=== PATIENT | female | born 1960 | race Caucasian/White ===

== ENCOUNTER 2016-09-05 13:04 | Day surgery (SDC) | payer BC ==
[2016-09-05] MEDS ORDERED: PROPOFOL 10 MG/ML VIAL IV ONE (14:00)
[2016-09-05] MEDS ORDERED: LIDOCAINE 2% MDV (20MG/ML) 20ML VIAL IV ONE (14:00)
--- NOTE | 2016-09-07 15:30 | Operative Note ---
DATE OF SURGERY: 09/05/16. OPERATION: Esophagogastroduodenoscopy with biopsy. REFERRING PHYSICIANS: 1. Danielito Javier 2. Myrtle Chi D.O. INDICATION: A history of esophageal ulcers. Patient with belching and episodic reflux. Upper endoscopy is performed at this time for further evaluation. She uses Nexium on a p.r.n. basis. ANESTHESIA: Intravenous sedation was administered by the Department of Anesthesiology and included Diprivan titrated to effect. PROCEDURE: Following informed consent from this alert individual, including a discussion of the risks and benefits of the procedure and an opportunity for the patient to ask questions, the patient was in the left lateral decubitus position. The Olympus [id number] video endoscope was inserted into the esophagus without resistance. The proximal esophagus has a normal appearance with normal folds and distensibility. The mid and distal esophagus, likewise, were free from mucosal changes. There were no ulcerations or erosions noted. The squamocolumnar junction was smooth and well defined and approximated the diaphragmatic hiatus. The stomach was then entered. The gastric fundus and pars media had a normal appearance with normal folds and distensibility. The antrum evaluated circumferentially demonstrated some mild superficial erythema without ulcerations noted. Biopsies were taken to rule out H. pylori infection. The pylorus itself was symmetrical and patent. The duodenal bulb, sweep, and descending duodenum were examined in a serial fashion and were found to be normal. The instrument was then withdrawn back into the body of the stomach. Retroflexion was accomplished following air insufflation and failed to demonstrate any abnormalities. The endoscope was straightened and withdrawn back through the stomach and esophagus and removed from the patient. She tolerated the procedure well and was returned to the recovery area in stable condition. IMPRESSION: 1. Mild antral gastritis. 2. Otherwise an unremarkable esophagogastroduodenoscopy. Biopsies were taken. RECOMMENDATIONS: The patient was advised that she should receive a copy of her pathology report at home in the next two to three weeks. She may continue to utilize Nexium on an as-needed basis. FLORENTIN HILL cc: Danielito Javier D.O. [facility]: [id number] [facility]
--- NOTE | 2016-09-07 15:41 | Operative Note ---
DATE OF SURGERY: 09/05/2016. REFERRING PHYSICIAN: 1. Myrtle Chi D.O. 2. Danielito Javier PROCEDURE: Colonoscopy to the cecum. INDICATION: Prior history of adenomatous polyps. She returns at this time for surveillance. ANESTHESIA: Intravenous sedation was administered by the Department of Anesthesiology and included Diprivan titrated to effect. PROCEDURE: Following informed consent from this alert individual, including a discussion of the risks and benefits of the procedure and an opportunity for the patient to ask questions, the patient was in the left lateral decubitus position. A digital rectal examination was performed. No abnormalities were noted. Following this, the Olympus PCF-180 video colonoscope was inserted into the rectum without resistance. The rectal mucosa had a normal appearance with normal folds and distensibility. The colonoscope was advanced up through the colon to the level of the cecum without much difficulty. Diverticulosis was noted in the left colon, but no other mucosal changes were appreciated. The cecum was well defined by noting the appendiceal orifice and ileocecal valve. The colon preparation was good. From the base of the cecum, the colonoscope was then withdrawn. No abnormalities were detected except for the above- mentioned diverticulosis in the left colon. Retroflexion in the rectum was endoscopically unremarkable. The endoscope was straightened and removed. The patient tolerated the procedure well and was returned to the recovery area in stable condition. IMPRESSION: 1. Diverticulosis in the left colon. 2. An otherwise unremarkable colonoscopy to the cecum. RECOMMENDATIONS: The patient was advised to have a recheck colonoscopy in five years' time for polyp surveillance. She will otherwise follow up with Dr. Chi and Danielito Javier FLORENTIN HILL D.O. Date Time cc: Caren Blevins P.A. [facility] CENTERCamila
== END 2016-09-05 14:53 | disposition home or self-care (01) ==
LOC: HOP 13:04
PROVIDERS: ATTEND Internal Medicine Gastroenterology
DX: K29.50 Unspecified chronic gastritis without bleeding (principal)

== ENCOUNTER 2016-09-20 14:53 | Emergency (ER) | payer BC ==
--- NOTE | 2016-09-20 15:13 | Emergency Department Record ---
History of Present Illness - General Chief Complaint: Shortness of breath Stated Complaint: SOB,CHEST PRESSURE Time Seen by Provider: 09/20/16 15:08 Source: Patient Mode of Arrival: Ambulatory Limitations: No limitations - History of Present Illness Initial Comments: 55 yo female presents to ED with a CC of "chest pressure" that began just prior to arrival. Patient denies fever, chills, or recent illness symptoms. Patient reports a history of atrial fibrillation previously, sees Dr. Montemayor regularly. MD Complaint: Chest pain Onset/Timin -: Minutes(s) Consistency: Constant Improves With: Nothing Worsens With: Nothing Known History Of: Other Associated Symptoms: Denies other symptoms Treatments Prior to Arrival: Asprin - Related Data Home Medications Medication Instructions Recorded Confirmed Last Taken Aspirin [Aspirin EC] 81 mg PO DAILY 03/18/15 09/20/16 1 Day Ago Esomeprazole Magnesium [Nexium 22.3 mg PO DAILY 03/18/15 09/20/16 1 Day Ago 24Hr] Amoxicillin [Amoxicillin] 500 mg PO BID 09/20/16 09/20/16 Unknown Previous Rx's Medication Instructions Recorded Diltiazem HCl [Cardizem] 60 mg PO TID #90 tablet 04/28/15 Allergies Allergy/AdvReac Type Severity Reaction Status Date / Time ciprofloxacin [From Cipro] Allergy Mild LIP Unverified 08/26/16 11:22 NUMBNESS ciprofloxacin HCl Allergy Mild LIP Unverified 08/26/16 11:22 [From Cipro] NUMBNESS erythromycin base Allergy Unknown VOMITING Unverified 08/26/16 10:19 [ERYTHROMYCIN BASE] meperidine [MEPERIDINE] Allergy Unknown ALTERED Unverified 08/26/16 10:19 MENTAL STATUS Sulfa (Sulfonamide Allergy Unknown RASH Unverified 08/26/16 10:19 Antibiotics) [SULFA (SULFONAMIDE ANTIBIOTICS)] meperidine HCl [From Demerol] AdvReac HYPERSENSIT Unverified 08/26/16 10:19 IVITY Travel Screening - Travel/Exposure Within Last 30 Days Have you traveled within the last 30 days?: No Review of Systems Constitutional: Denies: Chills, Fever, Malaise, Night sweats Eyes: Denies: Eye discharge, Eye pain ENT: Denies: Congestion, Ear pain, Epistaxis Respiratory: Denies: Cough, Dyspnea Cardiovascular: Reports: Chest pain. Denies: Dyspnea on exertion, Palpitations Endocrine: Denies: Fatigue, Heat or cold intolerance Gastrointestinal: Denies: Abdominal pain, Nausea, Vomiting Genitourinary: Denies: Dysuria, Frequency, Hematuria Musculoskeletal: Denies: Arthralgia, Back pain, Gout, Joint swelling Skin: Denies: Bruising, Change in color, Change in hair/nails Neurological: Denies: Abnormal gait, Confusion, Headache, Seizure Psychiatric: Denies: Anxiety Hematological/Lymphatic: Denies: Anemia, Blood Clots Past Medical History - SOCIAL HISTORY Smoking Status: Former smoker - RESPIRATORY Hx Respiratory Disorders: Yes Hx Sleep Apnea: Yes Hx of CPAP: No - CARDIOVASCULAR Hx Cardio Disorders: Yes Hx Abnormal EKG: Yes Hx Cardiac Cath: No Hx Chest Pain: No Hx CHF: No Hx Deep Vein Thrombosis: No Hx Edema: No Hx Heart Attack: No Hx Hypertension: Yes Hx Hypotension: No Hx Irregular Heartbeat: Yes (A-Fib) Hx Palpitations: Yes Hx Pacemaker/Defib: No Hx Vascular Disease: No - NEURO Hx Neuro Disorders: No - GI Hx GI Disorders: Yes Hx Reflux: Yes Hx Ulcer: Yes Hx of Polyps: Yes Comment:: hx of constipation - Hx Genitourinary Disorders: Yes Hx Bladder Problem: Yes (bladder spasms) Comment:: n/a - ENDOCRINE Hx Endocrine Disorders: No Hx Diabetes: No Hx Thyroid Disease: No - MUSCULOSKELETAL Hx Musculoskeletal Disorders: Yes Hx Arthritis: No Hx Back Injury: No Hx Fibromyalgia: No Hx Gout: No Hx Musculoskeletal Disease: No Hx Osteoporosis: No - PSYCH Hx Psych Problems: Yes Hx Anxiety: Yes Hx Behavior Problems: No Hx Depression: Yes Hx Emotional Abuse: No Hx Sexual Abuse: No Hx Suicide Attempt: No - HEMATOLOGY/ONCOLOGY Hx Hematology/Oncology Disorders: No Comment:: Psoriasis Family Medical History Any Significant Family History?: Yes Hx Alcohol Use: Father, Mother Hx Anxiety: Father Hx Diabetes: Grandparents *Diabetes Comment: Both Grandmothers. Hx Heart Disease: Mother *Heart Comment: Atrial fib Hx HTN: Father Hx Stroke: Brother/Sister *Stroke Comment: sister had a stroke. Physical Exam - General General Appearance: Alert, Oriented x3, Cooperative, No acute distress Limitations: No limitations - Head Head exam: Atraumatic, Normocephalic, Normal inspection Head exam detail: negative: Abrasion, Contusion, Dickinson's sign, General tenderness, Hematoma, Laceration - Eye Eye exam: Normal appearance. negative: Conjunctival injection, Periorbital swelling, Periorbital tenderness, Scleral icterus - ENT Ear exam: negative: Auricular hematoma, Auricular trauma Nasal Exam: negative: Discharge, Dried blood, Foreign body Mouth exam: negative: Drooling, Laceration, Muffled voice, Tongue elevation - Neck Neck exam: Normal inspection. negative: Meningismus, Tenderness - Respiratory Respiratory exam: Normal lung sounds bilaterally. negative: Respiratory distress, Rhonchi, Stridor, Wheezes - Cardiovascular Cardiovascular Exam: Irregular rhythm, Tachycardia - GI/Abdominal GI/Abdominal exam: Soft. negative: Distended, Rebound, Rigid, Tenderness - Rectal Rectal exam: Deferred - exam: Deferred - Extremities Extremities exam: Normal inspection. negative: Calf tenderness, Pedal edema, Tenderness - Back Back exam: Reports: Normal inspection. Denies: CVA tenderness (R), CVA tenderness (L) - Neurological Neurological exam: Alert, Normal gait, Oriented X3 - Psychiatric Psychiatric exam: Normal affect, Normal mood - Skin Skin exam: Normal color. negative: Abrasion Type of lesion: negative: abrasion Course Vital Signs 09/20/16 14:55 Temperature 97.9 F Pulse Rate 113 H Respiratory 20 Rate Blood Pressure 146/96 Pulse Ox 97 - Reevaluation(s) Reevaluation #1: 09/20/16 15:25 EKG: Atrial Fibrillation 97 Normal axis, irregular R-R intervals nonspecific ST-T wave changes Previous EKG: NSR 61 (08/29/15) 09/20/16 15:43 Reevaluation #2: 09/20/16 16:10 Labs reviewed and are grossly unremarkable for an acute process. CXR: No acute process. patient has converted back to NSR, heparin held at this time. Patient is deciding on transfer for 2-D echo and cardiac evaluation. Reevaluation #3: 09/20/16 16:32 Case was discussed with Dr. Cervantes, will accept admission. Medical Decision Making - Lab Data Result diagrams: 09/20/16 15:25 09/20/16 15:25 Disposition Disposition: Transfer Clinical Impression: Atrial fibrillation Qualifiers: Atrial fibrillation type: paroxysmal Qualified Code(s): I48.0 - Paroxysmal atrial fibrillation Chest pain Qualifiers: Chest pain type: unspecified Qualified Code(s): R07.9 - Chest pain, unspecified Transfer To: [facility] Reason For Transfer: Atrial fibrillation Accepting Physician: Chest Pain Time Discussed w/Accepting Physician: 16:33 Forms: Patient Portal Access Time of Disposition: 16:33
[2016-09-20] MEDS ORDERED: HEPARIN SODIUM 1000 UNIT/1 ML 10ML VIAL IVP ONE (15:22)
[2016-09-20] MEDS ORDERED: HEPARIN SODIUM/D5W 25,000 UNITS in DEXTROSE 5 % IN WATER 1 BAG IV SCH ×2 (15:30)
[2016-09-20 15:36] LABS: BASO % 0.3 % (0-6); EOS % 1.9 % (0-6); GRAN % 68.3 % (47-80); HEMATOCRIT 47.8 % (35.0-47.0); HEMOGLOBIN 15.2 gm/dl (11.6-16.0); MEAN CELL VOLUME 93.2 fl (81-97); MEAN CORPUSCULAR HEMOGLOBIN 29.6 pg (27-33); MEAN CORPUSCULAR HGB CONC 31.8 g/dl (32-36); MEAN PLATELET VOLUME 9.2 fl (7.4-10.4); MONO % 6.5 % (0-9); PLATELET COUNT 291 K/uL (130-400); RED BLOOD COUNT 5.13 M/uL (3.80-5.40); RED CELL DISTRIBUTION WIDTH 13.4 % (11.5-14.5); WHITE BLOOD COUNT W/O DIFF 6.8 K/uL (4.2-12.2)
[2016-09-20 15:48] LABS: ALB/GLOB RATIO 1.1 (1.1-1.8); ALBUMIN 4.5 gm/dL (3.5-5.0); ALKALINE PHOSPHATASE 119 U/L (38-126); ALT/SGPT 27 U/L (9-52); ANION GAP 13.5 (7-16); AST/SGOT 22 U/L (14-36); BILIRUBIN,TOTAL 0.65 mg/dL (0.2-1.3); BLOOD UREA NITROGEN 13 mg/dL (7-17); CARBON DIOXIDE 25.5 mmol/L (22-30); CREATINE PHOSPHOKINASE 114 U/L (30-135); CREATININE 0.7 mg/dL (0.52-1.04); EST GLOMERULAR FILTRATION RATE > 60 ml/min; GLUCOSE,RANDOM 150 mg/dL (70-110); TOTAL PROTEIN 8.6 gm/dL (6.3-8.2)
[2016-09-20 16:00] LABS: CKMB 1.1 ug/L (0-6)
[2016-09-20 16:03] LABS: TROPONIN I < 0.012 ng/mL (0.00-0.034)
[2016-09-20] MEDS ORDERED: RIVAROXABAN 20 MG TABLET PO SCH (17:30)
--- NOTE | 2016-09-23 14:39 | RADIOLOGY REPORT ---
EXAM: CHEST, TWO VIEWS HISTORY: CHEST PAIN. TECHNIQUE: PA and lateral views of the chest were obtained. Comparison: Two view chest dated 06/26/16. FINDINGS: The heart size is normal. The lungs appear expanded with no acute infiltrate seen. No pleural effusion or pneumothorax evident. IMPRESSION: THE CHEST APPEARS NEGATIVE WITH NO DEFINITE ACUTE INFILTRATE SEEN. JOB NUMBER: [id number] MTDD
== END 2016-09-20 17:43 | disposition short-term general hospital (02) ==
LOC: ER 14:53
DX: I48.0 Paroxysmal atrial fibrillation (principal); I10 Essential (primary) hypertension; Z87.891 Personal history of nicotine dependence
CPT/HCPCS: 71020; 80053; 82550; 82553; 84484; 85025; 93005; 99285

== ENCOUNTER 2016-10-05 23:10 | Emergency (ER) | payer BC ==
--- NOTE | 2016-10-05 23:41 | Emergency Department Record ---
History of Present Illness - General Chief Complaint: Palpitations Time Seen by Provider: 10/05/16 23:27 Source: Patient Mode of Arrival: Ambulatory Limitations: No limitations - History of Present Illness Initial Comments: The patient has a long hx of intermittent Afib and now went into it again at 7: 30 pm tonight. She felt the irregular heart beating and the vague discomfort that she normally gets with it. There was no SOB, JOCELYNE, or sweating. The patient did have an episode of the same thing 2 weeks ago and was transferred from here at [facility] to [facility]. She said she did have a neg EST on that visit and she does have an appointment with her Wireless Construction Manager in 3 weeks. MD Complaint: Atrial fibrillation Onset/Timin -: Hour(s) Arrythmia History: Atrial fibrillation Associated Symptoms: Denies other symptoms Treatments Prior to Arrival: Calcium channel katya Treatment Prior to Arrival Comment:: Aspirin - Related Data Home Medications Medication Instructions Recorded Confirmed Last Taken Aspirin [Aspirin EC] 81 mg PO DAILY 03/18/15 10/05/16 10/05/16 Esomeprazole Magnesium [Nexium 22.3 mg PO DAILY 03/18/15 10/05/16 10/05/16 24Hr] Previous Rx's Medication Instructions Recorded Diltiazem HCl [Cardizem] 60 mg PO TID #90 tablet 04/28/15 Allergies Allergy/AdvReac Type Severity Reaction Status Date / Time ciprofloxacin [From Cipro] Allergy Mild LIP Verified 10/05/16 23:24 NUMBNESS ciprofloxacin HCl Allergy Mild LIP Verified 10/05/16 23:24 [From Cipro] NUMBNESS erythromycin base Allergy Unknown VOMITING Verified 10/05/16 23:24 [ERYTHROMYCIN BASE] meperidine [MEPERIDINE] Allergy Unknown ALTERED Verified 10/05/16 23:24 MENTAL STATUS Sulfa (Sulfonamide Allergy Unknown RASH Verified 10/05/16 23:24 Antibiotics) [SULFA (SULFONAMIDE ANTIBIOTICS)] meperidine HCl [From Demerol] AdvReac HYPERSENSIT Verified 10/05/16 23:24 IVITY Travel Screening - Travel/Exposure Within Last 30 Days Have you traveled within the last 30 days?: No - Travel/Exposure Within Last Year Have you traveled outside the [place] in the last year?: No - Additonal Travel Details Have you been exposed to anyone with a communicable illness?: No Review of Systems Constitutional: Denies: Chills, Fever Eyes: Denies: Eye discharge ENT: Denies: Congestion Respiratory: Denies: Cough, Dyspnea Past Medical History - SOCIAL HISTORY Smoking Status: Former smoker - RESPIRATORY Hx Respiratory Disorders: Yes Hx Sleep Apnea: Yes Hx of CPAP: No - CARDIOVASCULAR Hx Cardio Disorders: Yes Hx Abnormal EKG: Yes Hx Cardiac Cath: No Hx Chest Pain: No Hx CHF: No Hx Deep Vein Thrombosis: No Hx Edema: No Hx Heart Attack: No Hx Hypertension: Yes Hx Hypotension: No Hx Irregular Heartbeat: Yes (A-Fib) Hx Palpitations: Yes Hx Pacemaker/Defib: No Hx Vascular Disease: No - NEURO Hx Neuro Disorders: No - GI Hx GI Disorders: Yes Hx Reflux: Yes Hx Ulcer: Yes Hx of Polyps: Yes Comment:: hx of constipation - Hx Genitourinary Disorders: Yes Hx Bladder Problem: Yes (bladder spasms) Comment:: n/a - ENDOCRINE Hx Endocrine Disorders: No Hx Diabetes: No Hx Thyroid Disease: No - MUSCULOSKELETAL Hx Musculoskeletal Disorders: Yes Hx Arthritis: No Hx Back Injury: No Hx Fibromyalgia: No Hx Gout: No Hx Musculoskeletal Disease: No Hx Osteoporosis: No - PSYCH Hx Psych Problems: Yes Hx Anxiety: Yes Hx Behavior Problems: No Hx Depression: Yes Hx Emotional Abuse: No Hx Sexual Abuse: No Hx Suicide Attempt: No - HEMATOLOGY/ONCOLOGY Hx Hematology/Oncology Disorders: No Comment:: Psoriasis Family Medical History Any Significant Family History?: No Hx Alcohol Use: Father, Mother Hx Anxiety: Father Hx Diabetes: Grandparents *Diabetes Comment: Both Grandmothers. Hx Heart Disease: Mother *Heart Comment: Atrial fib Hx HTN: Father Hx Stroke: Brother/Sister *Stroke Comment: sister had a stroke. Physical Exam - General General Appearance: Alert, Oriented x3, Cooperative, No acute distress - Head Head exam: Atraumatic, Normocephalic, Normal inspection - Eye Eye exam: Normal appearance, PERRL - Neck Neck exam: Normal inspection, Full ROM. negative: Tenderness - Respiratory Respiratory exam: Normal lung sounds bilaterally. negative: Respiratory distress - Cardiovascular Cardiovascular Exam: Regular rate, Normal rhythm, Normal heart sounds - GI/Abdominal GI/Abdominal exam: Soft, Normal bowel sounds. negative: Tenderness - Extremities Extremities exam: Normal inspection, Full ROM, Normal capillary refill. negative: Tenderness - Neurological Neurological exam: Normal gait. negative: Abnormal gait Course Vital Signs 10/05/16 23:12 Temperature 97.4 F L Pulse Rate 84 Respiratory 16 Rate Blood Pressure 131/76 Pulse Ox 98 - Reevaluation(s) Reevaluation #1: The patient is doing well. She denies any CP, SOB, JOCELYNE or any visual changes. There are no palpitations like when she is in Afib. Her monitor has been NSR since she has been in the ED. 10/06/16 00:39 Reevaluation #2: The patient is doing very well. She denies any symptoms, or any CP, SOB or JOCELYNE. The 2nd EKG is WNL and in NSR. I did get her up walking and she denies any problems or issues. She is to continue her medicine and see her PCP and Wireless Construction Manager as directed. 10/06/16 00:59 Medical Decision Making - Data Complexity MDM Data: EKG Ordered and/or Reviewed - Lab Data Result diagrams: 10/05/16 23:43 10/05/16 23:43 - EKG Data -: EKG Interpreted by Me EKG: No Acute Changes, Normal EKG, Unchanged From Previous Disposition Disposition: Discharge Clinical Impression: Palpitations Disposition: Home, Self-Care Condition: (1) Good Instructions: Palpitations (ED) Additional Instructions: Please continue your regular medicines. Please see your Wireless Construction Manager as planned previously. Return to the ER for any problems or return of the Afib. Forms: Patient Portal Access Time of Disposition: 00:56
[2016-10-05 23:53] LABS: BASO % 0.2 % (0-6); GRAN % 65.4 % (47-80); HEMATOCRIT 48.5 % (35.0-47.0); HEMOGLOBIN 15.6 gm/dl (11.6-16.0); LYMPH % 23.3 % (16-45); MEAN CELL VOLUME 93.1 fl (81-97); MEAN CORPUSCULAR HEMOGLOBIN 29.9 pg (27-33); MEAN CORPUSCULAR HGB CONC 32.2 g/dl (32-36); MEAN PLATELET VOLUME 9.5 fl (7.4-10.4); MONO % 8.1 % (0-9); PLATELET COUNT 281 K/uL (130-400); RED BLOOD COUNT 5.21 M/uL (3.80-5.40); WHITE BLOOD COUNT W/O DIFF 6.6 K/uL (4.2-12.2)
[2016-10-06 00:07] LABS: ANION GAP 15.4 (7-16); BLOOD UREA NITROGEN 15 mg/dL (7-17); CARBON DIOXIDE 26.6 mmol/L (22-30); CREATINE PHOSPHOKINASE 88 U/L (30-135); CREATININE 0.7 mg/dL (0.52-1.04); EST GLOMERULAR FILTRATION RATE > 60 ml/min; GLUCOSE,RANDOM 116 mg/dL (70-110)
[2016-10-06 00:19] LABS: CKMB 0.9 ug/L (0-6)
[2016-10-06 00:21] LABS: TROPONIN I < 0.012 ng/mL (0.00-0.034)
== END 2016-10-06 01:06 | disposition home or self-care (01) ==
LOC: ER 23:10
DX: R00.2 Palpitations (principal); I48.91 Unspecified atrial fibrillation
CPT/HCPCS: 80048; 82550; 82553; 84484; 85025; 93005; 93010; 99284

== ENCOUNTER 2016-11-03 20:41 | Observation (INO) | payer BC ==
[2016-11-03] MEDS ORDERED: ASPIRIN 325 MG TABLET PO ONE (21:11)
[2016-11-03] MEDS ORDERED: LORAZEPAM 2 MG/ML VIAL IV ONE (21:12)
[2016-11-03] MEDS ORDERED: METOPROLOL TART 5 MG/5 ML VIAL IV ONE (21:15)
--- NOTE | 2016-11-03 21:15 | Emergency Department Record ---
History of Present Illness - General Chief Complaint: Chest Pain Stated Complaint: NAUSEA AND CHEST PAIN Time Seen by Provider: 11/03/16 21:02 Source: Patient Mode of Arrival: Ambulatory Limitations: No limitations - History of Present Illness Initial Comments: The patient is here due to L chest discomfort with palpitations which started about an hour and a half ago. She has a long hx of intermittent Afib and has been to the ER multiple times for it. She states she has always converted to NSR on her own and has never needed to be cardioverted. She denies any SOB, JOCELYNE , sweating, nausea or lightheadedness. MD Complaint: Chest pain Onset/Timin -: Hour(s) Onset: During rest Pain Location: Left chest Pain Radiation: None Severity: Mild Severity scale (1-10): 10 Quality: Other Consistency: Intermittent Improves With: Nothing Worsens With: Nothing Context: Other Anginal Symptoms: Nausea Treatments Prior to Arrival: None Treatment Prior to Arrival Comment:: diltiazem - Related Data Home Medications Medication Instructions Recorded Confirmed Last Taken Aspirin [Aspirin EC] 81 mg PO DAILY 03/18/15 11/03/16 10/05/16 Esomeprazole Magnesium [Nexium 22.3 mg PO DAILY 03/18/15 11/03/16 10/05/16 24Hr] Previous Rx's Medication Instructions Recorded Diltiazem HCl [Cardizem] 60 mg PO TID #90 tablet 04/28/15 Allergies Allergy/AdvReac Type Severity Reaction Status Date / Time ciprofloxacin [From Cipro] Allergy Mild LIP Verified 10/05/16 23:24 NUMBNESS ciprofloxacin HCl Allergy Mild LIP Verified 10/05/16 23:24 [From Cipro] NUMBNESS erythromycin base Allergy Unknown VOMITING Verified 10/05/16 23:24 [ERYTHROMYCIN BASE] meperidine [MEPERIDINE] Allergy Unknown ALTERED Verified 10/05/16 23:24 MENTAL STATUS Sulfa (Sulfonamide Allergy Unknown RASH Verified 10/05/16 23:24 Antibiotics) [SULFA (SULFONAMIDE ANTIBIOTICS)] meperidine HCl [From Demerol] AdvReac HYPERSENSIT Verified 10/05/16 23:24 IVITY Travel Screening - Travel/Exposure Within Last 30 Days Have you traveled within the last 30 days?: No - Travel/Exposure Within Last Year Have you traveled outside the [place] in the last year?: No - Additonal Travel Details Have you been exposed to anyone with a communicable illness?: No - Travel Symptoms Symptom Screening: None Review of Systems Constitutional: Denies: Chills, Fever Eyes: Denies: Eye discharge ENT: Denies: Congestion Respiratory: Denies: Cough, Dyspnea Cardiovascular: Denies: Arrhythmia, Chest pain, Dyspnea on exertion Endocrine: Denies: Fatigue Gastrointestinal: Denies: Abdominal pain, Nausea Genitourinary: Denies: Dysuria Musculoskeletal: Denies: Back pain Skin: Denies: Bruising Past Medical History - SOCIAL HISTORY Smoking Status: Former smoker Alcohol Use: None Drug Use: None - RESPIRATORY Hx Respiratory Disorders: Yes Hx Sleep Apnea: Yes Hx of CPAP: No - CARDIOVASCULAR Hx Cardio Disorders: Yes Hx Abnormal EKG: Yes Hx Cardiac Cath: No Hx Chest Pain: No Hx CHF: No Hx Deep Vein Thrombosis: No Hx Edema: No Hx Heart Attack: No Hx Hypertension: Yes Hx Hypotension: No Hx Irregular Heartbeat: Yes (A-Fib) Hx Palpitations: Yes Hx Pacemaker/Defib: No Hx Vascular Disease: No - NEURO Hx Neuro Disorders: No - GI Hx GI Disorders: Yes Hx Reflux: Yes Hx Ulcer: Yes Hx of Polyps: Yes Comment:: hx of constipation - Hx Genitourinary Disorders: Yes Hx Bladder Problem: Yes (bladder spasms) Comment:: n/a - ENDOCRINE Hx Endocrine Disorders: No Hx Diabetes: No Hx Thyroid Disease: No - MUSCULOSKELETAL Hx Musculoskeletal Disorders: Yes Hx Arthritis: No Hx Back Injury: No Hx Fibromyalgia: No Hx Gout: No Hx Musculoskeletal Disease: No Hx Osteoporosis: No - PSYCH Hx Psych Problems: Yes Hx Anxiety: Yes Hx Behavior Problems: No Hx Depression: Yes Hx Emotional Abuse: No Hx Sexual Abuse: No Hx Suicide Attempt: No - HEMATOLOGY/ONCOLOGY Hx Hematology/Oncology Disorders: No Comment:: Psoriasis Family Medical History Any Significant Family History?: Yes Hx Alcohol Use: Father, Mother Hx Anxiety: Father Hx Diabetes: Grandparents *Diabetes Comment: Both Grandmothers. Hx Heart Disease: Mother *Heart Comment: Atrial fib Hx HTN: Father Hx Stroke: Brother/Sister *Stroke Comment: sister had a stroke. Physical Exam - General General Appearance: Alert, Oriented x3, Cooperative, No acute distress - Head Head exam: Atraumatic, Normocephalic, Normal inspection - Eye Eye exam: Normal appearance, PERRL - ENT Throat exam: Normal inspection. negative: Tonsillar erythema, Tonsillar exudate - Neck Neck exam: Normal inspection, Full ROM. negative: Tenderness - Respiratory Respiratory exam: Normal lung sounds bilaterally. negative: Respiratory distress - Cardiovascular Cardiovascular Exam: Irregular rhythm. negative: Regular rate, Normal rhythm, Systolic murmur - GI/Abdominal GI/Abdominal exam: Soft, Normal bowel sounds. negative: Tenderness - Extremities Extremities exam: Normal inspection, Full ROM, Normal capillary refill. negative: Tenderness - Neurological Neurological exam: Alert, Normal gait. negative: Abnormal gait Course Vital Signs 11/03/16 20:50 Temperature 98.6 F Pulse Rate 120 H Respiratory 20 Rate Blood Pressure 141/72 Pulse Ox 96 - Reevaluation(s) Reevaluation #1: The patient is doing very well at this time. She is resting comfortably and her HR is in the 70's. She denies any significant pain or discomfort. 11/03/16 21:49 Reevaluation #2: The patient is doing very well at this time. She denies any CP, SOB, or JOCELYNE but is still in Afib with the rate well controlled in the 70's. I explained to her we will start her on Lovenox and admit her to the hospital. She will be able to see Dr. Redding tomorrow from [facility] for further evaluation and recommendations. Due to the fact she has always converted to NSR on her own I will use Lovenox instead of Heparin for anticoagulation. 11/03/16 22:42 Medical Decision Making - Data Complexity MDM Data: Labs Ordered and/or Reviewed, EKG Ordered and/or Reviewed - Lab Data Result diagrams: 11/03/16 21:26 11/03/16 21:26 - EKG Data -: EKG Interpreted by Me (Afib at 130, neg ischemic changes.) Disposition Disposition: Admit Clinical Impression: Atrial fibrillation with controlled ventricular response Disposition: Still a Patient at [facility] Decision to Admit: Admit from ER Decision to Admit Date: 11/03/16 Decision to Admit Time: 22:44 Accepting Physician: Taya Time Discussed w/Accepting Physician: 22:44 Condition: (2) Stable Forms: Patient Portal Access Time of Disposition: 22:44
[2016-11-03 21:35] LABS: BASO % 0.2 % (0-6); EOS % 1.2 % (0-6); GRAN % 62.7 % (47-80); HEMATOCRIT 48.5 % (35.0-47.0); LYMPH % 25.4 % (16-45); MEAN CELL VOLUME 91.9 fl (81-97); MEAN CORPUSCULAR HEMOGLOBIN 30.3 pg (27-33); MEAN PLATELET VOLUME 9.4 fl (7.4-10.4); MONO % 10.5 % (0-9); PLATELET COUNT 254 K/uL (130-400); RED BLOOD COUNT 5.28 M/uL (3.80-5.40); RED CELL DISTRIBUTION WIDTH 13.3 % (11.5-14.5); WHITE BLOOD COUNT W/O DIFF 4.9 K/uL (4.2-12.2)
[2016-11-03 21:50] LABS: ANION GAP 12.3 (7-16); BLOOD UREA NITROGEN 15 mg/dL (7-17); CARBON DIOXIDE 24.7 mmol/L (22-30); CREATINE PHOSPHOKINASE 77 U/L (30-135); CREATININE 0.8 mg/dL (0.52-1.04); EST GLOMERULAR FILTRATION RATE > 60 ml/min; GLUCOSE,RANDOM 110 mg/dL (70-110)
[2016-11-03 22:02] LABS: CKMB 0.5 ug/L (0-6)
[2016-11-03 22:03] LABS: TROPONIN I < 0.012 ng/mL (0.00-0.034)
[2016-11-03 22:07] LABS: INR 1.02; PARTIAL THROMBOPLASTIN TIME 26.8 SECONDS (24.5-39.1); PROTHROMBIN TIME (PATIENT) 11.5 SECONDS (9.5-12.1)
[2016-11-03] MEDS ORDERED: ENOXAPARIN 100 MG/ML SYR SQ ONE (22:39)
[2016-11-03] MEDS ORDERED: LORAZEPAM 0.5 MG TABLET PO PRN (23:37)
[2016-11-03] MEDS ORDERED: ACETAMINOPHEN 500 MG TABLET PO PRN (23:37)
[2016-11-04 03:53] LABS: CKMB 0.4 ug/L (0-6)
[2016-11-04 03:55] LABS: TROPONIN I < 0.012 ng/mL (0.00-0.034)
[2016-11-04] MEDS ORDERED: DILTIAZEM HCL 30 MG TABLET PO SCH ×4 (04:00→20:00)
[2016-11-04] MEDS ORDERED: ESOMEPRAZOLE PO PRN (09:15)
[2016-11-04] MEDS ORDERED: DILTIAZEM HCL 60 MG PO SCH (10:00)
[2016-11-04] MEDS ORDERED: ASPIRIN 325 MG TAB ENTERIC-COATED PO SCH (10:00)
--- NOTE | 2016-11-04 10:08 | Discharge Note ---
Discharge Note - Date Date of Discharge Note: 11/04/16 Disposition: Home, Self-Care Condition: (1) Good Additional Instructions: follow up with primary in one week chqange cardizem to cardizem(diltiazem) CD 180 mg daily if breakthrough atrila fib take one short acting cardizem 60 mag and if not better in one hour go to ED. Prescriptions: Diltiazem HCl [Diltiazem ER] 180 mg PO DAILY #30 tab.er.24h Forms: Patient Portal Access
[2016-11-04 11:41] LABS: CKMB 0.5 ug/L (0-6)
[2016-11-04 11:45] LABS: TROPONIN I < 0.012 ng/mL (0.00-0.034)
[2016-11-04] MEDS ORDERED: DILTIAZEM 60 MG PO SCH (12:00)
--- NOTE | 2016-11-04 16:01 | Discharge Summary ---
DATE OF DISCHARGE: 11/04/2016. DISCHARGE DIAGNOSES: 1. Atrial fibrillation; converted after three hours with her Cardizem and one dose of Lopressor 5.0 mg intravenous. She is in normal sinus rhythm at this time. 2. Anxiety and depression. 3. Previous history of atrial fibrillation, but her CHADS score is low, and she needs no anticoagulation. ATTENDING PHYSICIAN: Calderon Bain D.O. REASON FOR HOSPITALIZATION: This 55-year-old female presented to the emergency department with fullness in her epigastric chest area and a swishing sensation when her heart was going fast. HISTORY OF THE PRESENT ILLNESS: She came to the emergency room and she was in atrial fibrillation with a rate of about 120. She was given 5.0 mg of Lopressor intravenous and it came down into the 70s. She converted about three hours later to normal sinus rhythm and has been in normal sinus rhythm since then. DIAGNOSTIC DATA: EKG showed no acute changes. Cardiac enzymes were negative. CONSULTATION: She had a cardiology consult with Dr. Redding who felt that she did not warrant anticoagulation because of a low CHADS score. He recommended instead of using the Cardizem at 60 mg three times a day that she take Cardizem- CD 180 mg once a day. If she has a breakthrough episode of atrial fibrillation , she can take her short-acting 60 mg Cardizem. If it does not go away in an hour she should return to the emergency department for evaluation. HOSPITAL COURSE: Improved. DISCHARGE INSTRUCTIONS: 1. Follow up with her primary physician, Danielito Javier 2. Activity as tolerated. 3. Diet as tolerated. DISCHARGE MEDICATIONS: 1. Continue her home medications. However, stop the short-acting Cardizem and only use it for breakthrough tachycardia and atrial fibrillation. She should go on diltiazem extended relief 180 mg once a day. I have given her 30 pills. Use her short-acting Cardizem or diltiazem 60 mg for breakthrough tachycardia. 2. Nexium once a day, aspirin 81 mg a day. Calderon Bain D.O. Date Time JOB NUMBER: [id number] [id number]
--- NOTE | 2016-11-07 07:16 | History and Physical Report ---
DATE OF DICTATION: 11/04/2016. DATE OF ADMISSION: 11/03/2016. CHIEF COMPLAINT: Tachycardia and chest pressure. HISTORY OF PRESENT ILLNESS: She actually described her chest pressure as just a whooshing feeling in her chest. At the time of my evaluation on 11/04/2016, she had no chest pain. She denied any caffeine use or anything that would cause her tachycardia. She states that she has had atrial fibrillation three or four times in the past. Because her CHADS score is low, she is not on any anticoagulants. 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 Montemayor. She was initially evaluated by Dr. Velez and was admitted to the hospital for serial cardiac enzymes. In the emergency department she was given Lopressor 5.0 mg intravenous and her normal Cardizem 60 mg. This slowed her heart rate from 130 down to 70, and about three hours later she converted to normal sinus rhythm. PAST MEDICAL HISTORY: She has had atrial fibrillation two or three times in the past, anxiety and depression. Her primary physician is Dr. Sandra in [place]. Gastroesophageal reflux disease. PAST SURGICAL HISTORY: Dilatation and curettage times two. MEDICATIONS ON ADMISSION: Nexium once a day, aspirin 81 mg daily. Diltiazem 60 mg three times a day, but she states that she has been missing some of these pills on and off. ALLERGIES: Cipro, erythromycin, Demerol, sulfa. FAMILY/PSYCHOSOCIAL HISTORY: She is a former smoker; stopped in 2015. Her mother and father had alcohol problems. Her father had anxiety problems. Her grandparents had diabetes. Her mother had heart disease including atrial fibrillation. Her father had hypertension. Her sister had a stroke. REVIEW OF SYSTEMS: HEENT: No upper respiratory infection symptoms, cough, cold, or congestion. Cardiovascular: See Chief Complaint. She has tachycardia, palpitations, and a whooshing sensation in her chest. Respiratory: She denies shortness of breath, cough, cold, or congestion. Gastrointestinal: No nausea, vomiting, diarrhea, black stools, or bloody stools. Genitourinary: No dysuria, hematuria, frequency, or burning on urination. Musculoskeletal: No joint or bone abnormalities. Neurologic: No cerebrovascular accident, paralysis, or paraesthesias. Gynecologic: No abnormal lumps in her breasts or abnormal vaginal bleeding. Endocrine: No diabetes or thyroid disease. Integument: No rash, ulcers, changing moles, or yellow skin. PHYSICAL EXAMINATION: General: Height is 5 feet, 5 inches. Weight is 280 pounds. Vital Signs: Temperature is 98.3, pulse is 91, blood pressure is 103/68, respiratory rate is 18, pulse oximetry is 96% on room air. Her cardiac monitoring shows normal sinus rhythm. Her EKG shows normal sinus rhythm without any ST T-wave changes. HEENT: Pupils are equal, round, and reactive to light and accommodation. Extraocular muscles are intact. The throat is clear. The nose is clear. The tympanic membranes are quesada. Neck: The neck is supple. No jugular venous distension. No hepatojugular reflex. No carotid bruit. The thyroid is smooth. Cardiovascular: Regular rate and rhythm without murmurs, clicks, rubs, or gallops. Respiratory: Clear to auscultation and percussion. Abdomen: Soft and nontender. No hepatosplenomegaly. No masses. No tenderness. Bowel sounds are active. Extremities: No pitting edema. No cyanosis. No clubbing. Full range of motion. Peripheral pulses are good. Breasts: Normal male breasts. Breasts, Gynecological, and Rectal Examinations: Deferred. Neurological Examination: Cranial nerves II through XII are intact. No gross defect. Sensation is normal. Strength is normal. Deep tendon reflexes are equal bilaterally. Babinski is negative. Mental Status: Alert and oriented times three. IMPRESSIONS: Atrial fibrillation which has converted to normal sinus rhythm, intermittent. Her CHADS score is low. PLAN: Cardiology consult. Cardiac monitoring and increased ambulation. Calderon Bain D.O. Date Time JOB NUMBER: [id number] [facility]
--- NOTE | 2016-11-07 15:28 | Medical Records Consult ---
HISTORY OF PRESENT ILLNESS: It was nice to see Ms. Taylor with a chief complaint of recurrent atrial fibrillation. She is a 55-year-old white female with a CHADS score of 0 who has a history of paroxysmal atrial fibrillation. She is followed by Dr. Montemayor in our office. She was seen not too long ago on the 28 of October in follow up of her nuclear stress test which was normal. She had this after a hospitalization in August of this year. She basically came in with recurrent atrial fibrillation. She received some intravenous Cardizem and converted spontaneously. It lasted for about two hours with symptoms of shortness of breath and vague chest heaviness. It has not recurred since she has been in the hospital. She missed a dose of Cardizem last week, and it sounds like she may have also missed some doses since then. She takes 60 mg of diltiazem t.i.d. She is also on aspirin 81 mg a day and takes Nexium 40 mg a day. She was previously a smoker but quit in 2013. She denies any PND or orthopnea or any ankle edema. She denies any presyncope or syncope. She has an appointment to follow up with Dr. Montemayor at the end of this month after an echocardiogram. Apparently she had a nuclear study which he actually read. There was a suggestion of possible myocardial mass. The perfusion study, though, was normal. MEDICATIONS: See above. ALLERGIES: Demerol, erythromycin, sulfonamides. PAST MEDICAL HISTORY: She has a history of gastroesophageal reflux disease, bronchitis. She has a history of anxiety. There is no well-documented history of hypertension. I think she misinterprets that as anxiety. PAST SURGICAL HISTORY: Dilatation and curettage. FAMILY HISTORY: Positive for hypertension, atrial fibrillation. SOCIAL HISTORY: As mentioned above, she quit smoking in 2013. She does have a history of alcohol abuse in the past but is currently not drinking. REVIEW OF SYSTEMS: General: Decreased energy. Negative for weight gain. Negative for recurrent chills and fevers. Integument: She has a history of psoriasis and otherwise no significant changes in the skin. HEENT: She wears glasses. She denies any changes in her vision, diplopia, or hemianopsia. She denies hearing loss or epistaxis, hoarseness, difficulty speaking. She denies headaches. Respiratory: She denies any excessive shortness of breath, PND or orthopnea, cough. Cardiovascular: See history of present illness. Gastrointestinal: She has a history of gastroesophageal reflux disease. She denies any recent melena or hematochezia. Genitourinary: She denies recent hematuria or dysuria. Musculoskeletal: She denies any active back or joint problems. Neurological: She denies paralysis, paresthesias, or diplopia. Psychiatric: She does have a history of anxiety and depression. PHYSICAL EXAMINATION: Vital Signs: Blood pressure 140/70. Pulse currently is 80 and regular. Temperature 98.6. General: Obese white female who is anxious. HEENT: Normocephalic, atraumatic. Pupils are equal, round, and reactive to light and accommodation. EOMs are intact. The lid conjunctivae and sclerae are clear. Buccal mucosa is pink and moist. Uvula is midline via traction. Neck: The neck is thick. There is no thyromegaly or carotid bruit. Chest: Clear to auscultation and percussion. Cardiovascular: Regular. No lifts, gallops, heaves, or murmurs. Abdomen: The abdomen is soft. There is no hepatosplenomegaly. Genital Rectal: Deferred. Extremities: Extremities are warm. Pulses are 2+/4. DIAGNOSTIC DATA: Initial EKG showed rapid atrial fibrillation converted to sinus rhythm. IMPRESSIONS: 1. Paroxysmal atrial fibrillation with a CHADS score of 0. 2. Obesity. 3. Gastroesophageal reflux disease. PLAN: I have recommended that she be switched over to Cardizem-CD 180 mg once a day to avoid missing doses of her Cardizem which I think is probably what happened this time around. A prescription was given to her for this. She can, on occasion, take an extra dose of the short-acting Cardizem if she has breakthrough atrial fibrillation. However, if it lasts for longer than an hour , she should get into the emergency room. She will follow up with Dr. Montemayor as previously scheduled. Dino Redding M.D. Date Time Job Number: [id number] [facility] NETWORK[facility]ila
== END 2016-11-04 13:30 | disposition home or self-care (01) ==
LOC: ER 20:41 → MEDSURG 22:53
PROVIDERS: ADMIT Emergency Medicine; ATTEND Emergency Medicine
DX: I48.0 Paroxysmal atrial fibrillation (principal); I10 Essential (primary) hypertension; K21.9 Gastro-esophageal reflux disease without esophagitis
CPT/HCPCS: 80048; 82550; 82553; 84484; 85025; 85610; 85730; 93005; 93010; 94760; 96372; 96374; 96375; 99220; 99285; J1650

== ENCOUNTER 2016-11-13 15:29 | Emergency (ER) | payer BC ==
--- NOTE | 2016-11-13 15:48 | Emergency Department Record ---
History of Present Illness - General Chief Complaint: Arrythmia/Palpitations Stated Complaint: "A FIB" AND BLADDER Time Seen by Provider: 11/13/16 15:42 Source: Patient, Family Mode of Arrival: Wheelchair Limitations: No limitations - History of Present Illness Initial Comments: 56 yo female presents with palpitations that started about 2 hours ago. She was talking with her mother on the phone when it occurred. No chest pain or syncope. She has a history of recurrent atrial fibrillation. 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 She was last admitted with atrial fibrillation about 10 days ago. 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 - Related Data Home Medications Medication Instructions Recorded Confirmed Last Taken Aspirin [Aspirin EC] 81 mg PO DAILY 03/18/15 11/13/16 10/05/16 Esomeprazole Magnesium [Nexium 22.3 mg PO DAILY PRN 03/18/15 11/13/16 10/05/16 24Hr] Diltiazem HCl [Diltiazem ER] 60 mg PO TID 11/13/16 11/13/16 Unknown Allergies Allergy/AdvReac Type Severity Reaction Status Date / Time ciprofloxacin [From Cipro] Allergy Mild LIP Verified 10/05/16 23:24 NUMBNESS ciprofloxacin HCl Allergy Mild LIP Verified 10/05/16 23:24 [From Cipro] NUMBNESS erythromycin base Allergy Unknown VOMITING Verified 10/05/16 23:24 [ERYTHROMYCIN BASE] meperidine [MEPERIDINE] Allergy Unknown ALTERED Verified 10/05/16 23:24 MENTAL STATUS Sulfa (Sulfonamide Allergy Unknown RASH Verified 10/05/16 23:24 Antibiotics) [SULFA (SULFONAMIDE ANTIBIOTICS)] meperidine HCl [From Demerol] AdvReac HYPERSENSIT Verified 10/05/16 23:24 IVITY Travel Screening - Travel/Exposure Within Last 30 Days Have you traveled within the last 30 days?: No Review of Systems Constitutional: Denies: Chills, Fever, Malaise, Weakness Eyes: Denies: Eye discharge ENT: Denies: Congestion, Throat pain Respiratory: Denies: Cough, Dyspnea, Hemoptysis, Stridor, Wheezes Cardiovascular: Reports: Arrhythmia, Palpitations. Denies: Chest pain, Dyspnea on exertion, Edema, Syncope Endocrine: Denies: Fatigue, Polyuria Gastrointestinal: Denies: Abdominal pain, Diarrhea, Nausea, Vomiting Genitourinary: Reports: Dysuria. Denies: Urgency Musculoskeletal: Denies: Arthralgia, Back pain, Myalgia Skin: Denies: Bruising, Change in color, Rash Neurological: Denies: Confusion, Headache Psychiatric: Denies: Anxiety Hematological/Lymphatic: Denies: Blood Clots, Easy bleeding, Easy bruising, Swollen glands Past Medical History - SOCIAL HISTORY Smoking Status: Former smoker Alcohol Use: None Drug Use: None - RESPIRATORY Hx Respiratory Disorders: Yes Hx Sleep Apnea: Yes Hx of CPAP: No - CARDIOVASCULAR Hx Cardio Disorders: Yes Hx Abnormal EKG: Yes Hx Cardiac Cath: No Hx Chest Pain: No Hx CHF: No Hx Deep Vein Thrombosis: No Hx Edema: No Hx Heart Attack: No Hx Hypertension: Yes Hx Hypotension: No Hx Irregular Heartbeat: Yes (A-Fib) Hx Palpitations: Yes Hx Pacemaker/Defib: No Hx Vascular Disease: No - NEURO Hx Neuro Disorders: No - GI Hx GI Disorders: Yes Hx Reflux: Yes Hx Ulcer: Yes Hx of Polyps: Yes Comment:: hx of constipation - Hx Genitourinary Disorders: Yes Hx Bladder Problem: Yes (bladder spasms) Comment:: n/a - ENDOCRINE Hx Endocrine Disorders: No Hx Diabetes: No Hx Thyroid Disease: No - MUSCULOSKELETAL Hx Musculoskeletal Disorders: Yes Hx Arthritis: No Hx Back Injury: No Hx Fibromyalgia: No Hx Gout: No Hx Musculoskeletal Disease: No Hx Osteoporosis: No - PSYCH Hx Psych Problems: Yes Hx Anxiety: Yes Hx Behavior Problems: No Hx Depression: Yes Hx Emotional Abuse: No Hx Sexual Abuse: No Hx Suicide Attempt: No - HEMATOLOGY/ONCOLOGY Hx Hematology/Oncology Disorders: No Comment:: Psoriasis Family Medical History Any Significant Family History?: Yes Hx Alcohol Use: Father, Mother Hx Anxiety: Father Hx Diabetes: Grandparents *Diabetes Comment: Both Grandmothers. Hx Heart Disease: Mother *Heart Comment: Atrial fib Hx HTN: Father Hx Stroke: Brother/Sister *Stroke Comment: sister had a stroke. Physical Exam - General General Appearance: Alert, Oriented x3, Cooperative, No acute distress Limitations: No limitations - Head Head exam: Normal inspection - Eye Eye exam: Normal appearance, PERRL. negative: Conjunctival injection, Periorbital swelling - ENT ENT exam: Normal exam Ear exam: Normal external inspection Nasal Exam: Normal inspection Mouth exam: Normal external inspection Teeth exam: Normal inspection Throat exam: Normal inspection - Neck Neck exam: Normal inspection, Full ROM. negative: Tenderness - Respiratory Respiratory exam: Normal lung sounds bilaterally. negative: Respiratory distress, Rhonchi, Stridor, Wheezes - Cardiovascular Cardiovascular Exam: Irregular rhythm, Tachycardia. negative: Regular rate, Normal rhythm, Diastolic murmur, Systolic murmur - GI/Abdominal GI/Abdominal exam: Soft. negative: Tenderness - Rectal Rectal exam: Deferred - exam: Deferred - Extremities Extremities exam: Normal inspection, Full ROM, Normal capillary refill. negative: Tenderness - Back Back exam: Reports: Normal inspection, Full ROM. Denies: Muscle spasm, Rash noted, Tenderness - Neurological Neurological exam: Alert, Normal gait, Oriented X3 - Psychiatric Psychiatric exam: Normal affect, Normal mood - Skin Skin exam: Dry, Intact, Normal color, Warm Course Vital Signs 11/13/16 15:35 Temperature 98.2 F Pulse Rate 130 H Respiratory 18 Rate Blood Pressure 150/93 Pulse Ox 97 - Reevaluation(s) Reevaluation #1: EKG 15:37 Atrial fibrillation rate of 116, intervals QTc 467, [place] normal, St no acute changes. Prior EKG 11/03/16 AFIB 11/13/16 15:48 Reevaluation #2: The labs were reviewed No acute changes HR 87 but in atrial fibrillation on the monitor 11/13/16 16:44 - Consultations Consultation #1: 18:50 I ALFA Gli Voice There isn't cardiology available tomorrow at [facility] He accepts the patient for transfer to [facility] The patient will be placed on heparin given the persistent AFIB Medical Decision Making - Lab Data Result diagrams: 11/13/16 15:50 11/13/16 15:50 Disposition Disposition: Transfer Clinical Impression: Atrial fibrillation with controlled ventricular response UTI (urinary tract infection) Qualifiers: Urinary tract infection type: acute cystitis Hematuria presence: without hematuria Qualified Code(s): N30.00 - Acute cystitis without hematuria Disposition: Acute Care Hospital Transfer Transfer To: [facility] Reason For Transfer: Afib with [facility] Accepting Physician: Dr Campbell Time Discussed w/Accepting Physician: 18:51 Condition: (2) Stable Forms: Patient Portal Access Time of Disposition: 18:51
[2016-11-13] MEDS ORDERED: DILTIAZEM 25MG/5ML VIAL IV ONE (15:51)
[2016-11-13 16:05] LABS: BASO % 0.2 % (0-6); EOS % 1.7 % (0-6); GRAN % 73.7 % (47-80); HEMATOCRIT 48.8 % (35.0-47.0); HEMOGLOBIN 15.9 gm/dl (11.6-16.0); MEAN CELL VOLUME 92.4 fl (81-97); MEAN CORPUSCULAR HEMOGLOBIN 30.1 pg (27-33); MEAN CORPUSCULAR HGB CONC 32.6 g/dl (32-36); MONO % 8.4 % (0-9); PLATELET COUNT 288 K/uL (130-400); RED BLOOD COUNT 5.28 M/uL (3.80-5.40); RED CELL DISTRIBUTION WIDTH 13.3 % (11.5-14.5); WHITE BLOOD COUNT W/O DIFF 8.1 K/uL (4.2-12.2)
[2016-11-13 16:16] LABS: ALB/GLOB RATIO 1.1 (1.1-1.8); ALBUMIN 4.3 gm/dL (3.5-5.0); ALKALINE PHOSPHATASE 133 U/L (38-126); ALT/SGPT 38 U/L (9-52); ANION GAP 8.9 (7-16); AST/SGOT 26 U/L (14-36); BILIRUBIN,TOTAL 0.55 mg/dL (0.2-1.3); BLOOD UREA NITROGEN 14 mg/dL (7-17); CARBON DIOXIDE 27.1 mmol/L (22-30); CREATINE PHOSPHOKINASE 78 U/L (30-135); CREATININE 0.8 mg/dL (0.52-1.04); EST GLOMERULAR FILTRATION RATE > 60 ml/min; GLUCOSE,RANDOM 109 mg/dL (70-110); INR 0.98; PARTIAL THROMBOPLASTIN TIME 28.5 SECONDS (24.5-39.1); PROTHROMBIN TIME (PATIENT) 11.1 SECONDS (9.5-12.1); TOTAL PROTEIN 8.1 gm/dL (6.3-8.2)
[2016-11-13 16:20] LABS: URINE APPEARANCE CLEAR; URINE COLOR YELLOW; URINE GLUCOSE (UA) NEGATIVE (NEGATIVE)
[2016-11-13 16:21] LABS: URINE BILIRUBIN NEGATIVE (NEGATIVE); URINE BLOOD SMALL (NEGATIVE); URINE KETONE NEGATIVE (NEGATIVE); URINE LEUKOCYTE ESTERASE SMALL (NEGATIVE); URINE NITRITE NEGATIVE (NEGATIVE); URINE PROTEIN NEGATIVE (NEGATIVE); URINE UROBILINOGEN 0.2 E.U./dL (0.20 - 1.00)
[2016-11-13 16:28] LABS: CKMB 0.4 ug/L (0-6)
[2016-11-13 16:35] LABS: TROPONIN I < 0.012 ng/mL (0.00-0.034)
[2016-11-13 16:40] LABS: URINE BACTERIA FEW; URINE RBC 0 - 2 (NONE SEEN); URINE WBC 0 - 2 (0-2/hpf)
[2016-11-13] MEDS ORDERED: DILTIAZEM HCL 125 MG in 0.9 % SODIUM CHLORIDE 100ML 100 ML IV SCH (17:15)
[2016-11-13] MEDS ORDERED: ALPRAZOLAM 0.25 MG TABLET PO ONE (17:52)
[2016-11-13] MEDS ORDERED: HEPARIN SODIUM 1000 UNIT/1 ML 10ML VIAL IVP ONE (18:51)
[2016-11-13] MEDS ORDERED: CEPHALEXIN 500 MG CAPSULE PO STA (18:53)
[2016-11-13] MEDS ORDERED: HEPARIN SODIUM/D5W 25,000 UNITS in DEXTROSE 5 % IN WATER 1 BAG IV SCH ×2 (19:00)
== END 2016-11-13 19:49 | disposition short-term general hospital (02) ==
LOC: ER 15:29
DX: I48.91 Unspecified atrial fibrillation (principal); N30.00 Acute cystitis without hematuria; I10 Essential (primary) hypertension; F17.210 Nicotine dependence, cigarettes, uncomplicated
CPT/HCPCS: 80053; 81001; 82550; 82553; 83880; 84484; 85025; 85610; 85730; 93005; 93010; 96365; 96366; 96375; 99285

== ENCOUNTER 2016-11-21 10:27 | Emergency (ER) | payer BC ==
[2016-11-21] MEDS ORDERED: 0.9 % SODIUM CHLORIDE 1000ML 1,000 ML IV PRN (10:40)
[2016-11-21] MEDS ORDERED: ASPIRIN 81 MG CHEWABLE TABLET PO ONE (10:40)
--- NOTE | 2016-11-21 10:43 | Emergency Department Record ---
History of Present Illness - General Chief Complaint: Syncope Stated Complaint: FEELING FAINT Time Seen by Provider: 11/21/16 10:30 Source: Patient, RN notes reviewed - History of Present Illness Initial Comments: patient wake up and dizzy and concerned about her heart she was recently at [facility] and put back into atrial fib and her gun number is Dr. Caldwell. She is wearing a heart monitor and she is on xarelto and going in and out of atrial fib in the past couple of weeks currently in normal sinus rhythm. No chest pain. history of sleep apnea and on c pap. - Related Data Home Medications Medication Instructions Recorded Confirmed Last Taken Esomeprazole Magnesium [Nexium 22.3 mg PO DAILY PRN 03/18/15 11/21/16 10/05/16 24Hr] Buspirone HCl [Buspar] 5 mg PO DAILY 11/21/16 11/21/16 11/21/16 Diltiazem HCl [Diltiazem ER] 240 mg PO DAILY 11/21/16 11/21/16 11/21/16 Dronedarone HCl [Multaq] 400 mg PO DAILY 11/21/16 11/21/16 11/21/16 Rivaroxaban [Xarelto] 20 mg PO DAILY 11/21/16 11/21/16 11/21/16 Allergies Allergy/AdvReac Type Severity Reaction Status Date / Time ciprofloxacin [From Cipro] Allergy Mild LIP Verified 10/05/16 23:24 NUMBNESS ciprofloxacin HCl Allergy Mild LIP Verified 10/05/16 23:24 [From Cipro] NUMBNESS erythromycin base Allergy Unknown VOMITING Verified 10/05/16 23:24 [ERYTHROMYCIN BASE] meperidine [MEPERIDINE] Allergy Unknown ALTERED Verified 10/05/16 23:24 MENTAL STATUS Sulfa (Sulfonamide Allergy Unknown RASH Verified 10/05/16 23:24 Antibiotics) [SULFA (SULFONAMIDE ANTIBIOTICS)] meperidine HCl [From Demerol] AdvReac HYPERSENSIT Verified 10/05/16 23:24 IVITY Review of Systems Reviewed: No additional complaints except as noted below Constitutional: Reports: As per HPI. Denies: Chills, Fever, Malaise, Night sweats, Weakness, Weight change Eyes: Reports: As per HPI. Denies: Eye discharge, Eye pain, Photophobia, Vision change ENT: Reports: As per HPI. Denies: Congestion, Dental pain, Ear pain, Epistaxis , Hearing loss, Throat pain Respiratory: Reports: As per HPI, Cough, Dyspnea. Denies: Hemoptysis, Stridor, Wheezes Cardiovascular: Reports: As per HPI. Denies: Arrhythmia, Chest pain, Dyspnea on exertion, Edema, Murmurs, Orthopnea, Palpitations, Paroxysmal nocturnal dyspnea, Rheumatic Fever, Syncope Endocrine: Reports: As per HPI. Denies: Fatigue, Heat or cold intolerance, Polydipsia, Polyuria Gastrointestinal: Reports: As per HPI. Denies: Abdominal pain, Constipation, Diarrhea, Hematemesis, Hematochezia, Melena, Nausea, Vomiting Genitourinary: Reports: As per HPI. Denies: Abnormal menses, Discharge, Dyspareunia, Dysuria, Frequency, Hematuria, Incontinence, Retention, Urgency Musculoskeletal: Reports: As per HPI. Denies: Arthralgia, Back pain, Gout, Joint swelling, Myalgia, Neck pain Skin: Reports: As per HPI. Denies: Bruising, Change in color, Change in hair/ nails, Lesions, Pruritus, Rash Neurological: Reports: As per HPI. Denies: Abnormal gait, Confusion, Headache, Numbness, Paresthesias, Seizure, Tingling, Tremors, Vertigo, Weakness Psychiatric: Reports: As per HPI. Denies: Anxiety, Auditory hallucinations, Depression, Homicidal thoughts, Suicidal thoughts, Visual hallucinations Hematological/Lymphatic: Reports: As per HPI. Denies: Anemia, Blood Clots, Easy bleeding, Easy bruising, Swollen glands Past Medical History - SOCIAL HISTORY Smoking Status: Former smoker Alcohol Use: None Drug Use: None - RESPIRATORY Hx Respiratory Disorders: Yes Hx Sleep Apnea: Yes Hx of CPAP: No - CARDIOVASCULAR Hx Cardio Disorders: Yes Hx Abnormal EKG: Yes Hx Cardiac Cath: No Hx Chest Pain: No Hx CHF: No Hx Deep Vein Thrombosis: No Hx Edema: No Hx Heart Attack: No Hx Hypertension: Yes Hx Hypotension: No Hx Irregular Heartbeat: Yes (A-Fib) Hx Palpitations: Yes Hx Pacemaker/Defib: No Hx Vascular Disease: No - NEURO Hx Neuro Disorders: No - GI Hx GI Disorders: Yes Hx Reflux: Yes Hx Ulcer: Yes Hx of Polyps: Yes Comment:: hx of constipation - Hx Genitourinary Disorders: Yes Hx Bladder Problem: Yes (bladder spasms) Comment:: n/a - ENDOCRINE Hx Endocrine Disorders: No Hx Diabetes: No Hx Thyroid Disease: No - MUSCULOSKELETAL Hx Musculoskeletal Disorders: Yes Hx Arthritis: No Hx Back Injury: No Hx Fibromyalgia: No Hx Gout: No Hx Musculoskeletal Disease: No Hx Osteoporosis: No - PSYCH Hx Psych Problems: Yes Hx Anxiety: Yes Hx Behavior Problems: No Hx Depression: Yes Hx Emotional Abuse: No Hx Sexual Abuse: No Hx Suicide Attempt: No - HEMATOLOGY/ONCOLOGY Hx Hematology/Oncology Disorders: No Comment:: Psoriasis Family Medical History Any Significant Family History?: Yes Hx Alcohol Use: Father, Mother Hx Anxiety: Father Hx Diabetes: Grandparents *Diabetes Comment: Both Grandmothers. Hx Heart Disease: Mother *Heart Comment: Atrial fib Hx HTN: Father Hx Stroke: Brother/Sister *Stroke Comment: sister had a stroke. Physical Exam - General General Appearance: Alert, Oriented x3, Cooperative, No acute distress - Head Head exam: Normal inspection - Eye Eye exam: Normal appearance, PERRL Pupils: Normal accommodation - ENT ENT exam: Normal exam, Mucous membranes moist, Normal external ear exam, Normal orophraynx, TM's normal bilaterally Ear exam: Normal external inspection. negative: External canal tenderness Nasal Exam: Normal inspection. negative: Discharge, Sinus tenderness Mouth exam: Normal external inspection, Tongue normal Teeth exam: Normal inspection. negative: Dental caries Throat exam: Normal inspection. negative: Tonsillar erythema, Tonsillar exudate - Neck Neck exam: Normal inspection, Full ROM. negative: Tenderness - Respiratory Respiratory exam: Normal lung sounds bilaterally. negative: Respiratory distress - Cardiovascular Cardiovascular Exam: Regular rate, Normal rhythm, Normal heart sounds - GI/Abdominal GI/Abdominal exam: Soft, Normal bowel sounds. negative: Tenderness - Rectal Rectal exam: Deferred - exam: Deferred - Extremities Extremities exam: Normal inspection, Full ROM, Normal capillary refill. negative: Tenderness - Back Back exam: Reports: Normal inspection, Full ROM. Denies: Muscle spasm, Rash noted, Tenderness - Neurological Neurological exam: Alert, Normal gait, Oriented X3, Reflexes normal - Psychiatric Psychiatric exam: Normal affect, Normal mood - Skin Skin exam: Dry, Intact, Normal color, Warm Course - Reevaluation(s) Reevaluation #1: patient refused her chest xay 11/21/16 13:13 Medical Decision Making - Data Complexity MDM Data: Labs Ordered and/or Reviewed, X-Ray Ordered and/or Reviewed ( atelectasis left lower lobe), EKG Ordered and/or Reviewed (no acute changes and nSR) - Lab Data Result diagrams: 11/21/16 10:40 11/21/16 10:40 Disposition Forms: Patient Portal Access
[2016-11-21 10:50] LABS: BASO % 0.3 % (0-6); EOS % 0.3 % (0-6); GRAN % 59.7 % (47-80); HEMOGLOBIN 14.2 gm/dl (11.6-16.0); LYMPH % 32.6 % (16-45); MEAN CELL VOLUME 91.6 fl (81-97); MEAN CORPUSCULAR HEMOGLOBIN 28.9 pg (27-33); MEAN CORPUSCULAR HGB CONC 31.6 g/dl (32-36); MEAN PLATELET VOLUME 9.4 fl (7.4-10.4); MONO % 7.1 % (0-9); PLATELET COUNT 215 K/uL (130-400); RED BLOOD COUNT 4.91 M/uL (3.80-5.40); RED CELL DISTRIBUTION WIDTH 13.3 % (11.5-14.5); WHITE BLOOD COUNT W/O DIFF 3.8 K/uL (4.2-12.2)
[2016-11-21 11:02] LABS: ANION GAP 8.7 (7-16); BLOOD UREA NITROGEN 10 mg/dL (7-17); CARBON DIOXIDE 24.3 mmol/L (22-30); CREATININE 0.7 mg/dL (0.52-1.04); EST GLOMERULAR FILTRATION RATE > 60 ml/min; GLUCOSE,RANDOM 131 mg/dL (70-110)
[2016-11-21 11:04] LABS: INR 1.27; PARTIAL THROMBOPLASTIN TIME 36.2 SECONDS (24.5-39.1); PROTHROMBIN TIME (PATIENT) 14.3 SECONDS (9.5-12.1)
[2016-11-21 11:08] LABS: D-DIMER 0.42 mg/L FEU (0-0.59)
[2016-11-21 11:14] LABS: CKMB 0.4 ug/L (0-6)
[2016-11-21 11:18] LABS: TROPONIN I < 0.012 ng/mL (0.00-0.034)
--- NOTE | 2016-11-21 14:04 | Emergency Department Record ---
History of Present Illness - General Chief Complaint: Syncope Stated Complaint: FEELING FAINT Time Seen by Provider: 11/21/16 10:30 Source: Patient, RN notes reviewed Mode of Arrival: Wheelchair - History of Present Illness Initial Comments: Patient was told at [facility] she has influenze B at [facility]. patient just finished keflex for a UTI through [facility] -: Awoke with symptoms Prodromal Symptoms: Lightheaded Current Symptoms: Lightheaded, Nausea Context: At rest Treatments Prior to Arrival: None - Mame Coma Scale Eye Response: (4) Open spontaneously Motor Response: (6) Obeys commands Verbal Response: (5) Oriented [place] Total: 15 - Related Data Home Medications Medication Instructions Recorded Confirmed Last Taken Esomeprazole Magnesium [Nexium 22.3 mg PO DAILY PRN 03/18/15 11/21/16 10/05/16 24Hr] Buspirone HCl [Buspar] 5 mg PO DAILY 11/21/16 11/21/16 11/21/16 Diltiazem HCl [Diltiazem ER] 240 mg PO DAILY 11/21/16 11/21/16 11/21/16 Dronedarone HCl [Multaq] 400 mg PO DAILY 11/21/16 11/21/16 11/21/16 Rivaroxaban [Xarelto] 20 mg PO DAILY 11/21/16 11/21/16 11/21/16 Previous Rx's Medication Instructions Recorded Azithromycin 250 mg PO DAILY #6 tablet 11/21/16 Allergies Allergy/AdvReac Type Severity Reaction Status Date / Time ciprofloxacin [From Cipro] Allergy Mild LIP Verified 10/05/16 23:24 NUMBNESS ciprofloxacin HCl Allergy Mild LIP Verified 10/05/16 23:24 [From Cipro] NUMBNESS erythromycin base Allergy Unknown VOMITING Verified 10/05/16 23:24 [ERYTHROMYCIN BASE] meperidine [MEPERIDINE] Allergy Unknown ALTERED Verified 10/05/16 23:24 MENTAL STATUS Sulfa (Sulfonamide Allergy Unknown RASH Verified 10/05/16 23:24 Antibiotics) [SULFA (SULFONAMIDE ANTIBIOTICS)] meperidine HCl [From Demerol] AdvReac HYPERSENSIT Verified 10/05/16 23:24 IVITY Travel Screening - Travel/Exposure Within Last 30 Days Have you traveled within the last 30 days?: No - Travel/Exposure Within Last Year Have you traveled outside the [place] in the last year?: No - Additonal Travel Details Have you been exposed to anyone with a communicable illness?: No - Travel Symptoms Symptom Screening: None Review of Systems Constitutional: Reports: As per HPI. Denies: Chills, Fever, Malaise, Night sweats, Weakness, Weight change Eyes: Reports: As per HPI. Denies: Eye discharge, Eye pain, Photophobia, Vision change ENT: Reports: As per HPI. Denies: Congestion, Dental pain, Ear pain, Epistaxis , Hearing loss, Throat pain Respiratory: Reports: As per HPI, Cough, Dyspnea. Denies: Hemoptysis, Stridor, Wheezes Cardiovascular: Reports: As per HPI. Denies: Arrhythmia, Chest pain, Dyspnea on exertion, Edema, Murmurs, Orthopnea, Palpitations, Paroxysmal nocturnal dyspnea, Rheumatic Fever, Syncope Endocrine: Reports: As per HPI. Denies: Fatigue, Heat or cold intolerance, Polydipsia, Polyuria Gastrointestinal: Reports: As per HPI. Denies: Abdominal pain, Constipation, Diarrhea, Hematemesis, Hematochezia, Melena, Nausea, Vomiting Genitourinary: Reports: As per HPI. Denies: Abnormal menses, Discharge, Dyspareunia, Dysuria, Frequency, Hematuria, Incontinence, Retention, Urgency Musculoskeletal: Reports: As per HPI. Denies: Arthralgia, Back pain, Gout, Joint swelling, Myalgia, Neck pain Skin: Reports: As per HPI. Denies: Bruising, Change in color, Change in hair/ nails, Lesions, Pruritus, Rash Neurological: Reports: As per HPI. Denies: Abnormal gait, Confusion, Headache, Numbness, Paresthesias, Seizure, Tingling, Tremors, Vertigo, Weakness Psychiatric: Reports: As per HPI. Denies: Anxiety, Auditory hallucinations, Depression, Homicidal thoughts, Suicidal thoughts, Visual hallucinations Hematological/Lymphatic: Reports: As per HPI. Denies: Anemia, Blood Clots, Easy bleeding, Easy bruising, Swollen glands Past Medical History - SOCIAL HISTORY Smoking Status: Former smoker Alcohol Use: None Drug Use: None - RESPIRATORY Hx Respiratory Disorders: Yes Hx Sleep Apnea: Yes Hx of CPAP: No - CARDIOVASCULAR Hx Cardio Disorders: Yes Hx Abnormal EKG: Yes Hx Cardiac Cath: No Hx Chest Pain: No Hx CHF: No Hx Deep Vein Thrombosis: No Hx Edema: No Hx Heart Attack: No Hx Hypertension: Yes Hx Hypotension: No Hx Irregular Heartbeat: Yes (A-Fib) Hx Palpitations: Yes Hx Pacemaker/Defib: No Hx Vascular Disease: No - NEURO Hx Neuro Disorders: No - GI Hx GI Disorders: Yes Hx Reflux: Yes Hx Ulcer: Yes Hx of Polyps: Yes Comment:: hx of constipation - Hx Genitourinary Disorders: Yes Hx Bladder Problem: Yes (bladder spasms) Comment:: n/a - ENDOCRINE Hx Endocrine Disorders: No Hx Diabetes: No Hx Thyroid Disease: No - MUSCULOSKELETAL Hx Musculoskeletal Disorders: Yes Hx Arthritis: No Hx Back Injury: No Hx Fibromyalgia: No Hx Gout: No Hx Musculoskeletal Disease: No Hx Osteoporosis: No - PSYCH Hx Psych Problems: Yes Hx Anxiety: Yes Hx Behavior Problems: No Hx Depression: Yes Hx Emotional Abuse: No Hx Sexual Abuse: No Hx Suicide Attempt: No - HEMATOLOGY/ONCOLOGY Hx Hematology/Oncology Disorders: No Comment:: Psoriasis Family Medical History Any Significant Family History?: Yes Hx Alcohol Use: Father, Mother Hx Anxiety: Father Hx Diabetes: Grandparents *Diabetes Comment: Both Grandmothers. Hx Heart Disease: Mother *Heart Comment: Atrial fib Hx HTN: Father Hx Stroke: Brother/Sister *Stroke Comment: sister had a stroke. Physical Exam - General General Appearance: Alert, Oriented x3, Cooperative, No acute distress - Head Head exam: Normal inspection - Eye Eye exam: Normal appearance, PERRL Pupils: Normal accommodation - ENT ENT exam: Normal exam, Mucous membranes moist, Normal external ear exam, Normal orophraynx, TM's normal bilaterally Ear exam: Normal external inspection. negative: External canal tenderness Nasal Exam: Normal inspection. negative: Discharge, Sinus tenderness Mouth exam: Normal external inspection, Tongue normal Teeth exam: Normal inspection. negative: Dental caries Throat exam: Normal inspection. negative: Tonsillar erythema, Tonsillar exudate - Neck Neck exam: Normal inspection, Full ROM. negative: Tenderness - Respiratory Respiratory exam: Normal lung sounds bilaterally. negative: Respiratory distress - Cardiovascular Cardiovascular Exam: Regular rate, Normal rhythm, Normal heart sounds - GI/Abdominal GI/Abdominal exam: Soft, Normal bowel sounds. negative: Tenderness - Rectal Rectal exam: Deferred - exam: Deferred - Extremities Extremities exam: Normal inspection, Full ROM, Normal capillary refill. negative: Tenderness - Back Back exam: Reports: Normal inspection, Full ROM. 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 ] Respiratory 146 H 22 Rate Blood Pressure 148/96 Blood Pressure 139/84 [Left Arm] Pulse Ox 93 L 96 Medical Decision Making - Lab Data Result diagrams: 11/21/16 10:40 11/21/16 10:40 Lab Results 11/21/16 11/21/16 11/21/16 Range/Units 10:40 10:40 10:40 WBC 3.8 L (4.2-12.2) K/uL RBC 4.91 (3.80-5.40) M/uL Hgb 14.2 (11.6-16.0) gm/dl Hct 45.0 (35.0-47.0) % MCV 91.6 (81-97) fl MCH 28.9 (27-33) pg MCHC 31.6 L (32-36) g/dl RDW 13.3 (11.5-14.5) % Plt Count 215 (130-400) K/uL MPV 9.4 (7.4-10.4) fl Gran % 59.7 (47-80) % Lymphocytes % 32.6 (16-45) % Monocytes % 7.1 (0-9) % Eosinophils % 0.3 (0-6) % Basophils % 0.3 (0-6) % PT 14.3 H (9.5-12.1) SECONDS INR 1.27 APTT 36.20 (24.5-39.1) SECONDS D-Dimer 0.42 (0-0.59) mg/L FEU Sodium 140 (136-145) mmol/L Potassium 4.0 (3.5-5.1) mmol/L Chloride 107 (98-107) mmol/L Carbon Dioxide 24.3 (22-30) mmol/L Anion Gap 8.7 (7-16) BUN 10 (7-17) mg/dL Creatinine 0.7 (0.52-1.04) mg/dL Estimated GFR > 60 ml/min Random Glucose 131 H (70-110) mg/dL Calcium 9.1 (8.5-10.1) mg/dL CK-MB (CK-2) 0.4 (0-6) ug/L Troponin I < 0.012 (0.00-0.034) ng/mL Disposition Clinical Impression: Dizziness, Influenza B Pneumonia Qualifiers: Pneumonia type: due to unspecified organism Laterality: left Lung location: lower lobe of lung Qualified Code(s): J18.1 - Lobar pneumonia, unspecified organism Disposition: Home, Self-Care Condition: (1) Good Instructions: Dizziness (ED), Influenza (ED), Pneumonia, Corn Chip Maker (GEN) Additional Instructions: follow up with family in 2 days Prescriptions: Azithromycin 250 mg PO DAILY #6 tablet Forms: Patient Portal Access Time of Disposition: 14:12
== END 2016-11-21 14:30 | disposition home or self-care (01) ==
LOC: ER 10:27
DX: J10.08 Influenza due to other identified influenza virus with other specified pneumonia (principal); R42 Dizziness and giddiness; Z87.891 Personal history of nicotine dependence; I48.91 Unspecified atrial fibrillation; Z79.01 Long term (current) use of anticoagulants
CPT/HCPCS: 71020; 80048; 82553; 84484; 85025; 85379; 85610; 85730; 93005; 93010; 99284

== ENCOUNTER 2016-11-29 21:56 | Emergency (ER) | payer BC ==
[2016-11-29 22:21] LABS: HEMATOCRIT 46.5 % (35.0-47.0); HEMOGLOBIN 14.8 gm/dl (11.6-16.0); MEAN CELL VOLUME 92.4 fl (81-97); MEAN CORPUSCULAR HEMOGLOBIN 29.4 pg (27-33); MEAN CORPUSCULAR HGB CONC 31.8 g/dl (32-36); MEAN PLATELET VOLUME 9.4 fl (7.4-10.4); PLATELET COUNT 294 K/uL (130-400); RED BLOOD COUNT 5.03 M/uL (3.80-5.40); RED CELL DISTRIBUTION WIDTH 13.3 % (11.5-14.5); WHITE BLOOD COUNT W/O DIFF 10.6 K/uL (4.2-12.2)
--- NOTE | 2016-11-29 22:23 | Emergency Department Record ---
History of Present Illness - General Chief Complaint: Chest Pain Stated Complaint: CHEST PRESSURE, COUGH,CONGESTION Time Seen by Provider: 11/29/16 22:12 Source: Patient, Family Mode of Arrival: Ambulatory Limitations: No limitations - History of Present Illness Initial Comments: 56 yo presents with one hour of anxiety with a pressure feeling in the chest. She was at rest with the onset. She has been dealing recently with atrial fibrillation and transferred to [facility]. She is wearing an event monitor. No cough. No shortness of breath. The discomfort is a pressure with an anxious feeling. She has very frequent episodes of anxiety. Cardiology is [facility] at [facility]. She has had a recent normal nuclear stress test. She is on Xarelto and reports starting a new medication at [facility]. She has been getting over influenza B that she got at [facility]. She still has some cough. Complaint: Chest pain Onset/Timin -: Hour(s) Onset: During rest Pain Location: Substernal Pain Radiation: None Severity scale (1-10): 6 Quality: Other Consistency: Constant Improves With: Medication-other Worsens With: Other Context: New medications - Related Data Home Medications Medication Instructions Recorded Confirmed Last Taken Esomeprazole Magnesium [Nexium 22.3 mg PO DAILY PRN 03/18/15 11/29/16 10/05/16 24Hr] Diltiazem HCl [Diltiazem ER] 240 mg PO DAILY 11/21/16 11/29/16 11/29/16 Dronedarone HCl [Multaq] 400 mg PO BID 11/21/16 11/29/16 11/29/16 Aspirin [Aspir-Low] 81 mg PO DAILY 11/29/16 11/29/16 11/29/16 Allergies Allergy/AdvReac Type Severity Reaction Status Date / Time ciprofloxacin [From Cipro] Allergy Mild LIP Verified 10/05/16 23:24 NUMBNESS ciprofloxacin HCl Allergy Mild LIP Verified 10/05/16 23:24 [From Cipro] NUMBNESS erythromycin base Allergy Unknown VOMITING Verified 10/05/16 23:24 [ERYTHROMYCIN BASE] meperidine [MEPERIDINE] Allergy Unknown ALTERED Verified 10/05/16 23:24 MENTAL STATUS Sulfa (Sulfonamide Allergy Unknown RASH Verified 10/05/16 23:24 Antibiotics) [SULFA (SULFONAMIDE ANTIBIOTICS)] meperidine HCl [From Demerol] AdvReac HYPERSENSIT Verified 10/05/16 23:24 IVITY Travel Screening - Travel/Exposure Within Last 30 Days Have you traveled within the last 30 days?: No - Travel Symptoms Symptom Screening: None Review of Systems Constitutional: Denies: Chills, Fever, Malaise, Weakness Eyes: Denies: Eye discharge, Eye pain, Photophobia, Vision change ENT: Denies: Congestion, Throat pain Respiratory: Reports: Cough (recent influenza B). Denies: Dyspnea, Hemoptysis, Stridor, Wheezes Cardiovascular: Reports: Arrhythmia, Chest pain, Palpitations. Denies: Edema, Syncope Endocrine: Denies: Fatigue, Polydipsia, Polyuria Gastrointestinal: Denies: Abdominal pain, Constipation, Diarrhea, Nausea, Vomiting Genitourinary: Denies: Dysuria, Urgency Musculoskeletal: Denies: Arthralgia, Back pain, Myalgia, Neck pain Skin: Denies: Bruising, Change in color Neurological: Denies: Abnormal gait, Confusion, Headache, Numbness, Tingling, Vertigo, Weakness Psychiatric: Reports: Anxiety Hematological/Lymphatic: Denies: Blood Clots, Easy bleeding, Easy bruising, Swollen glands Past Medical History - SOCIAL HISTORY Smoking Status: Former smoker - RESPIRATORY Hx Respiratory Disorders: Yes Hx Sleep Apnea: Yes Hx of CPAP: No - CARDIOVASCULAR Hx Cardio Disorders: Yes Hx Abnormal EKG: Yes Hx Cardiac Cath: No Hx Chest Pain: No Hx CHF: No Hx Deep Vein Thrombosis: No Hx Edema: No Hx Heart Attack: No Hx Hypertension: Yes Hx Hypotension: No Hx Irregular Heartbeat: Yes (A-Fib) Hx Palpitations: Yes Hx Pacemaker/Defib: No Hx Vascular Disease: No - NEURO Hx Neuro Disorders: No - GI Hx GI Disorders: Yes Hx Reflux: Yes Hx Ulcer: Yes Hx of Polyps: Yes Comment:: hx of constipation - Hx Genitourinary Disorders: Yes Hx Bladder Problem: Yes (bladder spasms) Comment:: n/a - ENDOCRINE Hx Endocrine Disorders: No Hx Diabetes: No Hx Thyroid Disease: No - MUSCULOSKELETAL Hx Musculoskeletal Disorders: Yes Hx Arthritis: No Hx Back Injury: No Hx Fibromyalgia: No Hx Gout: No Hx Musculoskeletal Disease: No Hx Osteoporosis: No - PSYCH Hx Psych Problems: Yes Hx Anxiety: Yes Hx Behavior Problems: No Hx Depression: Yes Hx Emotional Abuse: No Hx Sexual Abuse: No Hx Suicide Attempt: No - HEMATOLOGY/ONCOLOGY Hx Hematology/Oncology Disorders: No Comment:: Psoriasis Family Medical History Any Significant Family History?: Yes Hx Alcohol Use: Father, Mother Hx Anxiety: Father Hx Diabetes: Grandparents *Diabetes Comment: Both Grandmothers. Hx Heart Disease: Mother *Heart Comment: Atrial fib Hx HTN: Father Hx Stroke: Brother/Sister *Stroke Comment: sister had a stroke. Physical Exam - General General Appearance: Alert, Oriented x3, Cooperative, No acute distress Limitations: No limitations - Head Head exam: Atraumatic, Normocephalic, Normal inspection - Eye Eye exam: Normal appearance, PERRL. negative: Conjunctival injection, Periorbital swelling - ENT ENT exam: Normal exam, Mucous membranes moist Ear exam: Normal external inspection Nasal Exam: Normal inspection Mouth exam: Normal external inspection Teeth exam: Normal inspection Throat exam: Normal inspection - Neck Neck exam: Normal inspection, Full ROM. negative: Lymphadenopathy, Tenderness - Respiratory Respiratory exam: Normal lung sounds bilaterally. negative: Decreased breath sounds, Prolonged expiratory, Respiratory distress - Cardiovascular Cardiovascular Exam: Regular rate, Normal rhythm, Normal heart sounds Peripheral Pulses: 2+: Radial (R), Radial (L) - GI/Abdominal GI/Abdominal exam: Soft. negative: Tenderness - Rectal Rectal exam: Deferred - exam: Deferred - Extremities Extremities exam: Normal inspection, Full ROM, Normal capillary refill. negative: Tenderness - Back Back exam: Reports: Normal inspection, Full ROM. Denies: CVA tenderness (R), CVA tenderness (L), Muscle spasm, Rash noted, Tenderness - Neurological Neurological exam: Alert, CN II-XII intact, Normal gait, Oriented X3. negative : Altered, Motor sensory deficit - Psychiatric Psychiatric exam: Anxious - Skin Skin exam: Dry, Intact, Normal color, Warm. negative: Cyanosis, Diaphoretic, Erythema, Mottled, Pallor Course Vital Signs 11/29/16 22:07 Temperature 98.2 F Pulse Rate 88 Respiratory 20 Rate Blood Pressure 163/95 Pulse Ox 97 - Reevaluation(s) Reevaluation #1: EKG 11/29/16 22:14 NSR, rate 78, intervals normal, axis normal, ST no acute changes, artifact (patient is anxious and shakes) 11/29/16 22:26 Reevaluation #2: [facility] records reviewed Admit 11/13 to 11/16/16 DC DX: Atrial fibrillation, influenza B, anxiety, Normal Nuclear Scan 09/2016 She was started on Multaq and Xarelta for a CHADSVASC score of 2. Normal stress test with normal perfusion 09/2016 ECHO EF 55-60% 11/29/16 22:46 Initial CBC,CMP,Troponin are negative in the ED On the monitor she remains in NSR. 11/29/16 22:52 Reevaluation #3: Repeat Troponin is negative DC home with follow up referral with Dr Montemayor. 11/30/16 01:30 Medical Decision Making - Lab Data Result diagrams: 11/29/16 22:18 11/29/16 22:18 Disposition Disposition: Discharge Clinical Impression: Chest Pain at Rest, Anxiety Condition: (1) Good Instructions: Chest Pain (ED) Additional Instructions: Call Dr Montemayor this morning for close follow up Return to the ED if you have any return of your symptoms or concerns Continue your current medications Call your family doctor to discuss your anxiety as well. Forms: Patient Portal Access Time of Disposition: 01:30
[2016-11-29] MEDS ORDERED: ALPRAZOLAM 0.25 MG TABLET PO ONE (22:24)
[2016-11-29 22:31] LABS: ALB/GLOB RATIO 1.2 (1.1-1.8); ALBUMIN 4.3 gm/dL (3.5-5.0); ALKALINE PHOSPHATASE 115 U/L (38-126); ALT/SGPT 42 U/L (9-52); ANION GAP 10.9 (7-16); AST/SGOT 25 U/L (14-36); BLOOD UREA NITROGEN 19 mg/dL (7-17); CARBON DIOXIDE 25.1 mmol/L (22-30); CREATINE PHOSPHOKINASE 71 U/L (30-135); CREATININE 0.7 mg/dL (0.52-1.04); EST GLOMERULAR FILTRATION RATE > 60 ml/min; GLUCOSE,RANDOM 132 mg/dL (70-110)
[2016-11-29 22:33] LABS: INR 1.01; PARTIAL THROMBOPLASTIN TIME 27.9 SECONDS (24.5-39.1); PROTHROMBIN TIME (PATIENT) 11.4 SECONDS (9.5-12.1)
[2016-11-29] MEDS ORDERED: LORAZEPAM 0.5 MG TABLET PO ONE (22:38)
[2016-11-29 22:43] LABS: CKMB 0.5 ug/L (0-6); TROPONIN I < 0.012 ng/mL (0.00-0.034)
[2016-11-30] MEDS ORDERED: LORAZEPAM 0.5 MG TABLET PO ONE (01:59)
== END 2016-11-30 02:08 | disposition home or self-care (01) ==
LOC: ER 21:56
DX: R07.89 Other chest pain (principal); M25.511 Pain in right shoulder; F41.9 Anxiety disorder, unspecified; R05 Cough; I10 Essential (primary) hypertension; I48.91 Unspecified atrial fibrillation; Z87.891 Personal history of nicotine dependence
CPT/HCPCS: 71020; 80053; 82550; 82553; 84484; 85027; 85610; 85730; 99284

== ENCOUNTER 2016-12-25 11:54 | Emergency (ER) | payer BC ==
[2016-12-25] MEDS ORDERED: ASPIRIN 81 MG CHEWABLE TABLET PO ONE (12:17)
[2016-12-25] MEDS ORDERED: NITROGLYCERIN 0.4MG SL TABLET #25 BTL SL PRN (12:17)
--- NOTE | 2016-12-25 12:33 | Emergency Department Record ---
History of Present Illness - General Chief Complaint: Arrythmia/Palpitations Stated Complaint: HEART ISSUES Time Seen by Provider: 12/25/16 11:56 Source: Patient Mode of Arrival: Ambulatory Limitations: No limitations - History of Present Illness Initial Comments: [id number] felt that she went into afib this am. she also developed chest pressure MD Complaint: Atrial fibrillation Onset/Timin -: Hour(s) Context: Change in medication Arrythmia History: Atrial fibrillation Associated Symptoms: Chest pain Treatments Prior to Arrival: Calcium channel katya - Related Data Home Medications Medication Instructions Recorded Confirmed Last Taken Esomeprazole Magnesium [Nexium 22.3 mg PO DAILY PRN 03/18/15 12/25/16 10/05/16 24Hr] Diltiazem HCl [Diltiazem ER] 240 mg PO DAILY 11/21/16 12/25/16 11/29/16 Dronedarone HCl [Multaq] 400 mg PO BID 11/21/16 12/25/16 11/29/16 Aspirin [Aspir-Low] 81 mg PO DAILY 11/29/16 12/25/16 11/29/16 Allergies Allergy/AdvReac Type Severity Reaction Status Date / Time ciprofloxacin [From Cipro] Allergy Mild LIP Verified 10/05/16 23:24 NUMBNESS ciprofloxacin HCl Allergy Mild LIP Verified 10/05/16 23:24 [From Cipro] NUMBNESS erythromycin base Allergy Unknown VOMITING Verified 10/05/16 23:24 [ERYTHROMYCIN BASE] meperidine [MEPERIDINE] Allergy Unknown ALTERED Verified 10/05/16 23:24 MENTAL STATUS Sulfa (Sulfonamide Allergy Unknown RASH Verified 10/05/16 23:24 Antibiotics) [SULFA (SULFONAMIDE ANTIBIOTICS)] meperidine HCl [From Demerol] AdvReac HYPERSENSIT Verified 10/05/16 23:24 IVITY Travel Screening - Travel/Exposure Within Last 30 Days Have you traveled within the last 30 days?: No Review of Systems Reviewed: No additional complaints except as noted below Constitutional: Reports: As per HPI. Denies: Chills, Fever, Malaise, Night sweats, Weakness, Weight change Eyes: Reports: As per HPI. Denies: Eye discharge, Eye pain, Photophobia, Vision change ENT: Reports: As per HPI. Denies: Congestion, Dental pain, Ear pain, Epistaxis , Hearing loss, Throat pain Respiratory: Reports: As per HPI. Denies: Cough, Dyspnea, Hemoptysis, Stridor, Wheezes Cardiovascular: Reports: As per HPI. Denies: Arrhythmia, Chest pain, Dyspnea on exertion, Edema, Murmurs, Orthopnea, Palpitations, Paroxysmal nocturnal dyspnea, Rheumatic Fever, Syncope Endocrine: Reports: As per HPI. Denies: Fatigue, Heat or cold intolerance, Polydipsia, Polyuria Gastrointestinal: Reports: As per HPI. Denies: Abdominal pain, Constipation, Diarrhea, Hematemesis, Hematochezia, Melena, Nausea, Vomiting Genitourinary: Reports: As per HPI. Denies: Abnormal menses, Discharge, Dyspareunia, Dysuria, Frequency, Hematuria, Incontinence, Retention, Urgency Musculoskeletal: Reports: As per HPI. Denies: Arthralgia, Back pain, Gout, Joint swelling, Myalgia, Neck pain Skin: Reports: As per HPI. Denies: Bruising, Change in color, Change in hair/ nails, Lesions, Pruritus, Rash Neurological: Reports: As per HPI. Denies: Abnormal gait, Confusion, Headache, Numbness, Paresthesias, Seizure, Tingling, Tremors, Vertigo, Weakness Psychiatric: Reports: As per HPI. Denies: Anxiety, Auditory hallucinations, Depression, Homicidal thoughts, Suicidal thoughts, Visual hallucinations Hematological/Lymphatic: Reports: As per HPI. Denies: Anemia, Blood Clots, Easy bleeding, Easy bruising, Swollen glands Past Medical History - SOCIAL HISTORY Smoking Status: Former smoker Alcohol Use: None Drug Use: None - RESPIRATORY Hx Respiratory Disorders: Yes Hx Sleep Apnea: Yes Hx of CPAP: No - CARDIOVASCULAR Hx Cardio Disorders: Yes Hx Abnormal EKG: Yes Hx Cardiac Cath: No Hx Chest Pain: No Hx CHF: No Hx Deep Vein Thrombosis: No Hx Edema: No Hx Heart Attack: No Hx Hypertension: Yes Hx Hypotension: No Hx Irregular Heartbeat: Yes (A-Fib) Hx Palpitations: Yes Hx Pacemaker/Defib: No Hx Vascular Disease: No - NEURO Hx Neuro Disorders: No - GI Hx GI Disorders: Yes Hx Reflux: Yes Hx Ulcer: Yes Hx of Polyps: Yes Comment:: hx of constipation - Hx Genitourinary Disorders: Yes Hx Bladder Problem: Yes (bladder spasms) Comment:: n/a - ENDOCRINE Hx Endocrine Disorders: No Hx Diabetes: No Hx Thyroid Disease: No - MUSCULOSKELETAL Hx Musculoskeletal Disorders: Yes Hx Arthritis: No Hx Back Injury: No Hx Fibromyalgia: No Hx Gout: No Hx Musculoskeletal Disease: No Hx Osteoporosis: No - PSYCH Hx Psych Problems: Yes Hx Anxiety: Yes Hx Behavior Problems: No Hx Depression: Yes Hx Emotional Abuse: No Hx Sexual Abuse: No Hx Suicide Attempt: No - HEMATOLOGY/ONCOLOGY Hx Hematology/Oncology Disorders: No Comment:: Psoriasis Family Medical History Any Significant Family History?: Yes Hx Alcohol Use: Father, Mother Hx Anxiety: Father Hx Diabetes: Grandparents *Diabetes Comment: Both Grandmothers. Hx Heart Disease: Mother *Heart Comment: Atrial fib Hx HTN: Father Hx Stroke: Brother/Sister *Stroke Comment: sister had a stroke. Physical Exam - General General Appearance: Alert, Oriented x3, Cooperative, Mild distress - Head Head exam: Normal inspection - Eye Eye exam: Normal appearance, PERRL, EOMI Pupils: Normal accommodation - ENT ENT exam: Normal exam, Mucous membranes moist, Normal external ear exam, Normal orophraynx Ear exam: Normal external inspection. negative: External canal tenderness Nasal Exam: Normal inspection. negative: Discharge, Sinus tenderness Mouth exam: Normal external inspection, Tongue normal Teeth exam: Normal inspection. negative: Dental caries Throat exam: Normal inspection. negative: Tonsillar erythema, Tonsillar exudate - Neck Neck exam: Normal inspection, Full ROM. negative: Tenderness - Respiratory Respiratory exam: Normal lung sounds bilaterally. negative: Respiratory distress - Cardiovascular Cardiovascular Exam: Regular rate, Irregular rhythm - GI/Abdominal GI/Abdominal exam: Soft, Normal bowel sounds. negative: Tenderness - Rectal Rectal exam: Deferred - exam: Deferred - Extremities Extremities exam: Normal inspection, Full ROM, Normal capillary refill. negative: Tenderness - Back Back exam: Reports: Normal inspection, Full ROM. Denies: Muscle spasm, Rash noted, Tenderness - Neurological Neurological exam: Alert, Normal gait, Oriented X3, Reflexes normal - Psychiatric Psychiatric exam: Normal affect, Normal mood - Skin Skin exam: Dry, Intact, Normal color, Warm Course Vital Signs 12/25/16 11:58 Temperature 98.2 F Pulse Rate 84 Respiratory 20 Rate Blood Pressure 106/85 Pulse Ox 97 - Reevaluation(s) Reevaluation #1: 12/25/16 15:36 pt spontaneously converted Reevaluation #2: 12/25/16 16:04 d/w dr hickox Medical Decision Making - Management Options MDM Management: Additional Work-up Planned (e.g. ADM/Transfer/OP Study) - Data Complexity MDM Data: Labs Ordered and/or Reviewed, X-Ray Ordered and/or Reviewed, EKG Ordered and/or Reviewed - Lab Data Result diagrams: 12/25/16 12:35 12/25/16 12:35 - EKG Data EKG: Abnormal EKG (afib) - Radiology Data Radiology results: Report reviewed, Image reviewed Disposition Disposition: Discharge Clinical Impression: A-fib Qualifiers: Atrial fibrillation type: paroxysmal Qualified Code(s): I48.0 - Paroxysmal atrial fibrillation Chest pain Qualifiers: Chest pain type: unspecified Qualified Code(s): R07.9 - Chest pain, unspecified Disposition: Home, Self-Care Condition: (1) Good Instructions: Atrial Fibrillation (ED) Additional Instructions: follow up with family doctor and with lap welder, dr stauffer, tomorrow. return sooner if worse. Referrals: LILIYA STAUFFER [DOCTOR OF OSTEOPATH] - [facility] [Provider Group] Forms: Patient Portal Access
[2016-12-25 12:42] LABS: BASO % 0.3 % (0-6); EOS % 1.9 % (0-6); GRAN % 62.7 % (47-80); HEMATOCRIT 48.3 % (35.0-47.0); HEMOGLOBIN 15.2 gm/dl (11.6-16.0); LYMPH % 25.4 % (16-45); MEAN CELL VOLUME 93.1 fl (81-97); MEAN CORPUSCULAR HEMOGLOBIN 29.3 pg (27-33); MEAN CORPUSCULAR HGB CONC 31.5 g/dl (32-36); MONO % 9.7 % (0-9); PLATELET COUNT 330 K/uL (130-400); RED BLOOD COUNT 5.19 M/uL (3.80-5.40); RED CELL DISTRIBUTION WIDTH 13.9 % (11.5-14.5); WHITE BLOOD COUNT W/O DIFF 6.3 K/uL (4.2-12.2)
[2016-12-25 12:54] LABS: ANION GAP 10.8 (7-16); BLOOD UREA NITROGEN 21 mg/dL (7-17); CARBON DIOXIDE 26.2 mmol/L (22-30); CREATININE 0.9 mg/dL (0.52-1.04); EST GLOMERULAR FILTRATION RATE > 60 ml/min; GLUCOSE,RANDOM 101 mg/dL (70-110)
[2016-12-25] MEDS ORDERED: HEPARIN SODIUM 1000 UNIT/1 ML 10ML VIAL IVP ONE (12:54)
[2016-12-25] MEDS ORDERED: HEPARIN SODIUM/D5W 25,000 UNITS/500 ML BAG IV SCH (13:00)
[2016-12-25 13:06] LABS: CKMB 0.8 ug/L (0-6); TROPONIN I < 0.012 ng/mL (0.00-0.034)
[2016-12-25 15:24] LABS: CKMB 0.6 ug/L (0-6); TROPONIN I < 0.012 ng/mL (0.00-0.034)
== END 2016-12-25 16:20 | disposition home or self-care (01) ==
LOC: ER 11:54
DX: I48.0 Paroxysmal atrial fibrillation (principal); R07.89 Other chest pain; I10 Essential (primary) hypertension; Z87.891 Personal history of nicotine dependence
CPT/HCPCS: 80048; 82553; 84443; 84484; 85025; 85730; 93005; 93010; 96365; 96366; 96375; 99284

== ENCOUNTER 2017-03-07 10:26 | Emergency (ER) | payer BC ==
[2017-03-07] MEDS ORDERED: ASPIRIN 81 MG CHEWABLE TABLET PO ONE (10:59)
[2017-03-07] MEDS ORDERED: NITROGLYCERIN 0.4MG SL TABLET #25 BTL SL PRN (10:59)
[2017-03-07 11:22] LABS: BASO % 0.2 % (0-6); EOS % 1.6 % (0-6); GRAN % 58.9 % (47-80); HEMATOCRIT 44.1 % (35.0-47.0); HEMOGLOBIN 14.4 gm/dl (11.6-16.0); LYMPH % 29.4 % (16-45); MEAN CORPUSCULAR HEMOGLOBIN 30.4 pg (27-33); MEAN CORPUSCULAR HGB CONC 32.7 g/dl (32-36); MONO % 9.9 % (0-9); PLATELET COUNT 257 K/uL (130-400); RED BLOOD COUNT 4.74 M/uL (3.80-5.40); RED CELL DISTRIBUTION WIDTH 13.8 % (11.5-14.5); WHITE BLOOD COUNT W/O DIFF 5.1 K/uL (4.2-12.2)
[2017-03-07 11:35] LABS: ALB/GLOB RATIO 1.2 (1.1-1.8); ALBUMIN 4.2 gm/dL (3.5-5.0); ALKALINE PHOSPHATASE 89 U/L (38-126); ALT/SGPT 41 U/L (9-52); ANION GAP 8.5 (7-16); AST/SGOT 24 U/L (14-36); BILIRUBIN,TOTAL 0.86 mg/dL (0.2-1.3); BLOOD UREA NITROGEN 17 mg/dL (7-17); CARBON DIOXIDE 23.5 mmol/L (22-30); CREATINE PHOSPHOKINASE 105 U/L (30-135); CREATININE 0.7 mg/dL (0.52-1.04); EST GLOMERULAR FILTRATION RATE > 60 ml/min; GLUCOSE,RANDOM 95 mg/dL (70-110); TOTAL PROTEIN 7.8 gm/dL (6.3-8.2)
[2017-03-07 11:47] LABS: CKMB 0.8 ug/L (0-6)
[2017-03-07 11:48] LABS: TROPONIN I < 0.012 ng/mL (0.00-0.034)
--- NOTE | 2017-03-07 13:25 | Emergency Department Record ---
History of Present Illness - General Chief Complaint: Palpitations Stated Complaint: CHEST DISCOMFORT Time Seen by Provider: 03/07/17 10:40 Source: Patient Mode of Arrival: Ambulatory Limitations: No limitations - History of Present Illness Initial Comments: pt has been having palpitations and chest pressure since the middle of the night intermittantly. MD Complaint: Palpitations Onset/Timin -: Hour(s) Context: Occurred during rest Arrythmia History: Atrial fibrillation Associated Symptoms: Chest pain - Related Data Home Medications Medication Instructions Recorded Confirmed Last Taken Esomeprazole Magnesium [Nexium 22.3 mg PO DAILY PRN 03/18/15 03/07/17 10/05/16 24Hr] Diltiazem HCl [Diltiazem ER] 240 mg PO DAILY 11/21/16 03/07/17 11/29/16 Dronedarone HCl [Multaq] 400 mg PO BID 11/21/16 03/07/17 11/29/16 Aspirin [Aspir-Low] 81 mg PO DAILY 11/29/16 03/07/17 11/29/16 Allergies Allergy/AdvReac Type Severity Reaction Status Date / Time ciprofloxacin [From Cipro] Allergy Mild LIP Verified 10/05/16 23:24 NUMBNESS ciprofloxacin HCl Allergy Mild LIP Verified 10/05/16 23:24 [From Cipro] NUMBNESS erythromycin base Allergy Unknown VOMITING Verified 10/05/16 23:24 [ERYTHROMYCIN BASE] meperidine [MEPERIDINE] Allergy Unknown ALTERED Verified 10/05/16 23:24 MENTAL STATUS Sulfa (Sulfonamide Allergy Unknown RASH Verified 10/05/16 23:24 Antibiotics) [SULFA (SULFONAMIDE ANTIBIOTICS)] meperidine HCl [From Demerol] AdvReac HYPERSENSIT Verified 10/05/16 23:24 IVITY Travel Screening - Travel/Exposure Within Last 30 Days Have you traveled within the last 30 days?: No Review of Systems Reviewed: No additional complaints except as noted below Constitutional: Reports: As per HPI. Denies: Chills, Fever, Malaise, Night sweats, Weakness, Weight change Eyes: Reports: As per HPI. Denies: Eye discharge, Eye pain, Photophobia, Vision change ENT: Reports: As per HPI. Denies: Congestion, Dental pain, Ear pain, Epistaxis , Hearing loss, Throat pain Respiratory: Reports: As per HPI. Denies: Cough, Dyspnea, Hemoptysis, Stridor, Wheezes Cardiovascular: Reports: As per HPI. Denies: Arrhythmia, Chest pain, Dyspnea on exertion, Edema, Murmurs, Orthopnea, Palpitations, Paroxysmal nocturnal dyspnea, Rheumatic Fever, Syncope Endocrine: Reports: As per HPI. Denies: Fatigue, Heat or cold intolerance, Polydipsia, Polyuria Gastrointestinal: Reports: As per HPI. Denies: Abdominal pain, Constipation, Diarrhea, Hematemesis, Hematochezia, Melena, Nausea, Vomiting Genitourinary: Reports: As per HPI. Denies: Abnormal menses, Discharge, Dyspareunia, Dysuria, Frequency, Hematuria, Incontinence, Retention, Urgency Musculoskeletal: Reports: As per HPI. Denies: Arthralgia, Back pain, Gout, Joint swelling, Myalgia, Neck pain Skin: Reports: As per HPI. Denies: Bruising, Change in color, Change in hair/ nails, Lesions, Pruritus, Rash Neurological: Reports: As per HPI. Denies: Abnormal gait, Confusion, Headache, Numbness, Paresthesias, Seizure, Tingling, Tremors, Vertigo, Weakness Psychiatric: Reports: As per HPI. Denies: Anxiety, Auditory hallucinations, Depression, Homicidal thoughts, Suicidal thoughts, Visual hallucinations Hematological/Lymphatic: Reports: As per HPI. Denies: Anemia, Blood Clots, Easy bleeding, Easy bruising, Swollen glands Past Medical History - SOCIAL HISTORY Smoking Status: Former smoker Alcohol Use: None Drug Use: None - RESPIRATORY Hx Respiratory Disorders: Yes Hx Sleep Apnea: Yes Hx of CPAP: No - CARDIOVASCULAR Hx Cardio Disorders: Yes Hx Abnormal EKG: Yes Hx Cardiac Cath: No Hx Chest Pain: No Hx CHF: No Hx Deep Vein Thrombosis: No Hx Edema: No Hx Heart Attack: No Hx Hypertension: Yes Hx Hypotension: No Hx Irregular Heartbeat: Yes (A-Fib) Hx Palpitations: Yes Hx Pacemaker/Defib: No Hx Vascular Disease: No - NEURO Hx Neuro Disorders: No - GI Hx GI Disorders: Yes Hx Reflux: Yes Hx Ulcer: Yes Hx of Polyps: Yes Comment:: hx of constipation - Hx Genitourinary Disorders: Yes Hx Bladder Problem: Yes (bladder spasms) Comment:: n/a - ENDOCRINE Hx Endocrine Disorders: No Hx Diabetes: No Hx Thyroid Disease: No - MUSCULOSKELETAL Hx Musculoskeletal Disorders: Yes Hx Arthritis: No Hx Back Injury: No Hx Fibromyalgia: No Hx Gout: No Hx Musculoskeletal Disease: No Hx Osteoporosis: No - PSYCH Hx Psych Problems: Yes Hx Anxiety: Yes Hx Behavior Problems: No Hx Depression: Yes Hx Emotional Abuse: No Hx Sexual Abuse: No Hx Suicide Attempt: No - HEMATOLOGY/ONCOLOGY Hx Hematology/Oncology Disorders: No Comment:: Psoriasis Family Medical History Any Significant Family History?: Yes Hx Alcohol Use: Father, Mother Hx Anxiety: Father Hx Diabetes: Grandparents *Diabetes Comment: Both Grandmothers. Hx Heart Disease: Mother *Heart Comment: Atrial fib Hx HTN: Father Hx Stroke: Brother/Sister *Stroke Comment: sister had a stroke. Physical Exam - General General Appearance: Alert, Oriented x3, Cooperative, Mild distress - Head Head exam: Normal inspection - Eye Eye exam: Normal appearance, PERRL, EOMI Pupils: Normal accommodation - ENT ENT exam: Normal exam, Mucous membranes moist, Normal external ear exam, Normal orophraynx Ear exam: Normal external inspection. negative: External canal tenderness Nasal Exam: Normal inspection. negative: Discharge, Sinus tenderness Mouth exam: Normal external inspection, Tongue normal Teeth exam: Normal inspection. negative: Dental caries Throat exam: Normal inspection. negative: Tonsillar erythema, Tonsillar exudate - Neck Neck exam: Normal inspection, Full ROM. negative: Tenderness - Respiratory Respiratory exam: Normal lung sounds bilaterally. negative: Respiratory distress - Cardiovascular Cardiovascular Exam: Regular rate, Normal rhythm, Normal heart sounds - GI/Abdominal GI/Abdominal exam: Soft, Normal bowel sounds. negative: Tenderness - Rectal Rectal exam: Deferred - exam: Deferred - Extremities Extremities exam: Normal inspection, Full ROM, Normal capillary refill. negative: Tenderness - Back Back exam: Reports: Normal inspection, Full ROM. Denies: Muscle spasm, Rash noted, Tenderness - Neurological Neurological exam: Alert, CN II-XII intact, Normal gait, Oriented X3 - Psychiatric Psychiatric exam: Normal affect, Normal mood - Skin Skin exam: Dry, Intact, Normal color, Warm Course Vital Signs 03/07/17 03/07/17 10:32 12:28 Temperature 98.0 F Pulse Rate 65 Pulse Rate [ 56 L [employer] ] Respiratory 20 18 Rate Blood Pressure 142/85 Blood Pressure 130/75 [Left Arm] Pulse Ox 96 97 - Reevaluation(s) Reevaluation #1: 03/07/17 15:11 workup is negative Medical Decision Making - Lab Data Result diagrams: 03/07/17 10:40 03/07/17 10:40 Lab Results 03/07/17 03/07/17 03/07/17 Range/Units 10:40 10:40 10:40 WBC 5.1 (4.2-12.2) K/uL RBC 4.74 (3.80-5.40) M/uL Hgb 14.4 (11.6-16.0) gm/dl Hct 44.1 (35.0-47.0) % MCV 93.0 (81-97) fl MCH 30.4 (27-33) pg MCHC 32.7 (32-36) g/dl RDW 13.8 (11.5-14.5) % Plt Count 257 (130-400) K/uL MPV 10.0 (7.4-10.4) fl Gran % 58.9 (47-80) % Lymphocytes % 29.4 (16-45) % Monocytes % 9.9 H (0-9) % Eosinophils % 1.6 (0-6) % Basophils % 0.2 (0-6) % D-Dimer 0.98 H (0-0.59) mg/L FEU Sodium 138 (136-145) mmol/L Potassium 4.1 (3.5-5.1) mmol/L Chloride 106 (98-107) mmol/L Carbon Dioxide 23.5 (22-30) mmol/L Anion Gap 8.5 (7-16) BUN 17 (7-17) mg/dL Creatinine 0.7 (0.52-1.04) mg/dL Estimated GFR > 60 ml/min Random Glucose 95 (70-110) mg/dL Calcium 8.7 (8.5-10.1) mg/dL Total Bilirubin 0.86 (0.2-1.3) mg/dL AST 24 (14-36) U/L ALT 41 (9-52) U/L Alkaline Phosphatase 89 (38-126) U/L Creatine Kinase 105 (30-135) U/L CK-MB (CK-2) 0.8 (0-6) ug/L Troponin I < 0.012 (0.00-0.034) ng/mL Total Protein 7.8 (6.3-8.2) gm/dL Albumin 4.2 (3.5-5.0) gm/dL Globulin 3.6 (1.4-4.8) gm/dL Albumin/Globulin Ratio 1.2 (1.1-1.8) Disposition Disposition: Discharge Clinical Impression: Palpitations Chest pain Qualifiers: Chest pain type: unspecified Qualified Code(s): R07.9 - Chest pain, unspecified Disposition: Home, Self-Care Condition: (1) Good Instructions: Heart Palpitations (ED), Noncardiac Chest Pain (ED) Additional Instructions: follow up with family doctor. return sooner if worse. Quality - Quality Measures Quality Measures: N/A - Blood Pressure Screening Blood Pressure Classification: Pre-Hypertensive BP Reading Systolic Measurement: 142 Diastolic Measurement: 85 Screening for High Blood Pressure: < Pre-Hypertensive BP, F/U Documented > [ G8950] Pre-Hypertensive Follow-up Interventions: Referral to alternative/primary care provider.
[2017-03-07 15:06] LABS: CKMB 0.8 ug/L (0-6)
[2017-03-07 15:09] LABS: TROPONIN I < 0.012 ng/mL (0.00-0.034)
--- NOTE | 2017-03-08 07:31 | CT ANGIOGRAM REPORT ---
EXAM: CTA OF THE CHEST HISTORY: CHEST PRESSURE. TECHNIQUE: CTA of the chest was performed using pulmonary embolus protocol following the IV administration of 82 ml of Omnipaque 350 contrast. Axial images were obtained with coronal and sagittal MIP reconstructions performed on a dedicated workstation. Comparison: Prior CTA of the chest from 04/28/15. FINDINGS: The visualized thyroid gland enhances normally. The mediastinal vasculature enhances normally. There is no intraluminal filling defect to suggest pulmonary embolus. Negative for thoracic aortic aneurysm or dissection. Limited evaluation of the upper abdomen suggests fatty infiltrative change to the liver. The osseous structures are grossly intact. No pneumothorax. The visualized airways are patent. Linear scarring in the left mid lung. The lungs are otherwise clear. IMPRESSION: NEGATIVE FOR AN ACUTE INTRATHORACIC PROCESS. JOB NUMBER: [id number] MTDD
== END 2017-03-07 15:30 | disposition home or self-care (01) ==
LOC: ER 10:26
DX: R00.2 Palpitations (principal); R07.9 Chest pain, unspecified; I10 Essential (primary) hypertension; Z87.891 Personal history of nicotine dependence
CPT/HCPCS: 99284 ×2; 82550; 85025; 82553; 84484; 80053; 85379; 71275; 93005; 93010; Q9967

== ENCOUNTER 2017-03-15 16:37 | Emergency (ER) | payer BC ==
--- NOTE | 2017-03-15 17:09 | Emergency Department Record ---
History of Present Illness - General Chief complaint: Edema Stated complaint: BOTH FEET,ANKLES SWELLED Time Seen by Provider: 03/15/17 16:57 Source: Patient Mode of Arrival: Ambulatory Limitations: No limitations - History of Present Illness Initial comments: The patient is here due to foot and ankle swelling for 1-2 days. She first noticed the swelling 2 days ago in the L leg and now it has started in the R. The L ankle and foot are now more swollen. She denies any leg, thigh or calf pain. She also denies any CP, SOB, ESPINAL, or JOCELYNE. The patient was started on Multaq a few months ago and feels it could be a side affect. MD Complaint: Extremity swelling Onset/Timin -: Hour(s) Location: Bilateral, Ankle, Foot History of Same: No Associated Symptoms: Denies other symptoms - Related Data Home Medications Medication Instructions Recorded Confirmed Last Taken Esomeprazole Magnesium [Nexium 22.3 mg PO DAILY PRN 03/18/15 03/15/17 03/15/17 24Hr] Diltiazem HCl [Diltiazem ER] 240 mg PO DAILY 11/21/16 03/15/17 03/15/17 Dronedarone HCl [Multaq] 400 mg PO BID 11/21/16 03/15/17 03/15/17 Aspirin [Aspir-Low] 81 mg PO DAILY 11/29/16 03/15/17 03/15/17 Allergies Allergy/AdvReac Type Severity Reaction Status Date / Time ciprofloxacin [From Cipro] Allergy Mild LIP Verified 03/15/17 16:39 NUMBNESS ciprofloxacin HCl Allergy Mild LIP Verified 03/15/17 16:39 [From Cipro] NUMBNESS erythromycin base Allergy Unknown VOMITING Verified 03/15/17 16:39 [ERYTHROMYCIN BASE] meperidine [MEPERIDINE] Allergy Unknown ALTERED Verified 03/15/17 16:39 MENTAL STATUS Sulfa (Sulfonamide Allergy Unknown RASH Verified 03/15/17 16:39 Antibiotics) [SULFA (SULFONAMIDE ANTIBIOTICS)] meperidine HCl [From Demerol] AdvReac HYPERSENSIT Verified 03/15/17 16:39 IVITY Travel Screening - Travel/Exposure Within Last 30 Days Have you traveled within the last 30 days?: No - Travel/Exposure Within Last Year Have you traveled outside the [place] in the last year?: No - Additonal Travel Details Have you been exposed to anyone with a communicable illness?: No - Travel Symptoms Symptom Screening: None Review of Systems Constitutional: Denies: Chills, Fever Eyes: Denies: Eye discharge ENT: Denies: Congestion Respiratory: Denies: Cough, Dyspnea Past Medical History - SOCIAL HISTORY Smoking Status: Former smoker Alcohol Use: None Drug Use: None - RESPIRATORY Hx Respiratory Disorders: Yes Hx Sleep Apnea: Yes Hx of CPAP: No - CARDIOVASCULAR Hx Cardio Disorders: Yes Hx Abnormal EKG: Yes Hx Cardiac Cath: No Hx Chest Pain: No Hx CHF: No Hx Deep Vein Thrombosis: No Hx Edema: No Hx Heart Attack: No Hx Hypertension: Yes Hx Hypotension: No Hx Irregular Heartbeat: Yes (A-Fib) Hx Palpitations: Yes Hx Pacemaker/Defib: No Hx Vascular Disease: No - NEURO Hx Neuro Disorders: No - GI Hx GI Disorders: Yes Hx Reflux: Yes Hx Ulcer: Yes Hx of Polyps: Yes Comment:: hx of constipation - Hx Genitourinary Disorders: Yes Hx Bladder Problem: Yes (bladder spasms) Comment:: n/a - ENDOCRINE Hx Endocrine Disorders: No Hx Diabetes: No Hx Thyroid Disease: No - MUSCULOSKELETAL Hx Musculoskeletal Disorders: Yes Hx Arthritis: No Hx Back Injury: No Hx Fibromyalgia: No Hx Gout: No Hx Musculoskeletal Disease: No Hx Osteoporosis: No - PSYCH Hx Psych Problems: Yes Hx Anxiety: Yes Hx Behavior Problems: No Hx Depression: Yes Hx Emotional Abuse: No Hx Sexual Abuse: No Hx Suicide Attempt: No - HEMATOLOGY/ONCOLOGY Hx Hematology/Oncology Disorders: No Comment:: Psoriasis Family Medical History Any Significant Family History?: Yes Hx Alcohol Use: Father, Mother Hx Anxiety: Father Hx Diabetes: Grandparents *Diabetes Comment: Both Grandmothers. Hx Heart Disease: Mother *Heart Comment: Atrial fib Hx HTN: Father Hx Stroke: Brother/Sister *Stroke Comment: sister had a stroke. Physical Exam - General General Appearance: Alert, Oriented x3, Cooperative, No acute distress - Head Head exam: Atraumatic, Normocephalic, Normal inspection - Eye Eye exam: Normal appearance, PERRL - Neck Neck exam: Normal inspection, Full ROM. negative: Tenderness - Respiratory Respiratory exam: Normal lung sounds bilaterally. negative: Respiratory distress - Cardiovascular Cardiovascular Exam: Regular rate, Normal rhythm, Normal heart sounds - Extremities Extremities exam: Joint swelling (ankles L>R.), Pedal edema (1+ bilaterally.), Other (There is mild to moderate edema to the ankles and feet. The feet are NVI. ). negative: Normal inspection, Calf tenderness, Tenderness Course Vital Signs 03/15/17 16:44 Temperature 98.3 F Pulse Rate 71 Respiratory 20 Rate Blood Pressure 172/80 Pulse Ox 100 - Reevaluation(s) Reevaluation #1: The patient is doing very well at this time. She denies any CP, SOB, or JOCELYNE and has no signs of heart failure. I explained to her the mild edema may be due to her weight and the hot weather and did discuss the option of a low dose diuretic but she was very reluctant to try that. She has an appointment with her PCP tomorrow and she is instructed to discuss the issues at that time. 03/15/17 18:44 Medical Decision Making - Data Complexity MDM Data: Labs Ordered and/or Reviewed, X-Ray Ordered and/or Reviewed - Lab Data Result diagrams: 03/15/17 17:25 03/15/17 17:25 - Radiology Data Radiology results: Report reviewed (L Leg Doppler: Neg.) Disposition Disposition: Discharge Clinical Impression: Edema, lower extremity Disposition: Home, Self-Care Condition: (1) Good Instructions: Leg Edema (ED) Additional Instructions: Please continue your regular medicines and please obtain OTC compression stockings to combat the edema. Please keep your appointment with your PCP for tomorrow to discuss the issues further. Return to the ER if worse or for any chest pain, trouble breathing or wheezing. Forms: Patient Portal Access Time of Disposition: 18:47 Quality - Quality Measures Quality Measures: N/A - Blood Pressure Screening View Details: Yes Blood Pressure Classification: Pre-Hypertensive BP Reading Systolic Measurement: 172 Diastolic Measurement: 80 Screening for High Blood Pressure: < Pre-Hypertensive BP, F/U Documented > [ G8950] Pre-Hypertensive Follow-up Interventions: Follow-up with rescreen every year.
[2017-03-15 17:33] LABS: BASO % 0.2 % (0-6); EOS % 2.3 % (0-6); GRAN % 53.6 % (47-80); HEMATOCRIT 41.7 % (35.0-47.0); HEMOGLOBIN 13.6 gm/dl (11.6-16.0); LYMPH % 32.5 % (16-45); MEAN CELL VOLUME 93.3 fl (81-97); MEAN CORPUSCULAR HEMOGLOBIN 30.4 pg (27-33); MEAN CORPUSCULAR HGB CONC 32.6 g/dl (32-36); MONO % 11.4 % (0-9); PLATELET COUNT 223 K/uL (130-400); RED BLOOD COUNT 4.47 M/uL (3.80-5.40); RED CELL DISTRIBUTION WIDTH 13.9 % (11.5-14.5); WHITE BLOOD COUNT W/O DIFF 6.2 K/uL (4.2-12.2)
[2017-03-15 17:48] LABS: URINE APPEARANCE CLEAR; URINE BILIRUBIN NEGATIVE (NEGATIVE); URINE COLOR YELLOW; URINE GLUCOSE (UA) NEGATIVE (NEGATIVE); URINE KETONE NEGATIVE (NEGATIVE); URINE PROTEIN NEGATIVE (NEGATIVE)
[2017-03-15 17:49] LABS: URINE BLOOD TRACE-NONHEMOLYZED (NEGATIVE); URINE LEUKOCYTE ESTERASE NEGATIVE (NEGATIVE); URINE NITRITE NEGATIVE (NEGATIVE); URINE UROBILINOGEN 0.2 E.U./dL (0.20 - 1.00)
[2017-03-15 17:54] LABS: URINE BACTERIA FEW; URINE WBC 0 - 2 (0-2/hpf)
[2017-03-15 17:55] LABS: ALB/GLOB RATIO 1.1 (1.1-1.8); ALBUMIN 3.9 gm/dL (3.5-5.0); ALKALINE PHOSPHATASE 99 U/L (38-126); ALT/SGPT 42 U/L (9-52); AST/SGOT 21 U/L (14-36); BILIRUBIN,TOTAL 0.71 mg/dL (0.2-1.3); BLOOD UREA NITROGEN 19 mg/dL (7-17); CREATININE 0.8 mg/dL (0.52-1.04); EST GLOMERULAR FILTRATION RATE > 60 ml/min; GLUCOSE,RANDOM 93 mg/dL (70-110); TOTAL PROTEIN 7.3 gm/dL (6.3-8.2)
[2017-03-15] MEDS ORDERED: FUROSEMIDE 20 MG TABLET PO ONE (18:31)
--- NOTE | 2017-03-16 10:40 | US VENOUS DOPPLER REPORT ---
EXAM: LEFT LOWER EXTREMITY VENOUS DOPPLER ULTRASOUND HISTORY: LEFT LEG SWELLING, TETANUS. TECHNIQUE: Real-time quesada scale sonographic imaging of the left lower extremity was performed with Duplex Doppler and spectral waveform analysis. Comparison: None. FINDINGS: Normal color flow and compressibility in the following vessels: Left common femoral vein, left greater saphenous vein, left superficial femoral vein, left profunda femoral vein, left popliteal vein, left posterior tibial vein, left peroneal vein, and left anterior tibial vein. Spectral analysis demonstrates normal respiratory phasicity within the left common femoral vein. IMPRESSION: NO EVIDENCE OF LEFT LOWER EXTREMITY DEEP VENOUS THROMBOSIS. JOB NUMBER: [id number] MTDD
== END 2017-03-15 19:02 | disposition home or self-care (01) ==
LOC: ER 16:37
DX: R60.0 Localized edema (principal); I10 Essential (primary) hypertension; I48.91 Unspecified atrial fibrillation
CPT/HCPCS: 80053; 81001; 85025; 99283; 99284

== ENCOUNTER 2017-05-05 18:33 | Emergency (ER) | payer BC ==
--- NOTE | 2017-05-05 19:03 | Emergency Department Record ---
History of Present Illness - General Chief Complaint: Arrythmia/Palpitations Stated Complaint: THINK SHE IS A FIB Time Seen by Provider: 05/05/17 19:01 Source: Patient Mode of Arrival: Ambulatory Limitations: No limitations - History of Present Illness Initial Comments: 56 yo female presents to ED for evaluation of "possible Atrial Fibrillation vs. anxiety". Patient reports a history of paroxysmal atrial fibrillation, however is normally in NSR and does not take anticoagulation medications. Patient reports that her symptoms began approximately 4 hours prior to arrival. Patient reports that her symptoms occur intermittently (around the time of family events), denies chest pain or pressure symptoms. MD Complaint: Atrial fibrillation Onset/Timin -: Hour(s) Arrythmia History: Atrial fibrillation Associated Symptoms: Shortness of breath - Related Data Home Medications Medication Instructions Recorded Confirmed Last Taken Lorazepam [Ativan] 0.5 mg PO Q8HR PRN 05/05/17 05/05/17 05/05/17 Allergies Allergy/AdvReac Type Severity Reaction Status Date / Time ciprofloxacin [From Cipro] Allergy Mild LIP Verified 03/15/17 16:39 NUMBNESS ciprofloxacin HCl Allergy Mild LIP Verified 03/15/17 16:39 [From Cipro] NUMBNESS erythromycin base Allergy Unknown VOMITING Verified 03/15/17 16:39 [ERYTHROMYCIN BASE] meperidine [MEPERIDINE] Allergy Unknown ALTERED Verified 03/15/17 16:39 MENTAL STATUS Sulfa (Sulfonamide Allergy Unknown RASH Verified 03/15/17 16:39 Antibiotics) [SULFA (SULFONAMIDE ANTIBIOTICS)] meperidine HCl [From Demerol] AdvReac HYPERSENSIT Verified 03/15/17 16:39 IVITY Travel Screening - Travel/Exposure Within Last 30 Days Have you traveled within the last 30 days?: No - Travel Symptoms Symptom Screening: None Review of Systems Constitutional: Denies: Chills, Fever, Malaise, Night sweats Eyes: Denies: Eye discharge, Eye pain ENT: Denies: Congestion, Ear pain, Epistaxis Respiratory: Reports: Dyspnea. Denies: Cough Cardiovascular: Reports: Palpitations. Denies: Chest pain, Dyspnea on exertion Endocrine: Denies: Fatigue, Heat or cold intolerance Gastrointestinal: Denies: Abdominal pain, Nausea, Vomiting Genitourinary: Denies: Incontinence, Retention Musculoskeletal: Denies: Arthralgia, Back pain Skin: Denies: Bruising, Change in color Neurological: Denies: Abnormal gait, Confusion, Headache, Seizure Psychiatric: Denies: Anxiety Hematological/Lymphatic: Denies: Anemia, Blood Clots Past Medical History - SOCIAL HISTORY Smoking Status: Former smoker - RESPIRATORY Hx Respiratory Disorders: Yes Hx Sleep Apnea: Yes Hx of CPAP: No - CARDIOVASCULAR Hx Cardio Disorders: Yes Hx Abnormal EKG: Yes Hx Cardiac Cath: No Hx Chest Pain: No Hx CHF: No Hx Deep Vein Thrombosis: No Hx Edema: No Hx Heart Attack: No Hx Hypertension: Yes Hx Hypotension: No Hx Irregular Heartbeat: Yes (A-Fib) Hx Palpitations: Yes Hx Pacemaker/Defib: No Hx Vascular Disease: No - NEURO Hx Neuro Disorders: No - GI Hx GI Disorders: Yes Hx Reflux: Yes Hx Ulcer: Yes Hx of Polyps: Yes Comment:: hx of constipation - Hx Genitourinary Disorders: Yes Hx Bladder Problem: Yes (bladder spasms) Comment:: n/a - ENDOCRINE Hx Endocrine Disorders: No Hx Diabetes: No Hx Thyroid Disease: No - MUSCULOSKELETAL Hx Musculoskeletal Disorders: Yes Hx Arthritis: No Hx Back Injury: No Hx Fibromyalgia: No Hx Gout: No Hx Musculoskeletal Disease: No Hx Osteoporosis: No - PSYCH Hx Psych Problems: Yes Hx Anxiety: Yes Hx Behavior Problems: No Hx Depression: Yes Hx Emotional Abuse: No Hx Sexual Abuse: No Hx Suicide Attempt: No - HEMATOLOGY/ONCOLOGY Hx Hematology/Oncology Disorders: No Comment:: Psoriasis Family Medical History Any Significant Family History?: Yes Hx Alcohol Use: Father, Mother Hx Anxiety: Father Hx Diabetes: Grandparents *Diabetes Comment: Both Grandmothers. Hx Heart Disease: Mother *Heart Comment: Atrial fib Hx HTN: Father Hx Stroke: Brother/Sister *Stroke Comment: sister had a stroke. Physical Exam - General General Appearance: Alert, Oriented x3, Cooperative Limitations: No limitations - Head Head exam: Atraumatic, Normocephalic, Normal inspection Head exam detail: negative: Abrasion, Contusion, Dickinson's sign, General tenderness, Hematoma, Laceration - Eye Eye exam: Normal appearance. negative: Conjunctival injection, Periorbital swelling, Periorbital tenderness, Scleral icterus - ENT Ear exam: negative: Auricular hematoma, Auricular trauma Nasal Exam: negative: Active bleeding, Discharge, Dried blood, Foreign body Mouth exam: negative: Drooling, Laceration, Muffled voice, Tongue elevation - Neck Neck exam: Normal inspection. negative: Meningismus, Tenderness - Respiratory Respiratory exam: Normal lung sounds bilaterally. negative: Rales, Respiratory distress, Rhonchi, Stridor - Cardiovascular Cardiovascular Exam: Irregular rhythm - GI/Abdominal GI/Abdominal exam: Soft. negative: Rebound, Rigid, Tenderness - Rectal Rectal exam: Deferred - exam: Deferred - Extremities Extremities exam: Normal inspection. negative: Calf tenderness, Pedal edema, Tenderness - Back Back exam: Denies: CVA tenderness (R), CVA tenderness (L) - Neurological Neurological exam: Alert, Normal gait, Oriented X3 - Psychiatric Psychiatric exam: Normal affect, Normal mood - Skin Skin exam: Normal color. negative: Abrasion Type of lesion: negative: abrasion Course Vital Signs 05/05/17 18:54 Temperature 98.3 F Pulse Rate 104 H Respiratory 14 Rate Blood Pressure 141/84 Pulse Ox 97 - Reevaluation(s) Reevaluation #1: 05/05/17 19:01 EKG: Atrial Fibrillation 96 Normal axis, irregular R-R intervals Nonspecific ST-T wave changes V4-V6 Previous 03/07/17-NSR Reevaluation #2: 05/05/17 19:42 Labs reviewed and are grossly unremarkable for an acute process. Monitor reviewed, currently back to NSR. Repeat EKG ordered. Reevaluation #3: 05/05/17 19:49 [facility] paged for consultation. EKG #2: NSR 70 Normal axis, normal intervals No acute ST-T wave changes are present Reevaluation #4: 05/05/17 20:04 Case was discussed with Dr. Priest ([facility]), reviewed patient's previous medical record from 03/20/17 when Anticoagulation with Eliquis 5 mg BID was recommended, however patient declined. I discussed anticoagulation for her paroxysmal atrial fibrillation that was recommended by her brake shoe rebuilder, discussed risk of stroke with the patient given her risk factors, and patient continues to decline Eliquis at this time. Patient reports that she will discuss Eliquis with her PCP and brake shoe rebuilder next week. Medical Decision Making - Lab Data Result diagrams: 05/05/17 19:09 05/05/17 19:09 Disposition Disposition: Discharge Clinical Impression: Atrial fibrillation, transient Disposition: Home, Self-Care Condition: (2) Stable Instructions: A-fib (Atrial Fibrillation) (ED) Additional Instructions: Return to ED if your symptoms worsen or if you have any concerns. Follow-up with your brake shoe rebuilder 3-5 days (Monday/Monday next week) without fail. Discuss Eliquis (anticoagulation medication) with your family doctor and brake shoe rebuilder for intermittent atrial fibrillation. Forms: Patient Portal Access Time of Disposition: 20:09 Quality - Quality Measures Quality Measures: N/A - Blood Pressure Screening Does Patient Have Any of the Following: No Blood Pressure Classification: Pre-Hypertensive BP Reading Systolic Measurement: 141 Diastolic Measurement: 84 Screening for High Blood Pressure: < Pre-Hypertensive BP, F/U Documented > [ G8950] Pre-Hypertensive Follow-up Interventions: Referral to alternative/primary care provider.
[2017-05-05 19:15] LABS: BASO % 0.2 % (0-6); EOS % 1.8 % (0-6); GRAN % 69.3 % (47-80); HEMATOCRIT 46.3 % (35.0-47.0); HEMOGLOBIN 14.9 gm/dl (11.6-16.0); LYMPH % 20.9 % (16-45); MEAN CELL VOLUME 91.9 fl (81-97); MEAN CORPUSCULAR HEMOGLOBIN 29.6 pg (27-33); MEAN CORPUSCULAR HGB CONC 32.2 g/dl (32-36); MEAN PLATELET VOLUME 9.3 fl (7.4-10.4); MONO % 7.8 % (0-9); PLATELET COUNT 287 K/uL (130-400); RED BLOOD COUNT 5.04 M/uL (3.80-5.40); RED CELL DISTRIBUTION WIDTH 13.6 % (11.5-14.5)
[2017-05-05 19:26] LABS: INR 0.96; PROTHROMBIN TIME (PATIENT) 10.4 SECONDS (9.5-12.1)
[2017-05-05 19:37] LABS: ALBUMIN 3.9 g/dL (4.0-5.0); ALKALINE PHOSPHATASE 105 U/L (35-104); ALT/SGPT 16 U/L (<33); AST/SGOT 18 U/L (10.0-35.0); BLOOD UREA NITROGEN 27.3 mg/dL (12.6-42.6); CREATININE 0.6 mg/dL (0.5-0.9); EST GLOMERULAR FILTRATION RATE > 60 mL/min; GLUCOSE,RANDOM 104 mg/dL (74-109); TOTAL PROTEIN 7.8 g/dL (6.6-8.7); TROPONIN I < 0.30 ng/mL (0.00-0.300)
== END 2017-05-05 20:19 | disposition home or self-care (01) ==
LOC: ER 18:33
DX: I48.91 Unspecified atrial fibrillation (principal); R06.02 Shortness of breath; Z87.891 Personal history of nicotine dependence
CPT/HCPCS: 80053; 83880; 84443; 84484; 85025; 85610; 93005; 93010; 99284

== ENCOUNTER 2017-05-22 17:35 | Emergency (ER) | payer BC ==
--- NOTE | 2017-05-22 17:51 | Emergency Department Record ---
History of Present Illness - General Chief Complaint: Arrythmia/Palpitations Stated Complaint: A FIB Time Seen by Provider: 05/22/17 17:49 Source: Patient Mode of Arrival: Ambulatory Limitations: No limitations - History of Present Illness Initial Comments: 56 yo female presents with heart racing, palpitations and feeling of shortness of breath and chest tightness most of the day. She has a history of atrial fibrillation. She felt like she had gone back into atrial fibrillation. She has had episodic atrial fibrillation for several years. She last had palpitations about 2 weeks ago. Her electrical superintendent is Dr Montemayor of [facility] and she sees an EP Prenatal Nurse at [facility]. The symptoms abruptly ended at the time of arrival and she is now asymptomatic. No other new changes in her health recently. Stress seems to be a provoking factor per the patient. No history of CAD or stents. No history of AMI. MD Complaint: Atrial fibrillation, Palpitations -: Hour(s) Arrythmia History: Atrial fibrillation Associated Symptoms: Chest pain, Shortness of breath - Related Data Allergies Allergy/AdvReac Type Severity Reaction Status Date / Time ciprofloxacin [From Cipro] Allergy Mild LIP Verified 05/22/17 17:50 NUMBNESS ciprofloxacin HCl Allergy Mild LIP Verified 05/22/17 17:50 [From Cipro] NUMBNESS erythromycin base Allergy Unknown VOMITING Verified 05/22/17 17:50 [ERYTHROMYCIN BASE] meperidine [MEPERIDINE] Allergy Unknown ALTERED Verified 05/22/17 17:50 MENTAL STATUS Sulfa (Sulfonamide Allergy Unknown RASH Verified 05/22/17 17:50 Antibiotics) [SULFA (SULFONAMIDE ANTIBIOTICS)] meperidine HCl [From Demerol] AdvReac HYPERSENSIT Verified 05/22/17 17:50 IVITY Review of Systems Constitutional: Denies: Chills, Fever, Malaise, Weakness Eyes: Denies: Eye discharge, Eye pain, Photophobia, Vision change ENT: Denies: Congestion, Throat pain Respiratory: Reports: Dyspnea. Denies: Cough, Hemoptysis, Stridor, Wheezes Cardiovascular: Reports: Chest pain, Dyspnea on exertion, Palpitations, Other ( All symptoms resovled). Denies: Edema, Syncope Endocrine: Denies: Fatigue Gastrointestinal: Denies: Abdominal pain, Constipation, Diarrhea, Nausea, Vomiting Genitourinary: Denies: Dysuria, Frequency, Urgency Musculoskeletal: Denies: Arthralgia, Back pain, Myalgia, Neck pain Skin: Denies: Bruising, Change in color, Rash Neurological: Denies: Abnormal gait, Headache, Numbness, Weakness Psychiatric: Denies: Anxiety Hematological/Lymphatic: Denies: Blood Clots, Easy bleeding, Easy bruising, Swollen glands Past Medical History - SOCIAL HISTORY Smoking Status: Former smoker - RESPIRATORY Hx Respiratory Disorders: Yes Hx Sleep Apnea: Yes Hx of CPAP: No - CARDIOVASCULAR Hx Cardio Disorders: Yes Hx Abnormal EKG: Yes Hx Cardiac Cath: No Hx Chest Pain: No Hx CHF: No Hx Deep Vein Thrombosis: No Hx Edema: No Hx Heart Attack: No Hx Hypertension: Yes Hx Hypotension: No Hx Irregular Heartbeat: Yes (A-Fib) Hx Palpitations: Yes Hx Pacemaker/Defib: No Hx Vascular Disease: No - NEURO Hx Neuro Disorders: No - GI Hx GI Disorders: Yes Hx Reflux: Yes Hx Ulcer: Yes Hx of Polyps: Yes Comment:: hx of constipation - Hx Genitourinary Disorders: Yes Hx Bladder Problem: Yes (bladder spasms) Comment:: n/a - ENDOCRINE Hx Endocrine Disorders: No Hx Diabetes: No Hx Thyroid Disease: No - MUSCULOSKELETAL Hx Musculoskeletal Disorders: Yes Hx Arthritis: No Hx Back Injury: No Hx Fibromyalgia: No Hx Gout: No Hx Musculoskeletal Disease: No Hx Osteoporosis: No - PSYCH Hx Psych Problems: Yes Hx Anxiety: Yes Hx Behavior Problems: No Hx Depression: Yes Hx Emotional Abuse: No Hx Sexual Abuse: No Hx Suicide Attempt: No - HEMATOLOGY/ONCOLOGY Hx Hematology/Oncology Disorders: No Comment:: Psoriasis Family Medical History Hx Alcohol Use: Father, Mother Hx Anxiety: Father Hx Diabetes: Grandparents *Diabetes Comment: Both Grandmothers. Hx Heart Disease: Mother *Heart Comment: Atrial fib Hx HTN: Father Hx Stroke: Brother/Sister *Stroke Comment: sister had a stroke. Physical Exam - General General Appearance: Alert, Oriented x3, Cooperative, No acute distress Limitations: No limitations - Head Head exam: Atraumatic, Normocephalic, Normal inspection - Eye Eye exam: Normal appearance. negative: Conjunctival injection, Periorbital swelling - ENT ENT exam: Normal exam, Mucous membranes moist Ear exam: Normal external inspection Nasal Exam: Normal inspection Mouth exam: Normal external inspection - Neck Neck exam: Normal inspection, Full ROM - Respiratory Respiratory exam: Normal lung sounds bilaterally. negative: Respiratory distress, Rhonchi, Stridor, Wheezes - Cardiovascular Cardiovascular Exam: Regular rate, Normal rhythm, Normal heart sounds. negative : Diastolic murmur, Irregular rhythm, Systolic murmur Peripheral Pulses: 2+: Radial (R), Radial (L) - GI/Abdominal GI/Abdominal exam: Soft. negative: Distended, Guarding, Rebound, Rigid, Tenderness - Rectal Rectal exam: Deferred - exam: Deferred - Extremities Extremities exam: Normal inspection, Full ROM, Normal capillary refill. negative: Pedal edema, Tenderness - Back Back exam: Reports: Normal inspection, Full ROM. Denies: Muscle spasm, Rash noted, Tenderness - Neurological Neurological exam: Alert, Normal gait, Oriented X3 - Psychiatric Psychiatric exam: Normal affect, Normal mood. negative: Agitated, Anxious - Skin Skin exam: Dry, Intact, Normal color, Warm Course - Reevaluation(s) Reevaluation #1: EKG 17:32 NSR, rate is 74, Intervals normal, Remer normal, ST no acute changes. No changes 05/05/17. Multiple prior EKG's. 05/22/17 17:49 The patient is asymptomatic at this time. 05/22/17 18:06 05/22/17 18:39 No acute changes on the CBC, CMP or troponin The patient remains asymptomatic with HR 82 The Case was signed out to Dr Salcedo for monitoring and second set of cardiac enzymes Medical Decision Making - Lab Data Result diagrams: 05/22/17 18:09 05/22/17 18:09 Disposition Disposition: Discharge Clinical Impression: Intermittent palpitations Disposition: Home, Self-Care Condition: (2) Stable Instructions: Heart Palpitations (ED) Additional Instructions: Call your electrical superintendent tomorrow for close follow up of your symptoms Return if you have any return of the palpitation, racing, shortness of breath Forms: Patient Portal Access Time of Disposition: 23:00 Quality - Quality Measures Quality Measures: N/A - Blood Pressure Screening Does Patient Have Any of the Following: No Blood Pressure Classification: Normal BP Reading Systolic Measurement: 112 Diastolic Measurement: 72 Screening for High Blood Pressure: < Normal BP, F/U Not Required > [G8783]
[2017-05-22] MEDS ORDERED: ASPIRIN 81 MG CHEWABLE TABLET PO ONE (17:57)
[2017-05-22 18:13] LABS: BASO % 0.3 % (0-6); EOS % 1.4 % (0-6); GRAN % 69.5 % (47-80); HEMATOCRIT 45.7 % (35.0-47.0); HEMOGLOBIN 14.8 gm/dl (11.6-16.0); LYMPH % 20.4 % (16-45); MEAN CORPUSCULAR HEMOGLOBIN 29.8 pg (27-33); MEAN CORPUSCULAR HGB CONC 32.4 g/dl (32-36); MEAN PLATELET VOLUME 9.8 fl (7.4-10.4); MONO % 8.4 % (0-9); PLATELET COUNT 274 K/uL (130-400); RED BLOOD COUNT 4.97 M/uL (3.80-5.40); RED CELL DISTRIBUTION WIDTH 13.6 % (11.5-14.5); WHITE BLOOD COUNT W/O DIFF 7.8 K/uL (4.2-12.2)
[2017-05-22 18:19] LABS: URINE APPEARANCE CLEAR; URINE BILIRUBIN NEGATIVE (NEGATIVE); URINE BLOOD SMALL (NEGATIVE); URINE COLOR YELLOW; URINE GLUCOSE (UA) NEGATIVE (NEGATIVE); URINE KETONE TRACE (NEGATIVE); URINE LEUKOCYTE ESTERASE NEGATIVE (NEGATIVE); URINE NITRITE NEGATIVE (NEGATIVE); URINE PROTEIN NEGATIVE (NEGATIVE); URINE UROBILINOGEN 0.2 E.U./dL (0.20 - 1.00)
[2017-05-22 18:24] LABS: PARTIAL THROMBOPLASTIN TIME 28.9 SECONDS (24.5-39.1); PROTHROMBIN TIME (PATIENT) 10.8 SECONDS (9.5-12.1)
[2017-05-22 18:28] LABS: URINE EPITHELIAL CELLS 0 - 2 (FEW); URINE WBC 0 - 2 (0-2/hpf)
[2017-05-22 18:31] LABS: ALB/GLOB RATIO 0.9 (1.1-1.8); ALBUMIN 3.7 g/dL (4.0-5.0); ALKALINE PHOSPHATASE 98 U/L (35-104); ALT/SGPT 14 U/L (<33); AST/SGOT 18 U/L (10.0-35.0); BLOOD UREA NITROGEN 15 mg/dL (6-20); CREATININE 0.5 mg/dL (0.5-0.9); EST GLOMERULAR FILTRATION RATE > 60 mL/min; GLUCOSE,RANDOM 95 mg/dL (74-109); TOTAL PROTEIN 7.6 g/dL (6.6-8.7)
[2017-05-22 18:32] LABS: TROPONIN I < 0.30 ng/mL (0.00-0.300)
--- NOTE | 2017-05-22 22:35 | Emergency Department Record ---
History of Present Illness - General Chief Complaint: Arrythmia/Palpitations Stated Complaint: A FIB Time Seen by Provider: 05/22/17 17:49 Source: Patient Mode of Arrival: Ambulatory Limitations: No limitations - History of Present Illness MD Complaint: Atrial fibrillation, Palpitations Onset/Timin -: Hour(s) Context: Occurred during rest Arrythmia History: Atrial fibrillation Associated Symptoms: Chest pain, Shortness of breath - Related Data Allergies Allergy/AdvReac Type Severity Reaction Status Date / Time ciprofloxacin [From Cipro] Allergy Mild LIP Verified 05/22/17 17:50 NUMBNESS ciprofloxacin HCl Allergy Mild LIP Verified 05/22/17 17:50 [From Cipro] NUMBNESS erythromycin base Allergy Unknown VOMITING Verified 05/22/17 17:50 [ERYTHROMYCIN BASE] meperidine [MEPERIDINE] Allergy Unknown ALTERED Verified 05/22/17 17:50 MENTAL STATUS Sulfa (Sulfonamide Allergy Unknown RASH Verified 05/22/17 17:50 Antibiotics) [SULFA (SULFONAMIDE ANTIBIOTICS)] meperidine HCl [From Demerol] AdvReac HYPERSENSIT Verified 05/22/17 17:50 IVITY Travel Screening - Travel/Exposure Within Last 30 Days Have you traveled within the last 30 days?: No Review of Systems Constitutional: Denies: Chills, Fever, Malaise, Weakness Eyes: Denies: Eye discharge, Eye pain, Photophobia, Vision change ENT: Denies: Congestion, Throat pain Respiratory: Reports: Dyspnea. Denies: Cough, Hemoptysis, Stridor, Wheezes Cardiovascular: Reports: Chest pain, Dyspnea on exertion, Palpitations, Other ( All symptoms resovled). Denies: Edema, Syncope Endocrine: Denies: Fatigue Gastrointestinal: Denies: Abdominal pain, Constipation, Diarrhea, Nausea, Vomiting Genitourinary: Denies: Dysuria, Frequency, Urgency Musculoskeletal: Denies: Arthralgia, Back pain, Myalgia, Neck pain Skin: Denies: Bruising, Change in color, Rash Neurological: Denies: Abnormal gait, Headache, Numbness, Weakness Psychiatric: Denies: Anxiety Hematological/Lymphatic: Denies: Blood Clots, Easy bleeding, Easy bruising, Swollen glands Past Medical History - SOCIAL HISTORY Smoking Status: Former smoker - RESPIRATORY Hx Respiratory Disorders: Yes Hx Sleep Apnea: Yes Hx of CPAP: No - CARDIOVASCULAR Hx Cardio Disorders: Yes Hx Abnormal EKG: Yes Hx Cardiac Cath: No Hx Chest Pain: No Hx CHF: No Hx Deep Vein Thrombosis: No Hx Edema: No Hx Heart Attack: No Hx Hypertension: Yes Hx Hypotension: No Hx Irregular Heartbeat: Yes (A-Fib) Hx Palpitations: Yes Hx Pacemaker/Defib: No Hx Vascular Disease: No - NEURO Hx Neuro Disorders: No - GI Hx GI Disorders: Yes Hx Reflux: Yes Hx Ulcer: Yes Hx of Polyps: Yes Comment:: hx of constipation - Hx Genitourinary Disorders: Yes Hx Bladder Problem: Yes (bladder spasms) Comment:: n/a - ENDOCRINE Hx Endocrine Disorders: No Hx Diabetes: No Hx Thyroid Disease: No - MUSCULOSKELETAL Hx Musculoskeletal Disorders: Yes Hx Arthritis: No Hx Back Injury: No Hx Fibromyalgia: No Hx Gout: No Hx Musculoskeletal Disease: No Hx Osteoporosis: No - PSYCH Hx Psych Problems: Yes Hx Anxiety: Yes Hx Behavior Problems: No Hx Depression: Yes Hx Emotional Abuse: No Hx Sexual Abuse: No Hx Suicide Attempt: No - HEMATOLOGY/ONCOLOGY Hx Hematology/Oncology Disorders: No Comment:: Psoriasis Family Medical History Hx Alcohol Use: Father, Mother Hx Anxiety: Father Hx Diabetes: Grandparents *Diabetes Comment: Both Grandmothers. Hx Heart Disease: Mother *Heart Comment: Atrial fib Hx HTN: Father Hx Stroke: Brother/Sister *Stroke Comment: sister had a stroke. Physical Exam - General Limitations: No limitations Course Vital Signs 05/22/17 05/22/17 05/22/17 17:39 18:52 20:05 Temperature 98.1 F Pulse Rate 72 Pulse Rate [ 58 L 69 Membership Advisor ] Respiratory 18 16 20 Rate Blood Pressure 140/82 Blood Pressure 129/75 130/69 [Right Arm] Pulse Ox 97 95 97 05/22/17 05/22/17 21:22 22:12 Temperature Pulse Rate Pulse Rate [ 67 67 Membership Advisor ] Respiratory 14 16 Rate Blood Pressure Blood Pressure 128/68 115/81 [Right Arm] Pulse Ox 96 95 - Reevaluation(s) Reevaluation #1: 05/22/17 22:34 Repeat Troponin is negative for myocardial injury. Patient has been resting comfortably throughout her ED stay, and appears stable for discharge at this time. Medical Decision Making - Lab Data Result diagrams: 05/22/17 18:09 05/22/17 18:09 Lab Results 05/22/17 05/22/17 05/22/17 Range/Units 18:09 18:09 18:09 WBC 7.8 (4.2-12.2) K/uL RBC 4.97 (3.80-5.40) M/uL Hgb 14.8 (11.6-16.0) gm/dl Hct 45.7 (35.0-47.0) % MCV 92.0 (81-97) fl MCH 29.8 (27-33) pg MCHC 32.4 (32-36) g/dl RDW 13.6 (11.5-14.5) % Plt Count 274 (130-400) K/uL MPV 9.8 (7.4-10.4) fl Gran % 69.5 (47-80) % Lymphocytes % 20.4 (16-45) % Monocytes % 8.4 (0-9) % Eosinophils % 1.4 (0-6) % Basophils % 0.3 (0-6) % PT 10.8 (9.5-12.1) SECONDS INR 1.00 APTT 28.90 (24.5-39.1) SECONDS Sodium 140 (136-145) mmol/L Potassium 4.1 (3.4-4.5) mmol/L Chloride 103 (98-107) mmol/L Carbon Dioxide 23.0 (22-29) mmol/L Anion Gap 14.0 (7-16) BUN 15 (6-20) mg/dL Creatinine 0.5 (0.5-0.9) mg/dL Estimated GFR > 60 mL/min Random Glucose 95 (74-109) mg/dL Calcium 9.2 (8.6-10.0) mg/dL Total Bilirubin 0.50 (0.2-1.0) mg/dL AST 18 (10.0-35.0) U/L ALT 14 (<33) U/L Alkaline Phosphatase 98 (35-104) U/L Troponin I < 0.30 (0.00-0.300) ng/mL Total Protein 7.6 (6.6-8.7) g/dL Albumin 3.7 L (4.0-5.0) g/dL Globulin 3.9 (1.4-4.8) gm/dL Albumin/Globulin Ratio 0.9 L (1.1-1.8) Urine Color Urine Appearance Urine pH (5.0-8.0) Ur Specific [place] (1.002-1.030) Urine Protein (NEGATIVE) Urine Glucose (UA) (NEGATIVE) Urine Ketones (NEGATIVE) Urine Blood (NEGATIVE) Urine Nitrite (NEGATIVE) Urine Bilirubin (NEGATIVE) Urine Urobilinogen (0.20 - 1.00) E.U./dL Ur Leukocyte Esterase (NEGATIVE) Urine RBC (NONE SEEN) Urine WBC (0-2/hpf) Ur Epithelial Cells (FEW) 05/22/17 05/22/17 Range/Units 18:09 22:15 WBC (4.2-12.2) K/uL RBC (3.80-5.40) M/uL Hgb (11.6-16.0) gm/dl Hct (35.0-47.0) % MCV (81-97) fl MCH (27-33) pg MCHC (32-36) g/dl RDW (11.5-14.5) % Plt Count (130-400) K/uL MPV (7.4-10.4) fl Gran % (47-80) % Lymphocytes % (16-45) % Monocytes % (0-9) % Eosinophils % (0-6) % Basophils % (0-6) % PT (9.5-12.1) SECONDS INR APTT (24.5-39.1) SECONDS Sodium (136-145) mmol/L Potassium (3.4-4.5) mmol/L Chloride (98-107) mmol/L Carbon Dioxide (22-29) mmol/L Anion Gap (7-16) BUN (6-20) mg/dL Creatinine (0.5-0.9) mg/dL Estimated GFR mL/min Random Glucose (74-109) mg/dL Calcium (8.6-10.0) mg/dL Total Bilirubin (0.2-1.0) mg/dL AST (10.0-35.0) U/L ALT (<33) U/L Alkaline Phosphatase (35-104) U/L Troponin I < 0.30 (0.00-0.300) ng/mL Total Protein (6.6-8.7) g/dL Albumin (4.0-5.0) g/dL Globulin (1.4-4.8) gm/dL Albumin/Globulin Ratio (1.1-1.8) Urine Color Yellow Urine Appearance Clear Urine pH 6.0 (5.0-8.0) Ur Specific [place] 1.020 (1.002-1.030) Urine Protein Negative (NEGATIVE) Urine Glucose (UA) Negative (NEGATIVE) Urine Ketones Trace H (NEGATIVE) Urine Blood Small H (NEGATIVE) Urine Nitrite Negative (NEGATIVE) Urine Bilirubin Negative (NEGATIVE) Urine Urobilinogen 0.2 (0.20 - 1.00) E.U./dL Ur Leukocyte Esterase Negative (NEGATIVE) Urine RBC 7 - 10 (NONE SEEN) Urine WBC 0 - 2 (0-2/hpf) Ur Epithelial Cells 0 - 2 (FEW) Disposition Disposition: Discharge Clinical Impression: Intermittent palpitations Disposition: Home, Self-Care Condition: (2) Stable Instructions: Heart Palpitations (ED) Additional Instructions: Call your slurry control tender tomorrow for close follow up of your symptoms Return if you have any return of the palpitation, racing, shortness of breath Forms: Patient Portal Access Time of Disposition: 22:35 Quality - Quality Measures Quality Measures: N/A - Blood Pressure Screening Does Patient Have Any of the Following: No Blood Pressure Classification: Normal BP Reading Systolic Measurement: 112 Diastolic Measurement: 72 Screening for High Blood Pressure: < Normal BP, F/U Not Required > [G8783]
== END 2017-05-22 22:56 | disposition home or self-care (01) ==
LOC: ER 17:35
DX: R00.2 Palpitations (principal); R06.02 Shortness of breath; I48.91 Unspecified atrial fibrillation; I10 Essential (primary) hypertension; Z87.891 Personal history of nicotine dependence
CPT/HCPCS: 80053; 81001; 84484; 85025; 85610; 85730; 93005; 93010; 99284

== ENCOUNTER 2017-08-06 12:58 | Observation (INO) | payer BC ==
--- NOTE | 2017-08-06 13:29 | Emergency Department Record ---
History of Present Illness - General Chief Complaint: Palpitations Stated Complaint: AFIB,COUGH X WEEK Time Seen by Provider: 08/06/17 13:09 Source: Patient Mode of Arrival: Ambulatory Limitations: No limitations - History of Present Illness Initial Comments: The patient is here due to developing palpitations about an hour ago and feeling like she went back into Afib. She has a long hx of intermittent Afib and has been in it multiple times in the past. She denies any Cp, SOB, JOCELYNE, sweating or dizziness but does feel anxious which is normal for her when this happens. Additionally the patient has been coughing for about a month. MD Complaint: Atrial fibrillation, Palpitations Onset/Timin -: Minutes(s) Arrythmia History: Atrial fibrillation Associated Symptoms: Anxiety - Related Data Allergies Allergy/AdvReac Type Severity Reaction Status Date / Time ciprofloxacin [From Cipro] Allergy Mild LIP Verified 08/06/17 13:13 NUMBNESS ciprofloxacin HCl Allergy Mild LIP Verified 08/06/17 13:13 [From Cipro] NUMBNESS erythromycin base Allergy Unknown VOMITING Verified 08/06/17 13:13 [ERYTHROMYCIN BASE] meperidine [MEPERIDINE] Allergy Unknown ALTERED Verified 08/06/17 13:13 MENTAL STATUS Sulfa (Sulfonamide Allergy Unknown RASH Verified 08/06/17 13:13 Antibiotics) [SULFA (SULFONAMIDE ANTIBIOTICS)] meperidine HCl [From Demerol] AdvReac HYPERSENSIT Verified 08/06/17 13:13 IVITY Travel Screening - Travel/Exposure Within Last 30 Days Have you traveled within the last 30 days?: No - Travel/Exposure Within Last Year Have you traveled outside the [place] in the last year?: No - Additonal Travel Details Have you been exposed to anyone with a communicable illness?: No - Travel Symptoms Symptom Screening: None Review of Systems Constitutional: Denies: Chills, Fever, Malaise Eyes: Denies: Eye discharge ENT: Reports: Congestion Respiratory: Reports: Cough. Denies: Dyspnea Cardiovascular: Denies: Arrhythmia, Paroxysmal nocturnal dyspnea Endocrine: Denies: Fatigue Gastrointestinal: Denies: Abdominal pain Genitourinary: Denies: Dysuria Musculoskeletal: Denies: Back pain Past Medical History - SOCIAL HISTORY Smoking Status: Former smoker Alcohol Use: None Drug Use: None - RESPIRATORY Hx Respiratory Disorders: Yes Hx Sleep Apnea: Yes Hx of CPAP: No - CARDIOVASCULAR Hx Cardio Disorders: Yes Hx Abnormal EKG: Yes Hx Cardiac Cath: No Hx Chest Pain: No Hx CHF: No Hx Deep Vein Thrombosis: No Hx Edema: No Hx Heart Attack: No Hx Hypertension: Yes Hx Hypotension: No Hx Irregular Heartbeat: Yes (A-Fib) Hx Palpitations: Yes Hx Pacemaker/Defib: No Hx Vascular Disease: No - NEURO Hx Neuro Disorders: No - GI Hx GI Disorders: Yes Hx Reflux: Yes Hx Ulcer: Yes Hx of Polyps: Yes Comment:: hx of constipation - Hx Genitourinary Disorders: Yes Hx Bladder Problem: Yes (bladder spasms) Comment:: n/a - ENDOCRINE Hx Endocrine Disorders: No Hx Diabetes: No Hx Thyroid Disease: No - MUSCULOSKELETAL Hx Musculoskeletal Disorders: Yes Hx Arthritis: No Hx Back Injury: No Hx Fibromyalgia: No Hx Gout: No Hx Musculoskeletal Disease: No Hx Osteoporosis: No - PSYCH Hx Psych Problems: Yes Hx Anxiety: Yes Hx Behavior Problems: No Hx Depression: Yes Hx Emotional Abuse: No Hx Sexual Abuse: No Hx Suicide Attempt: No - HEMATOLOGY/ONCOLOGY Hx Hematology/Oncology Disorders: No Comment:: Psoriasis Family Medical History Any Significant Family History?: No Hx Alcohol Use: Father, Mother Hx Anxiety: Father Hx Diabetes: Grandparents *Diabetes Comment: Both Grandmothers. Hx Heart Disease: Mother *Heart Comment: Atrial fib Hx HTN: Father Hx Stroke: Brother/Sister *Stroke Comment: sister had a stroke. Physical Exam - General General Appearance: Alert, Oriented x3, Cooperative, No acute distress - Head Head exam: Atraumatic, Normocephalic, Normal inspection - Eye Eye exam: Normal appearance, PERRL - ENT ENT exam: Normal exam, Mucous membranes moist, Normal external ear exam, Normal orophraynx, TM's normal bilaterally Throat exam: Normal inspection. negative: Tonsillar erythema, Tonsillar exudate - Neck Neck exam: Normal inspection, Full ROM. negative: Tenderness - Respiratory Respiratory exam: Normal lung sounds bilaterally. negative: Respiratory distress - Cardiovascular Cardiovascular Exam: Normal heart sounds, Irregular rhythm - GI/Abdominal GI/Abdominal exam: Soft, Normal bowel sounds. negative: Tenderness - Extremities Extremities exam: Normal inspection, Pedal edema (chronic.) - Neurological Neurological exam: Alert. negative: Motor sensory deficit - Skin Skin exam: negative: Rash Course Vital Signs 08/06/17 13:00 Temperature 97.7 F Pulse Rate 102 H Respiratory 16 Rate Blood Pressure 110/83 Pulse Ox 98 - Reevaluation(s) Reevaluation #1: The patient is doing very well at this time. She is resting comfortably with no pain or discomfort. 08/06/17 14:25 Reevaluation #2: The patient is doing very well at this time. She denies any problems but is still in Afib. 08/06/17 15:05 Reevaluation #3: Due to the patient not converting to NSR I did recommend hospital admission on anticoagulation. The patient is reluctant to take a NOAC at home and is very anxious about it. I did discuss the case with the patient's Cardiology group contracting manager physician Dr. Priest and he believes it would be OK to keep the patient here at [facility]. I then did discuss the case with Dr. Goldman and he is willing to admit the patient. 08/06/17 17:17 Medical Decision Making - Data Complexity MDM Data: Labs Ordered and/or Reviewed, X-Ray Ordered and/or Reviewed, EKG Ordered and/or Reviewed - Lab Data Result diagrams: 08/06/17 13:33 08/06/17 13:33 - EKG Data -: EKG Interpreted by Sd EKG: Unchanged From Previous, Abnormal EKG (Afib at 120. Neg ischemic changes.) - Radiology Data Radiology results: Report reviewed (CXR: L mid lung atelctasis or infiltrate.) Disposition Disposition: Admit Clinical Impression: Atrial fibrillation with controlled ventricular response Pneumonia Qualifiers: Aspiration pneumonia type: unspecified Laterality: left Lung location: unspecified part of lung Disposition: Still a Patient at [facility] Decision to Admit: Admit from ER Decision to Admit Date: 08/06/17 Decision to Admit Time: 17:04 Accepting Physician: Chet Time Discussed w/Accepting Physician: 17:04 Condition: (2) Stable Time of Disposition: 17:04 Quality - Quality Measures Quality Measures: N/A - Blood Pressure Screening View Details: Yes Does Patient Have Any of the Following: No Blood Pressure Classification: Pre-Hypertensive BP Reading Systolic Measurement: 110 Diastolic Measurement: 83 Screening for High Blood Pressure: < Pre-Hypertensive BP, F/U Documented > [ G8950] Pre-Hypertensive Follow-up Interventions: Referral to alternative/primary care provider.
[2017-08-06 13:39] LABS: BASO % 0.1 % (0-6); EOS % 2.6 % (0-6); GRAN % 68.4 % (47-80); HEMATOCRIT 45.5 % (35.0-47.0); HEMOGLOBIN 14.6 gm/dl (11.6-16.0); LYMPH % 20.7 % (16-45); MEAN CELL VOLUME 95.6 fl (81-97); MEAN CORPUSCULAR HEMOGLOBIN 30.7 pg (27-33); MEAN CORPUSCULAR HGB CONC 32.1 g/dl (32-36); MEAN PLATELET VOLUME 8.8 fl (7.4-10.4); MONO % 8.2 % (0-9); PLATELET COUNT 312 K/uL (130-400); RED BLOOD COUNT 4.76 M/uL (3.80-5.40); RED CELL DISTRIBUTION WIDTH 13.1 % (11.5-14.5)
[2017-08-06 13:51] LABS: PARTIAL THROMBOPLASTIN TIME 31.6 SECONDS (24.5-39.1); PROTHROMBIN TIME (PATIENT) 10.8 SECONDS (9.5-12.1)
[2017-08-06 13:56] LABS: BLOOD UREA NITROGEN 17 mg/dL (6-20); CREATININE 0.7 mg/dL (0.5-0.9); EST GLOMERULAR FILTRATION RATE > 60 mL/min
[2017-08-06 13:59] LABS: GLUCOSE,RANDOM 107 mg/dL (74-109)
[2017-08-06 14:02] LABS: CREATINE PHOSPHOKINASE 106 U/L (26-192)
[2017-08-06 14:04] LABS: CKMB 1.7 ng/mL (<3.77)
[2017-08-06 14:12] LABS: THYROID STIMULATING HORMONE 1.16 uIU/mL (0.270-4.20)
[2017-08-06] MEDS ORDERED: DOXYCYCLINE HYCLATE 100 MG CAPSULE PO ONE (16:22)
[2017-08-06] MEDS ORDERED: HEPARIN SODIUM 1000 UNIT/1 ML 10ML VIAL IVP ONE (17:04)
[2017-08-06] MEDS ORDERED: HEPARIN SODIUM/D5W 25,000 UNITS/500 ML BAG IV SCH ×2 (17:15→18:53)
[2017-08-06] MEDS ORDERED: ACETAMINOPHEN 500 MG TABLET PO PRN (18:53)
[2017-08-06] MEDS ORDERED: LORAZEPAM 0.5 MG TABLET PO PRN (18:53)
[2017-08-06] MEDS ORDERED: DILTIAZEM HCL 125 MG in 0.9 % SODIUM CHLORIDE 100ML 100 ML IV SCH (19:15)
[2017-08-06] MEDS: APIXABAN 5MG TABLET PO SCH ×2 (19:16→21:01)
[2017-08-06 21:30] LABS: CKMB 1.7 ng/mL (<3.77)
[2017-08-06] MEDS ORDERED: DOXYCYCLINE HYCLATE 100 MG CAPSULE PO SCH (22:00)
[2017-08-07 06:59] LABS: CKMB 1.4 ng/mL (<3.77)
[2017-08-07] MEDS ORDERED: PANTOPRAZOLE SODIUM 40 MG TABLET PO PRN (07:00)
--- NOTE | 2017-08-07 07:19 | RADIOLOGY REPORT ---
EXAM: CHEST HISTORY: PRODUCTIVE COUGH, FEVER AND CHILLS TODAY. TECHNIQUE: Two views of the chest were obtained. Comparison: 11/29/16. FINDINGS: There is linear atelectasis or infiltrate in the lateral mid left lung. The lungs otherwise are clear. The heart is not enlarged and there is no mediastinal mass. Mild arthritic changes are seen in both shoulders. IMPRESSION: 1. LINEAR AREA OF ATELECTASIS OR INFILTRATE IN THE LEFT MID LUNG. 2. CHEST OTHERWISE UNREMARKABLE. JOB NUMBER: [id number] [facility]
--- NOTE | 2017-08-07 09:53 | History & Physical ---
History of Present Illness - Date of Service Date of Service for History & Physical: 08/07/17 - History of Present Illness Admitting Diagnosis: 1. New Onset Afib with RVR. History of Present Illness: Ms. Taylor is a 56 y/o female who presents with report of cough for the past several days. She says it has been non-productive but persistent and she began to panic when she was in a store causing her to have palpitations. The patient has a history of chronic atrial fibrillation rate controlled on Cardizem 240mg daily. The patient has refused anticoagulation in the past and has only been on aspirin 81mg. On arrival to the ED the patient wsa noted to be in atrial fibrillation with rate 90s - 110s'. She was hesitant to be put on any anticoagulation but was started on heparin drip. The patient was admitted for monitoring on telemetry. On examination this morning the patient is very anxious appearing and does not have very good insight into her condition. She is still concerned about anticoagulation. On monitor she is rate controlled in the 80's and is on Eliquis 5mg PO BID. Travel Screening - Travel/Exposure Within Last 30 Days Have you traveled within the last 30 days?: No - Travel/Exposure Within Last Year Have you traveled outside the [place] in the last year?: No - Additonal Travel Details Have you been exposed to anyone with a communicable illness?: No - Travel Symptoms Symptom Screening: None Review of Systems Constitutional: Denies: Chills, Fever, Malaise Eyes: Denies: Eye discharge ENT: Reports: Congestion Respiratory: Reports: Cough. Denies: Dyspnea Cardiovascular: Denies: Arrhythmia, Paroxysmal nocturnal dyspnea Endocrine: Denies: Fatigue Gastrointestinal: Denies: Abdominal pain Genitourinary: Denies: Dysuria Musculoskeletal: Denies: Back pain Past Medical History - SOCIAL HISTORY Smoking Status: Former smoker Alcohol Use: None Drug Use: None - RESPIRATORY Hx Respiratory Disorders: Yes Hx Sleep Apnea: Yes Hx of CPAP: No - CARDIOVASCULAR Hx Cardio Disorders: Yes Hx Abnormal EKG: Yes Hx Cardiac Cath: No Hx Chest Pain: No Hx CHF: No Hx Deep Vein Thrombosis: No Hx Edema: No Hx Heart Attack: No Hx Hypertension: Yes Hx Hypotension: No Hx Irregular Heartbeat: Yes (A-Fib) Hx Palpitations: Yes Hx Pacemaker/Defib: No Hx Vascular Disease: No - NEURO Hx Neuro Disorders: No - GI Hx GI Disorders: Yes Hx Reflux: Yes Hx Ulcer: Yes Hx of Polyps: Yes Comment:: hx of constipation - Hx Genitourinary Disorders: Yes Hx Bladder Problem: Yes (bladder spasms) Comment:: n/a - ENDOCRINE Hx Endocrine Disorders: No Hx Diabetes: No Hx Thyroid Disease: No - MUSCULOSKELETAL Hx Musculoskeletal Disorders: Yes Hx Arthritis: No Hx Back Injury: No Hx Fibromyalgia: No Hx Gout: No Hx Musculoskeletal Disease: No Hx Osteoporosis: No - PSYCH Hx Psych Problems: Yes Hx Anxiety: Yes Hx Behavior Problems: No Hx Depression: Yes Hx Emotional Abuse: No Hx Sexual Abuse: No Hx Suicide Attempt: No - HEMATOLOGY/ONCOLOGY Hx Hematology/Oncology Disorders: No Comment:: Psoriasis Family Medical History Any Significant Family History?: No Hx Alcohol Use: Father, Mother Hx Anxiety: Father Hx Diabetes: Grandparents *Diabetes Comment: Both Grandmothers. Hx Heart Disease: Mother *Heart Comment: Atrial fib Hx HTN: Father Hx Stroke: Brother/Sister *Stroke Comment: sister had a stroke. H&P Meds/Allergies - Allergies Allergies: Allergies Allergy/AdvReac Type Severity Reaction Status Date / Time ciprofloxacin [From Cipro] Allergy Mild LIP Verified 08/06/17 13:13 NUMBNESS ciprofloxacin HCl Allergy Mild LIP Verified 08/06/17 13:13 [From Cipro] NUMBNESS erythromycin base Allergy Unknown VOMITING Verified 08/06/17 13:13 [ERYTHROMYCIN BASE] meperidine [MEPERIDINE] Allergy Unknown ALTERED Verified 08/06/17 13:13 MENTAL STATUS Sulfa (Sulfonamide Allergy Unknown RASH Verified 08/06/17 13:13 Antibiotics) [SULFA (SULFONAMIDE ANTIBIOTICS)] meperidine HCl [From Demerol] AdvReac HYPERSENSIT Verified 08/06/17 13:13 IVITY - Active Medications Active Medications: Current Medications Acetaminophen (Tylenol 500mg Tab) 500 mg PO Q6H PRN PRN Reason: PAIN/TEMP Apixaban (Eliquis) 5 mg PO BID [facility], [facility]1983 Last Admin: 08/06/17 21:01 Dose: Not Given Aspirin (Ecotrin (Ec)) 81 mg PO DAILY FOR[facility], [facility]1983 Diltiazem HCl (Cardizem Cd) 240 mg PO DAILY [facility], [facility]1983 Doxycycline Hyclate (Vibramycin) 100 mg PO BID [facility], [facility]1983 Last Admin: 08/06/17 21:16 Dose: 100 mg Heparin Sodium/Dextrose (Heparin Sodium/D5w) 25,000 units in 500 mls @ 30.481 mls/hr IV TITRATE WILFRIDO; 12 UNITS/KG/HR PRN Reason: Protocol Last Titration: 08/06/17 20:20 Dose: 0 units/kg/hr, 0 mls/hr Heparin Sodium/Dextrose (Heparin Sodium/D5w) 25,000 units in 500 mls @ 30.481 mls/hr IV TITRATE WILFRIDO; 12 UNITS/KG/HR PRN Reason: Protocol Diltiazem HCl 125 mg/ Sodium (Chloride) 125 mls @ 0 mls/hr IV TITRATE WILFRIDO; As Directed PRN Reason: Protocol Lorazepam (Ativan) 0.5 mg PO Q8HR PRN PRN Reason: anxiety Pantoprazole Sodium (Protonix) 40 mg PO DAILYAC PRN PRN Reason: PRN HEARTBURN Physical Exam - Vital Signs Vital Signs: Vital Signs - Last 24 Hrs Temp Pulse Resp BP Pulse Ox 08/07/17 08:00 98.2 F 67 18 111/69 94 L 08/07/17 04:00 97.8 F 74 18 110/63 95 08/06/17 20:11 77 16 08/06/17 20:00 97.6 F 72 18 113/68 96 08/06/17 18:54 16 08/06/17 18:15 97.6 F 122 H 20 137/82 96 - General General Appearance: Alert, Oriented x3, Cooperative, No acute distress Limitations: No limitations - Head Head exam: Atraumatic, Normocephalic, Normal inspection - Eye Eye exam: Normal appearance, PERRL - ENT ENT exam: Normal exam, Mucous membranes moist, Normal external ear exam, Normal orophraynx, TM's normal bilaterally Throat exam: Normal inspection. negative: Tonsillar erythema, Tonsillar exudate - Neck Neck exam: Normal inspection, Full ROM. negative: Tenderness - Respiratory Respiratory exam: Normal lung sounds bilaterally. negative: Respiratory distress - Cardiovascular Cardiovascular Exam: Normal heart sounds, Irregular rhythm Peripheral Pulses: 2+: Radial (R), Radial (L), Dorsalis Pedis (R), Dorsalis Pedis (L) - GI/Abdominal GI/Abdominal exam: Soft, Normal bowel sounds. negative: Tenderness - Extremities Extremities exam: Normal inspection, Pedal edema (chronic.) - Neurological Neurological exam: Alert. negative: Motor sensory deficit - Skin Skin exam: negative: Rash Results - Labs Result Diagrams: 08/06/17 13:33 08/06/17 13:33 Labs Last 24 Hours: Laboratory Results - last 24 hr 08/06/17 08/07/17 21:05 06:15 CK-MB (CK-2) 1.7 1.4 Troponin T < 0.010 < 0.010 VTE H&P Assessment - Risk for VTE Risk for VTE: Yes Risk Level: High Risk Assessment Date: 08/07/17 Risk Assessment Time: 09:53 VTE Orders Placed or Will Be Placed: Yes Plan - Detailed Diagnosis and Plan (1) Atrial fibrillation Current Visit: No Status: Acute Qualifiers: Atrial fibrillation type: paroxysmal Qualified Code(s): I48.0 - Paroxysmal atrial fibrillation Base Code: I48.91 - UNSPECIFIED ATRIAL FIBRILLATION Comment: - patient is currently in sinus rhythm on telemetry. - Continuing home dose of Cardizem 240mg daily and starting Eliquis 5mg BID. I hada very thorough discussion with the patient about atrial fibrillation and the benefits/risks of anticoagulation. CHADsVac - 2, however aspirin may be more appropriate as I am concerned about patient's reliability. 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 (2) Anxiety Current Visit: No Status: Acute Base Code: F41.9 - ANXIETY DISORDER, UNSPECIFIED Comment: - patient is quite anxious and this is whay likely the impetus for her atrial fibrillation. - Ativan 0.5mg PRN. Patient says that she isn't taken anything else for anxiety at home. (3) DVT prophylaxis Current Visit: Yes Status: Acute Base Code: [id number] - (4) Full code status Current Visit: No Status: Acute Base Code: Z78.9 - OTHER SPECIFIED HEALTH STATUS Comment: FULL CODE - Disposition D/C home today and follow up with cardiology and pcp within 5-10 days.
[2017-08-07] MEDS ORDERED: ASPIRIN 81 MG TABEC PO SCH (10:00)
[2017-08-07] MEDS ORDERED: DILTIAZEM 240 MG CAP CR PO SCH (10:00)
--- NOTE | 2017-08-07 10:09 | Discharge Summary ---
Providers Discharge Summary Date: 08/07/17 Date of admission: 08/06/17 17:51 Attending physician: Salvatore Rosenberg Primary care physician: ALEN DE LA PAZ Physical Exam - Vital Signs Vital Signs: Vital Signs - Last 24 Hrs Temp Pulse Resp BP Pulse Ox 08/07/17 08:00 98.2 F 67 18 111/69 94 L 08/07/17 04:00 97.8 F 74 18 110/63 95 08/06/17 20:11 77 16 08/06/17 20:00 97.6 F 72 18 113/68 96 08/06/17 18:54 16 08/06/17 18:15 97.6 F 122 H 20 137/82 96 - General General Appearance: Alert, Oriented x3, Cooperative, No acute distress Limitations: No limitations - Head Head exam: Atraumatic, Normocephalic, Normal inspection - Eye Eye exam: Normal appearance, PERRL - ENT ENT exam: Normal exam, Mucous membranes moist, Normal external ear exam, Normal orophraynx, TM's normal bilaterally Throat exam: Normal inspection. negative: Tonsillar erythema, Tonsillar exudate - Neck Neck exam: Normal inspection, Full ROM. negative: Tenderness - Respiratory Respiratory exam: Normal lung sounds bilaterally. negative: Respiratory distress - Cardiovascular Cardiovascular Exam: Normal heart sounds, Irregular rhythm Peripheral Pulses: 2+: Radial (R), Radial (L), Dorsalis Pedis (R), Dorsalis Pedis (L) - GI/Abdominal GI/Abdominal exam: Soft, Normal bowel sounds. negative: Tenderness - Extremities Extremities exam: Normal inspection, Pedal edema (chronic.) - Neurological Neurological exam: Alert. negative: Motor sensory deficit - Psychiatric Psychiatric exam: Anxious - Skin Skin exam: negative: Rash Hospitalization - Hospitalization Admission Diagnosis: 1. New Onset Afib with RVR. - Problem List/Discharge Diagnosis (1) Atrial fibrillation Current Visit: No Status: Acute Discharge Diagnosis: Atrial fibrillation type: paroxysmal Qualified Code(s): I48.0 - Paroxysmal atrial fibrillation Base Code: I48.91 - UNSPECIFIED ATRIAL FIBRILLATION Comment: - patient is currently in sinus rhythm on telemetry. - Continuing home dose of Cardizem 240mg daily and starting Eliquis 5mg BID. I hada very thorough discussion with the patient about atrial fibrillation and the benefits/risks of anticoagulation. CHADsVac - 2, however aspirin may be more appropriate as I am concerned about patient's reliability. - The patient is to follow up with he hat checker Dr. Hughes and her PCP regarding further care. (2) Anxiety Current Visit: No Status: Acute Base Code: F41.9 - ANXIETY DISORDER, UNSPECIFIED Comment: - patient is quite anxious and this is whay likely the impetus for her atrial fibrillation. - Ativan 0.5mg PRN. Patient says that she isn't taken anything else for anxiety at home. (3) DVT prophylaxis Current Visit: Yes Status: Acute Base Code: [id number] - (4) Full code status Current Visit: No Status: Acute Base Code: Z78.9 - OTHER SPECIFIED HEALTH STATUS Comment: FULL CODE (5) Pneumonia Current Visit: Yes Status: Acute Discharge Diagnosis: Aspiration pneumonia type: unspecified Laterality: left Lung location: unspecified part of lung Base Code: J18.9 - PNEUMONIA, UNSPECIFIED ORGANISM Comment: - possible left lower lobe infiltrate on xray. - No SIRS met, doxycycline 100mg Q12H - Disposition D/C home today and follow up with cardiology and pcp within 5-10 days. - Hospitalization Course Disposition: Home, Self-Care Hospital Course: Ms. Taylor is a 56 y/o female who presents with report of cough for the past several days. She says it has been non-productive but persistent and she began to panic when she was in a store causing her to have palpitations. The patient has a history of chronic atrial fibrillation rate controlled on Cardizem 240mg daily. The patient has refused anticoagulation in the past and has only been on aspirin 81mg. On arrival to the ED the patient wsa noted to be in atrial fibrillation with rate 90s - 110s'. She was hesitant to be put on any anticoagulation but was started on heparin drip. The patient was admitted for monitoring on telemetry. On examination this morning the patient is very anxious appearing and does not have very good insight into her condition. She is still concerned about anticoagulation. On monitor she is rate controlled in the 80's and is on Eliquis 5mg PO BID. 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 Condition at Discharge: (2) Stable Discharge Medications - Discharge Medications Prescriptions: Apixaban [Eliquis] 5 mg PO BID #20 tablet Home Medications: Ambulatory Orders Esomeprazole Magnesium [Nexium 24Hr] 22.3 mg PO DAILY PRN 03/18/15 [Last Taken 05/22/17] Diltiazem HCl [Diltiazem 24Hr ER] 240 mg PO DAILY 11/21/16 [Last Taken 08/06/17] Aspirin [Aspir-Low] 81 mg PO DAILY 11/29/16 [Last Taken 08/05/17] Lorazepam [Ativan] 0.5 mg PO Q8HR PRN 05/05/17 [Last Taken 05/05/17] Apixaban [Eliquis] 5 mg PO BID #20 tablet 08/07/17 [Last Taken Unknown] Aspirin Enteric-Coated [Ecotrin (EC)] 81 mg PO DAILY tabec 08/07/17 [Last Taken Unknown] Discharge Plan - Discharge Instructions Activity at Discharge: Resume Usual Activities As Tolerated Diet at Discharge: Regular Diet Quality Measures - Quality Measures Quality Measures: Atrial Fibrillation & Atrial Flutter: Chronic Anticoagulation Therapy, Documentation of Current Medications in Medical Record, Screening for High Blood Pressure and F/U Documented - Current Medications Quality Measure: Measure #130: Documentation of Current Medications Documentation of Current Medications: <Current Medications Documented/Reviewed> [G8427] - Blood Pressure Screening Quality Measure: Screening for High Blood Pressure and Follow-Up Documented Does Patient Have Any of the Following: Active Dx of HTN Blood Pressure Classification: Pre-Hypertensive BP Reading Systolic Measurement: 110 Diastolic Measurement: 83 Screening for High Blood Pressure: Patient Exclusion, Hx of HTN [G9744] - Atrial Fibrillation and Atrial Flutter Quality Measure: Atrial Fibrillation & Atrial Flutter: Chronic Anticoagulation Therapy Does Patient Have Any of the Following: No CHADS2 Risk Stratification: Hypertension Risk Stratification Summary: No risk factors or only one moderate risk factor exists. [G8970] Anticoagulation Therapy: Patient Not Eligible [G8970] - Elder Abuse Suspicion Index EASI Reference Information: Xiomara PEARSON, Sam C, Shawn D, Sohan Power.Development and validation of a tool to assist physicians identification of elder abuse: The Elder Abuse Suspicion Index (EASI ). Journal of Elder Abuse and Neglect, 2008; 20 (3): 276-300.
== END 2017-08-07 11:00 | disposition home or self-care (01) ==
LOC: ER 12:58 → MEDSURG 17:51
PROVIDERS: ADMIT Internal Medicine; ATTEND Internal Medicine
DX: I48.0 Paroxysmal atrial fibrillation (principal); F41.9 Anxiety disorder, unspecified; I10 Essential (primary) hypertension
CPT/HCPCS: 71020; 80048; 82550; 82553; 84443; 84484; 85025; 85610; 85730; 93005; 93010; 96365; 96366; 96375; 99220; 99285

== ENCOUNTER 2017-08-20 10:21 | Emergency (ER) | payer BC ==
[2017-08-20] MEDS ORDERED: ASPIRIN 81 MG CHEWABLE TABLET PO ONE (10:33)
--- NOTE | 2017-08-20 10:33 | Emergency Department Record ---
History of Present Illness - General Chief Complaint: Chest Pain Stated Complaint: HAD CHEST PRESSURE/ BURNING UP HER BACK Time Seen by Provider: 08/20/17 10:26 Source: Patient Mode of Arrival: Ambulatory Limitations: No limitations - History of Present Illness Initial Comments: 56 yo female presents to ED for evaluation of chest pain symptoms that occurred approximately 8 hours ago. Patient describes her pain symptoms as "pressure" with a "hot sensation in my back". Patient reports history of atrial fibrillation, denies known history of CAD or previous stent placement. Patient denies recent stress testing or heart cath in the last several years. MD Complaint: Chest pain Onset/Timin -: Hour(s) Pain Location: Substernal Pain Radiation: Back Severity: Moderate Quality: Other ("pressure") Improves With: Nothing Worsens With: Nothing - Related Data Previous Rx's Medication Instructions Recorded Apixaban [Eliquis] 5 mg PO BID #20 tablet 08/07/17 Allergies Allergy/AdvReac Type Severity Reaction Status Date / Time ciprofloxacin [From Cipro] Allergy Mild LIP Verified 08/20/17 10:38 NUMBNESS ciprofloxacin HCl Allergy Mild LIP Verified 08/20/17 10:38 [From Cipro] NUMBNESS erythromycin base Allergy Unknown VOMITING Verified 08/20/17 10:38 [ERYTHROMYCIN BASE] meperidine [MEPERIDINE] Allergy Unknown ALTERED Verified 08/20/17 10:38 MENTAL STATUS Sulfa (Sulfonamide Allergy Unknown RASH Verified 08/20/17 10:38 Antibiotics) [SULFA (SULFONAMIDE ANTIBIOTICS)] meperidine HCl [From Demerol] AdvReac HYPERSENSIT Verified 08/20/17 10:38 IVITY Review of Systems Constitutional: Denies: Chills, Fever, Malaise, Night sweats Eyes: Denies: Eye discharge, Eye pain ENT: Denies: Congestion, Ear pain, Epistaxis Respiratory: Denies: Cough, Dyspnea Cardiovascular: Reports: Chest pain. Denies: Edema Endocrine: Denies: Fatigue, Heat or cold intolerance Gastrointestinal: Denies: Abdominal pain, Nausea, Vomiting Genitourinary: Denies: Incontinence, Retention Musculoskeletal: Denies: Arthralgia, Back pain, Gout, Joint swelling Skin: Denies: Bruising, Change in color Neurological: Denies: Abnormal gait, Confusion, Headache, Seizure Psychiatric: Denies: Anxiety Hematological/Lymphatic: Reports: Easy bleeding, Easy bruising. Denies: Anemia , Blood Clots Past Medical History - SOCIAL HISTORY Smoking Status: Former smoker Drug Use: None - RESPIRATORY Hx Respiratory Disorders: Yes Hx Sleep Apnea: Yes Hx of CPAP: No - CARDIOVASCULAR Hx Cardio Disorders: Yes Hx Abnormal EKG: Yes Hx Cardiac Cath: No Hx Chest Pain: No Hx CHF: No Hx Deep Vein Thrombosis: No Hx Edema: No Hx Heart Attack: No Hx Hypertension: Yes Hx Hypotension: No Hx Irregular Heartbeat: Yes (A-Fib) Hx Palpitations: Yes Hx Pacemaker/Defib: No Hx Vascular Disease: No - NEURO Hx Neuro Disorders: No - GI Hx GI Disorders: Yes Hx Reflux: Yes Hx Ulcer: Yes Hx of Polyps: Yes Comment:: hx of constipation - Hx Genitourinary Disorders: Yes Hx Bladder Problem: Yes (bladder spasms) Comment:: n/a - ENDOCRINE Hx Endocrine Disorders: No Hx Diabetes: No Hx Thyroid Disease: No - MUSCULOSKELETAL Hx Musculoskeletal Disorders: Yes Hx Arthritis: No Hx Back Injury: No Hx Fibromyalgia: No Hx Gout: No Hx Musculoskeletal Disease: No Hx Osteoporosis: No - PSYCH Hx Psych Problems: Yes Hx Anxiety: Yes Hx Behavior Problems: No Hx Depression: Yes Hx Emotional Abuse: No Hx Sexual Abuse: No Hx Suicide Attempt: No - HEMATOLOGY/ONCOLOGY Hx Hematology/Oncology Disorders: No Comment:: Psoriasis Family Medical History Hx Alcohol Use: Father, Mother Hx Anxiety: Father Hx Diabetes: Grandparents *Diabetes Comment: Both Grandmothers. Hx Heart Disease: Mother *Heart Comment: Atrial fib Hx HTN: Father Hx Stroke: Brother/Sister *Stroke Comment: sister had a stroke. Physical Exam - General General Appearance: Alert, Oriented x3, Cooperative, No acute distress Limitations: No limitations - Head Head exam: Atraumatic, Normocephalic, Normal inspection Head exam detail: negative: Abrasion, Contusion, Dickinson's sign, General tenderness, Hematoma, Laceration - Eye Eye exam: Normal appearance. negative: Conjunctival injection, Periorbital swelling, Periorbital tenderness, Scleral icterus - ENT Ear exam: negative: Auricular hematoma, Auricular trauma Nasal Exam: negative: Active bleeding, Discharge, Dried blood, Foreign body Mouth exam: negative: Drooling, Laceration, Tongue elevation - Neck Neck exam: Normal inspection. negative: Meningismus, Tenderness - Respiratory Respiratory exam: Normal lung sounds bilaterally. negative: Rales, Respiratory distress, Rhonchi, Stridor - Cardiovascular Cardiovascular Exam: Regular rate, Normal rhythm, Normal heart sounds - GI/Abdominal GI/Abdominal exam: Soft. negative: Rebound, Rigid, Tenderness - Rectal Rectal exam: Deferred - exam: Deferred - Extremities Extremities exam: Normal inspection. negative: Calf tenderness, Pedal edema, Tenderness - Back Back exam: Denies: CVA tenderness (R), CVA tenderness (L) - Neurological Neurological exam: Alert, Normal gait, Oriented X3 - Psychiatric Psychiatric exam: Normal affect, Normal mood - Skin Skin exam: Normal color. negative: Abrasion Type of lesion: negative: abrasion Course - Reevaluation(s) Reevaluation #1: 08/20/17 10:48 EKG: NSR 62 Normal axis, normal intervals T wave inversion III, no acute ST-T wave changes. Reevaluation #2: 08/20/17 11:45 Labs reviewed and are grossly unremarkable for an acute process. HEART score tabulated, patient scores a "2" (HTN, Age) (risk of 0.9-1.7%). Patient has not had any pain or chest discomfort symptoms in 9+ hours, single Troponin is sufficient to exclude myocardial injury. 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 Reevaluation #3: 08/20/17 12:26 CXR: No acute process Patient was updated on all results, and appears stable for discharge at this time with outpatient cardiac follow-up. Medical Decision Making - Lab Data Result diagrams: 08/20/17 10:52 08/20/17 10:52 Disposition Disposition: Discharge Clinical Impression: Chest pain Qualifiers: Chest pain type: unspecified Qualified Code(s): R07.9 - Chest pain, unspecified Disposition: Home, Self-Care Condition: (2) Stable Instructions: Chest Pain (ED) Additional Instructions: Return to ED if your symptoms reoccur or if you have any concerns. Follow-up with [facility] in 1-3 days as directed. Forms: Patient Portal Access Time of Disposition: 11:54 Quality - Quality Measures Quality Measures: N/A - Blood Pressure Screening Does Patient Have Any of the Following: Active Dx of HTN Blood Pressure Classification: Pre-Hypertensive BP Reading Systolic Measurement: 148 Diastolic Measurement: 86 Screening for High Blood Pressure: Patient Exclusion, Hx of HTN [G9595]
[2017-08-20 11:09] LABS: BASO % 0.1 % (0-6); EOS % 1.2 % (0-6); GRAN % 66.3 % (47-80); HEMATOCRIT 46.1 % (35.0-47.0); HEMOGLOBIN 14.4 gm/dl (11.6-16.0); LYMPH % 25.2 % (16-45); MEAN CELL VOLUME 95.1 fl (81-97); MEAN CORPUSCULAR HEMOGLOBIN 29.7 pg (27-33); MEAN CORPUSCULAR HGB CONC 31.2 g/dl (32-36); MEAN PLATELET VOLUME 9.5 fl (7.4-10.4); MONO % 7.2 % (0-9); PLATELET COUNT 271 K/uL (130-400); RED BLOOD COUNT 4.85 M/uL (3.80-5.40); RED CELL DISTRIBUTION WIDTH 13.3 % (11.5-14.5); WHITE BLOOD COUNT W/O DIFF 6.7 K/uL (4.2-12.2)
[2017-08-20 11:31] LABS: BLOOD UREA NITROGEN 15 mg/dL (6-20); CREATININE 0.5 mg/dL (0.5-0.9); EST GLOMERULAR FILTRATION RATE > 60 mL/min
[2017-08-20 11:32] LABS: TOTAL PROTEIN 7.8 g/dL (6.6-8.7)
[2017-08-20 11:34] LABS: GLUCOSE,RANDOM 97 mg/dL (74-109)
[2017-08-20 11:36] LABS: ALT/SGPT 15 U/L (<33)
[2017-08-20 11:37] LABS: ALB/GLOB RATIO 1.1 (1.1-1.8); ALKALINE PHOSPHATASE 94 U/L (35-104); AST/SGOT 16 U/L (10.0-35.0); CREATINE PHOSPHOKINASE 90 U/L (26-192)
[2017-08-20 11:39] LABS: CKMB 1.8 ng/mL (<3.77)
--- NOTE | 2017-08-22 00:34 | RADIOLOGY REPORT ---
EXAM: CHEST 2 VIEWS HISTORY: CHEST PAIN AND PRESSURE. TECHNIQUE: PA and lateral upright views of the chest were obtained. COMPARISON: 08/06/2017. FINDINGS: There are low lung volumes. The heart, mediastinum, and pulmonary vasculature are normal. There is stable linear scarring within the left mid lung. There are no acute infiltrates or effusions. There is no pneumothorax. The bones appear intact. IMPRESSION: STABLE CHEST WITH NO ACUTE PROCESS IDENTIFIED. JOB NUMBER: [id number] MTDD
== END 2017-08-20 12:55 | disposition home or self-care (01) ==
LOC: ER 10:21
DX: R07.89 Other chest pain (principal); I48.91 Unspecified atrial fibrillation; I10 Essential (primary) hypertension; Z87.891 Personal history of nicotine dependence
CPT/HCPCS: 71020; 80053; 82550; 82553; 84484; 85025; 93005; 93010; 99284

== ENCOUNTER 2017-10-31 17:29 | Emergency (ER) | payer BC ==
[2017-10-31] MEDS ORDERED: MECLIZINE 25 MG TABLET PO ONE (18:07)
--- NOTE | 2017-10-31 18:25 | Emergency Department Record ---
History of Present Illness - General Chief Complaint: Dizziness Stated Complaint: DIZINESS Time Seen by Provider: 10/31/17 17:46 Source: Patient Mode of Arrival: Wheelchair Limitations: No limitations - History of Present Illness Initial Comments: pt states she was on the couch when she had a sudden onset of feeling like her head was spinning. it lasted a few minutes and is getting better now. she also had a transient aching in her l tmj MD Complaint: Dizziness, Lightheadedness Onset/Timin -: Hour(s) Timing: Sudden onset Description: "Room spinning", Sense of movement History of Same: No Improves With: Nothing Worsens With: Nothing - Mame Coma Scale Eye Response: (4) Open spontaneously Motor Response: (6) Obeys commands Verbal Response: (5) Oriented [place] Total: 15 - Symptoms of Stroke Symptoms of stroke: Vertigo - Related Data Home Medications Medication Instructions Recorded Confirmed Last Taken Rivaroxaban [Xarelto] 20 mg PO ASDIR 10/31/17 10/31/17 10/31/17 Previous Rx's Medication Instructions Recorded Meclizine HCl [Antivert] 25 mg PO BID #10 tab 10/31/17 Allergies Allergy/AdvReac Type Severity Reaction Status Date / Time ciprofloxacin [From Cipro] Allergy Mild LIP Verified 10/31/17 17:38 NUMBNESS ciprofloxacin HCl Allergy Mild LIP Verified 10/31/17 17:38 [From Cipro] NUMBNESS erythromycin base Allergy Unknown VOMITING Verified 10/31/17 17:38 [ERYTHROMYCIN BASE] meperidine [MEPERIDINE] Allergy Unknown ALTERED Verified 10/31/17 17:38 MENTAL STATUS Sulfa (Sulfonamide Allergy Unknown RASH Verified 10/31/17 17:38 Antibiotics) [SULFA (SULFONAMIDE ANTIBIOTICS)] meperidine HCl [From Demerol] AdvReac HYPERSENSIT Verified 10/31/17 17:38 IVITY Travel Screening - Travel/Exposure Within Last 30 Days Have you traveled within the last 30 days?: No - Travel/Exposure Within Last Year Have you traveled outside the [place] in the last year?: No - Additonal Travel Details Have you been exposed to anyone with a communicable illness?: No - Travel Symptoms Symptom Screening: None Past Medical History - SOCIAL HISTORY Smoking Status: Former smoker Alcohol Use: None Drug Use: None - RESPIRATORY Hx Respiratory Disorders: Yes Hx Sleep Apnea: Yes Hx of CPAP: No - CARDIOVASCULAR Hx Cardio Disorders: Yes Hx Abnormal EKG: Yes Hx Cardiac Cath: No Hx Chest Pain: No Hx CHF: No Hx Deep Vein Thrombosis: No Hx Edema: No Hx Heart Attack: No Hx Hypertension: Yes Hx Hypotension: No Hx Irregular Heartbeat: Yes (A-Fib) Hx Palpitations: Yes Hx Pacemaker/Defib: No Hx Vascular Disease: No - NEURO Hx Neuro Disorders: No - GI Hx GI Disorders: Yes Hx Reflux: Yes Hx Ulcer: Yes Hx of Polyps: Yes Comment:: hx of constipation - Hx Genitourinary Disorders: Yes Hx Bladder Problem: Yes (bladder spasms) Comment:: n/a - ENDOCRINE Hx Endocrine Disorders: No Hx Diabetes: No Hx Thyroid Disease: No - MUSCULOSKELETAL Hx Musculoskeletal Disorders: Yes Hx Arthritis: No Hx Back Injury: No Hx Fibromyalgia: No Hx Gout: No Hx Musculoskeletal Disease: No Hx Osteoporosis: No - PSYCH Hx Psych Problems: Yes Hx Anxiety: Yes Hx Behavior Problems: No Hx Depression: Yes Hx Emotional Abuse: No Hx Sexual Abuse: No Hx Suicide Attempt: No - HEMATOLOGY/ONCOLOGY Hx Hematology/Oncology Disorders: No Comment:: Psoriasis Family Medical History Any Significant Family History?: Yes Hx Alcohol Use: Father, Mother Hx Anxiety: Father Hx Diabetes: Grandparents *Diabetes Comment: Both Grandmothers. Hx Heart Disease: Mother *Heart Comment: Atrial fib Hx HTN: Father Hx Stroke: Brother/Sister *Stroke Comment: sister had a stroke. Course Vital Signs 10/31/17 17:41 Temperature 98.2 F Pulse Rate 76 Respiratory 18 Rate Blood Pressure 146/76 Pulse Ox 97 - Reevaluation(s) Reevaluation #1: 10/31/17 19:19 pt feels much better. she states she did have sinus congestion a few weeks ago but it is getting much better Medical Decision Making - Lab Data Result diagrams: 10/31/17 18:34 10/31/17 18:34 Disposition Disposition: Discharge Clinical Impression: Vertigo Benign positional vertigo Qualifiers: Laterality: unspecified laterality Qualified Code(s): H81.10 - Benign paroxysmal vertigo, unspecified ear Disposition: Home, Self-Care Condition: (1) Good Instructions: Vertigo (ED), Benign Paroxysmal Positional Vertigo (ED) Additional Instructions: follow up with family doctor. return sooner if worse. Prescriptions: Meclizine HCl [Antivert] 25 mg PO BID #10 tab Forms: Patient Portal Access Quality - Quality Measures Quality Measures: N/A - Blood Pressure Screening Does Patient Have Any of the Following: Active Dx of HTN Blood Pressure Classification: Hypertensive Reading Systolic Measurement: 146 Diastolic Measurement: 76 Screening for High Blood Pressure: Patient Exclusion, Hx of HTN [G9744]
[2017-10-31 18:41] LABS: URINE APPEARANCE CLEAR; URINE BILIRUBIN NEGATIVE (NEGATIVE); URINE BLOOD TRACE-I (NEGATIVE); URINE COLOR YELLOW; URINE GLUCOSE (UA) NEGATIVE (NEGATIVE); URINE KETONE NEGATIVE (NEGATIVE); URINE LEUKOCYTE ESTERASE NEGATIVE (NEGATIVE); URINE NITRITE NEGATIVE (NEGATIVE); URINE PROTEIN NEGATIVE (NEGATIVE); URINE UROBILINOGEN 0.2 E.U./dL (0.20 - 1.00)
[2017-10-31 18:42] LABS: BASO % 0.3 % (0-6); EOS % 2.5 % (0-6); GRAN % 64.6 % (47-80); HEMATOCRIT 43.8 % (35.0-47.0); HEMOGLOBIN 13.9 gm/dl (11.6-16.0); LYMPH % 23.3 % (16-45); MEAN CELL VOLUME 94.4 fl (81-97); MEAN CORPUSCULAR HGB CONC 31.7 g/dl (32-36); MONO % 9.3 % (0-9); PLATELET COUNT 292 K/uL (130-400); RED BLOOD COUNT 4.64 M/uL (3.80-5.40); RED CELL DISTRIBUTION WIDTH 13.5 % (11.5-14.5); WHITE BLOOD COUNT W/O DIFF 6.9 K/uL (4.2-12.2)
[2017-10-31 18:44] LABS: URINE BACTERIA NONE SEEN; URINE EPITHELIAL CELLS 0 - 2 (FEW); URINE RBC 0 - 2 (NONE SEEN); URINE WBC 0 - 2 (0-2/hpf)
[2017-10-31 19:07] LABS: BLOOD UREA NITROGEN 21 mg/dL (6-20); CREATININE 0.6 mg/dL (0.5-0.9); EST GLOMERULAR FILTRATION RATE > 60 mL/min; GLUCOSE,RANDOM 91 mg/dL (74-109)
--- NOTE | 2017-11-02 07:06 | Emergency Department Record ---
History of Present Illness - General Chief Complaint: Dizziness Stated Complaint: DIZINESS Time Seen by Provider: 10/31/17 17:46 Source: Patient Mode of Arrival: Wheelchair Limitations: No limitations - History of Present Illness Onset/Timin -: Hour(s) Timing: Sudden onset Description: "Room spinning", Sense of movement History of Same: No Improves With: Nothing Worsens With: Nothing - Mame Coma Scale Eye Response: (4) Open spontaneously Motor Response: (6) Obeys commands Verbal Response: (5) Oriented [place] Total: 15 - Symptoms of Stroke Symptoms of stroke: Vertigo - Related Data Home Medications Medication Instructions Recorded Confirmed Last Taken Rivaroxaban [Xarelto] 20 mg PO ASDIR 10/31/17 10/31/17 10/31/17 Previous Rx's Medication Instructions Recorded Meclizine HCl [Antivert] 25 mg PO BID #10 tab 10/31/17 Allergies Allergy/AdvReac Type Severity Reaction Status Date / Time ciprofloxacin [From Cipro] Allergy Mild LIP Verified 10/31/17 17:38 NUMBNESS ciprofloxacin HCl Allergy Mild LIP Verified 10/31/17 17:38 [From Cipro] NUMBNESS erythromycin base Allergy Unknown VOMITING Verified 10/31/17 17:38 [ERYTHROMYCIN BASE] meperidine [MEPERIDINE] Allergy Unknown ALTERED Verified 10/31/17 17:38 MENTAL STATUS Sulfa (Sulfonamide Allergy Unknown RASH Verified 10/31/17 17:38 Antibiotics) [SULFA (SULFONAMIDE ANTIBIOTICS)] meperidine HCl [From Demerol] AdvReac HYPERSENSIT Verified 10/31/17 17:38 IVITY Travel Screening - Travel/Exposure Within Last 30 Days Have you traveled within the last 30 days?: No - Travel/Exposure Within Last Year Have you traveled outside the [place] in the last year?: No - Additonal Travel Details Have you been exposed to anyone with a communicable illness?: No - Travel Symptoms Symptom Screening: None Past Medical History - SOCIAL HISTORY Smoking Status: Former smoker Alcohol Use: None Drug Use: None - RESPIRATORY Hx Respiratory Disorders: Yes Hx Sleep Apnea: Yes Hx of CPAP: No - CARDIOVASCULAR Hx Cardio Disorders: Yes Hx Abnormal EKG: Yes Hx Cardiac Cath: No Hx Chest Pain: No Hx CHF: No Hx Deep Vein Thrombosis: No Hx Edema: No Hx Heart Attack: No Hx Hypertension: Yes Hx Hypotension: No Hx Irregular Heartbeat: Yes (A-Fib) Hx Palpitations: Yes Hx Pacemaker/Defib: No Hx Vascular Disease: No - NEURO Hx Neuro Disorders: No - GI Hx GI Disorders: Yes Hx Reflux: Yes Hx Ulcer: Yes Hx of Polyps: Yes Comment:: hx of constipation - Hx Genitourinary Disorders: Yes Hx Bladder Problem: Yes (bladder spasms) Comment:: n/a - ENDOCRINE Hx Endocrine Disorders: No Hx Diabetes: No Hx Thyroid Disease: No - MUSCULOSKELETAL Hx Musculoskeletal Disorders: Yes Hx Arthritis: No Hx Back Injury: No Hx Fibromyalgia: No Hx Gout: No Hx Musculoskeletal Disease: No Hx Osteoporosis: No - PSYCH Hx Psych Problems: Yes Hx Anxiety: Yes Hx Behavior Problems: No Hx Depression: Yes Hx Emotional Abuse: No Hx Sexual Abuse: No Hx Suicide Attempt: No - HEMATOLOGY/ONCOLOGY Hx Hematology/Oncology Disorders: No Comment:: Psoriasis Family Medical History Any Significant Family History?: Yes Hx Alcohol Use: Father, Mother Hx Anxiety: Father Hx Diabetes: Grandparents *Diabetes Comment: Both Grandmothers. Hx Heart Disease: Mother *Heart Comment: Atrial fib Hx HTN: Father Hx Stroke: Brother/Sister *Stroke Comment: sister had a stroke. Physical Exam - General General Appearance: Alert, Oriented x3, Cooperative, No acute distress Limitations: No limitations - Head Head exam: Normal inspection - Eye Eye exam: Normal appearance, PERRL, EOMI Pupils: Normal accommodation - ENT ENT exam: Normal exam, Mucous membranes moist, Normal external ear exam, Normal orophraynx, TM's normal bilaterally Ear exam: Normal external inspection. negative: External canal tenderness Nasal Exam: Normal inspection. negative: Discharge, Sinus tenderness Mouth exam: Normal external inspection, Tongue normal Teeth exam: Normal inspection. negative: Dental caries Throat exam: Normal inspection. negative: Tonsillar erythema, Tonsillar exudate - Neck Neck exam: Normal inspection, Full ROM. negative: Tenderness - Respiratory Respiratory exam: Normal lung sounds bilaterally. negative: Respiratory distress - Cardiovascular Cardiovascular Exam: Regular rate, Normal rhythm, Normal heart sounds - GI/Abdominal GI/Abdominal exam: Soft, Normal bowel sounds. negative: Tenderness - Rectal Rectal exam: Deferred - exam: Deferred - Extremities Extremities exam: Normal inspection, Full ROM, Normal capillary refill. negative: Tenderness - Back Back exam: Reports: Normal inspection, Full ROM. Denies: Muscle spasm, Rash noted, Tenderness - Neurological Neurological exam: Alert, CN II-XII intact, Normal gait, Oriented X3 - Psychiatric Psychiatric exam: Normal affect, Normal mood - Skin Skin exam: Dry, Intact, Normal color, Warm Course Vital Signs 10/31/17 10/31/17 10/31/17 17:41 19:24 19:28 Temperature 98.2 F 98.2 F 98.2 F Pulse Rate 76 76 Pulse Rate [ 70 [employer]ist ] Respiratory 18 Rate Blood Pressure 146/76 146/76 Blood Pressure 125/72 [Left Arm] Pulse Ox 97 97 97 Medical Decision Making - Lab Data Result diagrams: 10/31/17 18:34 10/31/17 18:34 Lab Results 10/31/17 10/31/17 10/31/17 Range/Units 18:34 18:34 18:34 WBC 6.9 (4.2-12.2) K/uL RBC 4.64 (3.80-5.40) M/uL Hgb 13.9 (11.6-16.0) gm/dl Hct 43.8 (35.0-47.0) % MCV 94.4 (81-97) fl MCH 30.0 (27-33) pg MCHC 31.7 L (32-36) g/dl RDW 13.5 (11.5-14.5) % Plt Count 292 (130-400) K/uL MPV 9.0 (7.4-10.4) fl Gran % 64.6 (47-80) % Lymphocytes % 23.3 (16-45) % Monocytes % 9.3 H (0-9) % Eosinophils % 2.5 (0-6) % Basophils % 0.3 (0-6) % Sodium 140 (136-145) mmol/L Potassium 4.4 (3.4-4.5) mmol/L Chloride 103 (98-107) mmol/L Carbon Dioxide 26.0 (22-29) mmol/L Anion Gap 11.0 (7-16) BUN 21 H (6-20) mg/dL Creatinine 0.6 (0.5-0.9) mg/dL Estimated GFR > 60 mL/min Random Glucose 91 (74-109) mg/dL Calcium 8.8 (8.6-10.0) mg/dL Troponin T < 0.010 (0-0.010) ng/mL Urine Color Urine Appearance Urine pH (5.0-8.0) Ur Specific [place] (1.002-1.030) Urine Protein (NEGATIVE) Urine Glucose (UA) (NEGATIVE) Urine Ketones (NEGATIVE) Urine Blood (NEGATIVE) Urine Nitrite (NEGATIVE) Urine Bilirubin (NEGATIVE) Urine Urobilinogen (0.20 - 1.00) E.U./dL Ur Leukocyte Esterase (NEGATIVE) Urine RBC (NONE SEEN) Urine WBC (0-2/hpf) Ur Epithelial Cells (FEW) Urine Bacteria 10/31/17 Range/Units 18:34 WBC (4.2-12.2) K/uL RBC (3.80-5.40) M/uL Hgb (11.6-16.0) gm/dl Hct (35.0-47.0) % MCV (81-97) fl MCH (27-33) pg MCHC (32-36) g/dl RDW (11.5-14.5) % Plt Count (130-400) K/uL MPV (7.4-10.4) fl Gran % (47-80) % Lymphocytes % (16-45) % Monocytes % (0-9) % Eosinophils % (0-6) % Basophils % (0-6) % Sodium (136-145) mmol/L Potassium (3.4-4.5) mmol/L Chloride (98-107) mmol/L Carbon Dioxide (22-29) mmol/L Anion Gap (7-16) BUN (6-20) mg/dL Creatinine (0.5-0.9) mg/dL Estimated GFR mL/min Random Glucose (74-109) mg/dL Calcium (8.6-10.0) mg/dL Troponin T (0-0.010) ng/mL Urine Color Yellow Urine Appearance Clear Urine pH 7.0 (5.0-8.0) Ur Specific [place] 1.020 (1.002-1.030) Urine Protein Negative (NEGATIVE) Urine Glucose (UA) Negative (NEGATIVE) Urine Ketones Negative (NEGATIVE) Urine Blood Trace-i (NEGATIVE) Urine Nitrite Negative (NEGATIVE) Urine Bilirubin Negative (NEGATIVE) Urine Urobilinogen 0.2 (0.20 - 1.00) E.U./dL Ur Leukocyte Esterase Negative (NEGATIVE) Urine RBC 0 - 2 (NONE SEEN) Urine WBC 0 - 2 (0-2/hpf) Ur Epithelial Cells 0 - 2 (FEW) Urine Bacteria None seen Disposition Disposition: Discharge Clinical Impression: Vertigo Benign positional vertigo Qualifiers: Laterality: unspecified laterality Qualified Code(s): H81.10 - Benign paroxysmal vertigo, unspecified ear Disposition: Home, Self-Care Condition: (1) Good Instructions: Vertigo (ED), Benign Paroxysmal Positional Vertigo (ED) Additional Instructions: follow up with family doctor. return sooner if worse. Prescriptions: Meclizine HCl [Antivert] 25 mg PO BID #10 tab Forms: Patient Portal Access Quality - Quality Measures Quality Measures: N/A - Blood Pressure Screening Does Patient Have Any of the Following: No Blood Pressure Classification: Hypertensive Reading Systolic Measurement: 146 Diastolic Measurement: 76 Screening for High Blood Pressure: < First Hypertensive BP, F/U Documented > [ G8950] First Hypertensive Follow-up Interventions: Follow-up with rescreen GT 1 day and LT 4 weeks.
--- NOTE | 2017-11-02 09:36 | CT SCAN REPORT ---
EXAM: CT OF THE HEAD WITHOUT CONTRAST HISTORY: SUDDEN ONSET OF DIZZINESS ABOUT APPROXIMATELY ONE HOUR AGO. FEELS LIKE ROOM IS SPINNING. TECHNIQUE: Routine noncontrast CT examination of the head was obtained. Comparison: CT of the head without contrast dated 03/12/11. FINDINGS: The ventricles and subarachnoid spaces are normal in size. No area of abnormally increased or decreased attenuation is noted throughout the brain substance. No new abnormal extraaxial fluid collection is seen. The basilar artery again appears mildly tortuous. There is mild atherosclerotic calcification of the distal internal carotid arteries. There is mucosal thickening within the left maxillary sinus. Inflammatory fluid is noted in each maxillary sinus. The paranasal sinuses and mastoid air cells are otherwise clear. The orbits as visualized are normal in appearance. IMPRESSION: 1. NO CT EVIDENCE OF AN ACUTE INTRACRANIAL ABNORMALITY NOR MASS. 2. MILD ATHEROSCLEROTIC CALCIFICATION OF THE DISTAL INTERNAL CAROTID ARTERIES. 3. INFLAMMATORY CHANGES WITHIN THE MAXILLARY SINUSES. JOB NUMBER: [id number] MTDD
== END 2017-10-31 19:29 | disposition home or self-care (01) ==
LOC: ER 17:29
DX: H81.10 Benign paroxysmal vertigo, unspecified ear (principal); I48.91 Unspecified atrial fibrillation; I10 Essential (primary) hypertension; I25.2 Old myocardial infarction; Z87.891 Personal history of nicotine dependence
CPT/HCPCS: 70450; 80048; 81001; 84484; 85025; 99284

== ENCOUNTER 2017-11-28 22:03 | Emergency (ER) | payer BC ==
--- NOTE | 2017-11-28 22:18 | Emergency Department Record ---
History of Present Illness - General Chief Complaint: Arrythmia/Palpitations Stated Complaint: AFIB Time Seen by Provider: 11/28/17 22:12 Source: Patient Mode of Arrival: Wheelchair Limitations: No limitations - History of Present Illness Initial Comments: 57 yo female presents with palpitations that started tonight. She has a history of atrial fibrillation. She has a history of recurrent frequent palpitations. No chest pain, no syncope, no shortness of breath. No recent changes in her medications or changes in her health. She is on Xarelto and Cardizem. She recenetly had a uterine biopsy and held today's dose of Xaralto due to vaginal bleeding. She had resumed it after the procedure. 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 Complaint: Palpitations Onset/Timin -: Hour(s) Arrythmia History: Atrial fibrillation Associated Symptoms: Anxiety - Related Data Previous Rx's Medication Instructions Recorded Meclizine HCl [Antivert] 25 mg PO BID #10 tab 10/31/17 Allergies Allergy/AdvReac Type Severity Reaction Status Date / Time ciprofloxacin [From Cipro] Allergy Mild LIP Verified 10/31/17 17:38 NUMBNESS ciprofloxacin HCl Allergy Mild LIP Verified 10/31/17 17:38 [From Cipro] NUMBNESS erythromycin base Allergy Unknown VOMITING Verified 10/31/17 17:38 [ERYTHROMYCIN BASE] meperidine [MEPERIDINE] Allergy Unknown ALTERED Verified 10/31/17 17:38 MENTAL STATUS Sulfa (Sulfonamide Allergy Unknown RASH Verified 10/31/17 17:38 Antibiotics) [SULFA (SULFONAMIDE ANTIBIOTICS)] meperidine HCl [From Demerol] AdvReac HYPERSENSIT Verified 10/31/17 17:38 IVITY Travel Screening - Travel/Exposure Within Last 30 Days Have you traveled within the last 30 days?: No - Travel/Exposure Within Last Year Have you traveled outside the [place] in the last year?: No - Additonal Travel Details Have you been exposed to anyone with a communicable illness?: No - Travel Symptoms Symptom Screening: None Review of Systems Constitutional: Denies: Chills, Fever, Malaise, Weakness Eyes: Denies: Eye discharge ENT: Denies: Congestion, Throat pain Respiratory: Denies: Cough, Dyspnea, Hemoptysis Cardiovascular: Reports: Palpitations. Denies: Chest pain, Syncope Endocrine: Denies: Fatigue, Polydipsia, Polyuria Gastrointestinal: Denies: Abdominal pain, Diarrhea, Nausea, Vomiting Genitourinary: Denies: Dysuria, Urgency Musculoskeletal: Denies: Arthralgia, Back pain, Joint swelling, Myalgia Skin: Denies: Bruising, Change in color, Rash Neurological: Denies: Numbness, Weakness Psychiatric: Reports: Anxiety Hematological/Lymphatic: Denies: Blood Clots, Easy bleeding, Easy bruising Past Medical History - SOCIAL HISTORY Smoking Status: Former smoker Alcohol Use: None Drug Use: None - RESPIRATORY Hx Respiratory Disorders: Yes Hx Sleep Apnea: Yes Hx of CPAP: No - CARDIOVASCULAR Hx Cardio Disorders: Yes Hx Abnormal EKG: Yes Hx Cardiac Cath: No Hx Chest Pain: No Hx CHF: No Hx Deep Vein Thrombosis: No Hx Edema: No Hx Heart Attack: No Hx Hypertension: Yes Hx Hypotension: No Hx Irregular Heartbeat: Yes (A-Fib) Hx Palpitations: Yes Hx Pacemaker/Defib: No Hx Vascular Disease: No - NEURO Hx Neuro Disorders: No - GI Hx GI Disorders: Yes Hx Reflux: Yes Hx Ulcer: Yes Hx of Polyps: Yes Comment:: hx of constipation - Hx Genitourinary Disorders: Yes Hx Bladder Problem: Yes (bladder spasms) Comment:: n/a - ENDOCRINE Hx Endocrine Disorders: No Hx Diabetes: No Hx Thyroid Disease: No - MUSCULOSKELETAL Hx Musculoskeletal Disorders: Yes Hx Arthritis: No Hx Back Injury: No Hx Fibromyalgia: No Hx Gout: No Hx Musculoskeletal Disease: No Hx Osteoporosis: No - PSYCH Hx Psych Problems: Yes Hx Anxiety: Yes Hx Behavior Problems: No Hx Depression: Yes Hx Emotional Abuse: No Hx Sexual Abuse: No Hx Suicide Attempt: No - HEMATOLOGY/ONCOLOGY Hx Hematology/Oncology Disorders: No Comment:: Psoriasis Family Medical History Any Significant Family History?: Yes Hx Alcohol Use: Father, Mother Hx Anxiety: Father Hx Diabetes: Grandparents *Diabetes Comment: Both Grandmothers. Hx Heart Disease: Mother *Heart Comment: Atrial fib Hx HTN: Father Hx Stroke: Brother/Sister *Stroke Comment: sister had a stroke. Physical Exam - General General Appearance: Alert, Oriented x3, Cooperative, No acute distress Limitations: No limitations - Head Head exam: Normal inspection - Eye Eye exam: Normal appearance, PERRL - ENT ENT exam: Normal exam Ear exam: Normal external inspection Nasal Exam: Normal inspection Mouth exam: Normal external inspection - Neck Neck exam: Normal inspection - Respiratory Respiratory exam: Normal lung sounds bilaterally. negative: Respiratory distress - Cardiovascular Cardiovascular Exam: Regular rate, Irregular rhythm Peripheral Pulses: 2+: Radial (R), Radial (L) - GI/Abdominal GI/Abdominal exam: Soft - Rectal Rectal exam: Deferred - exam: Deferred - Extremities Extremities exam: Normal inspection, Full ROM, Normal capillary refill. negative: Tenderness - Back Back exam: Reports: Normal inspection, Full ROM. Denies: Muscle spasm, Rash noted, Tenderness - Neurological Neurological exam: Alert, Normal gait, Oriented X3 - Psychiatric Psychiatric exam: Normal affect, Normal mood - Skin Skin exam: Dry, Intact, Normal color, Warm. negative: Cyanosis, Diaphoretic, Erythema Course Vital Signs 11/28/17 22:07 Blood Pressure 138/98 - Reevaluation(s) Reevaluation #1: EKG 2215 atrial fibrillation rate is 111, intervals Qtc 488 axis normal, ST NS changes. Prior EKG 10/31/17 NSR. 11/28/17 23:14 11/29/17 00:00 The labs were reviewed No acute changes Patient has a card [facility] Maycolluisa Calabrese MD P:[phone] F:[phone] 11/29/17 01:05 The patient had converted to NSR on the monitor A follow up EKG was performed EKG 0100 NSR rate is 63, intervals normal, axis normal, ST normal The patient has remained asymptomatic in the ED She is stable for DC She is to call her PCP and professor of literacy in the morning for close follow up Medical Decision Making - Lab Data Result diagrams: 11/28/17 22:15 11/28/17 22:15 Disposition Disposition: Discharge Clinical Impression: Atrial fibrillation with controlled ventricular response Condition: (2) Stable Instructions: A-fib (Atrial Fibrillation) (ED) Additional Instructions: Call your heart doctor in the morning to inform him you had a few hours of atrial fibrillation tonight Return or be seen if the atrial fibrillation returns or call your heart doctor. Forms: Patient Portal Access Time of Disposition: 01:07 Quality - Quality Measures Quality Measures: N/A - Blood Pressure Screening Does Patient Have Any of the Following: Active Dx of HTN Blood Pressure Classification: Hypertensive Reading Systolic Measurement: 138 Diastolic Measurement: 98 Screening for High Blood Pressure: Patient Exclusion, Hx of HTN [G9744]
[2017-11-28 22:22] LABS: BASO % 0.1 % (0-6); EOS % 1.2 % (0-6); GRAN % 67.3 % (47-80); HEMATOCRIT 50.4 % (35.0-47.0); HEMOGLOBIN 15.8 gm/dl (11.6-16.0); LYMPH % 23.5 % (16-45); MEAN CELL VOLUME 94.9 fl (81-97); MEAN CORPUSCULAR HEMOGLOBIN 29.8 pg (27-33); MEAN CORPUSCULAR HGB CONC 31.3 g/dl (32-36); MEAN PLATELET VOLUME 9.4 fl (7.4-10.4); MONO % 7.9 % (0-9); PLATELET COUNT 329 K/uL (130-400); RED BLOOD COUNT 5.31 M/uL (3.80-5.40); RED CELL DISTRIBUTION WIDTH 13.6 % (11.5-14.5); WHITE BLOOD COUNT W/O DIFF 8.6 K/uL (4.2-12.2)
[2017-11-28 22:34] LABS: BLOOD UREA NITROGEN 28 mg/dL (6-20); CREATININE 0.8 mg/dL (0.5-0.9); EST GLOMERULAR FILTRATION RATE > 60 mL/min; PROTHROMBIN TIME (PATIENT) 10.8 SECONDS (9.5-12.1)
[2017-11-28 22:35] LABS: TOTAL PROTEIN 8.7 g/dL (6.6-8.7)
[2017-11-28 22:37] LABS: GLUCOSE,RANDOM 99 mg/dL (74-109)
[2017-11-28 22:40] LABS: ALBUMIN 4.3 g/dL (4.0-5.0); ALKALINE PHOSPHATASE 126 U/L (35-104); ALT/SGPT 19 U/L (<33); AST/SGOT 22 U/L (10.0-35.0)
[2017-11-28] MEDS ORDERED: DILTIAZEM 25MG/5ML VIAL IV ONE ×2 (22:57→22:59)
[2017-11-28] MEDS ORDERED: DILTIAZEM HCL 125 MG in 0.9 % SODIUM CHLORIDE 100ML 100 ML IV SCH (23:00)
== END 2017-11-29 01:36 | disposition home or self-care (01) ==
LOC: ER 22:03
DX: I48.0 Paroxysmal atrial fibrillation (principal); I10 Essential (primary) hypertension; Z87.891 Personal history of nicotine dependence; Z79.01 Long term (current) use of anticoagulants
CPT/HCPCS: 80053; 83735; 84443; 84484; 85025; 85610; 85730; 93005; 93010; 96374; 99284

== ENCOUNTER 2017-12-24 20:05 | Emergency (ER) | payer BC ==
[2017-12-24] MEDS ORDERED: DILTIAZEM 25MG/5ML VIAL IV ONE (20:40)
[2017-12-24] MEDS ORDERED: SODIUM CHLORIDE 0.9% 500 ML IV ONE (20:40)
--- NOTE | 2017-12-24 20:43 | Emergency Department Record ---
History of Present Illness - General Chief Complaint: Arrythmia/Palpitations Stated Complaint: IN AND OUT OF AFIB Time Seen by Provider: 12/24/17 20:35 Source: Patient Mode of Arrival: Ambulatory Limitations: No limitations - History of Present Illness Initial Comments: 57 yo female presents with palpitations. She has known atrial fibrillation that is intermittent. She states since 3 pm it has been coming and going. NO chest pain or dyspnea. No shortness of breath. Her concrete paver is in [place]. She did not call her concrete paver. The patient is no longer anticoagulated. 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 She had some bleeding and never resumed. MD Complaint: Atrial fibrillation, Irregular heart beat, Palpitations Onset/Timin -: Hour(s) Context: Occurred during rest Arrythmia History: Atrial fibrillation - Related Data Previous Rx's Medication Instructions Recorded Meclizine HCl [Antivert] 25 mg PO BID #10 tab 10/31/17 Allergies Allergy/AdvReac Type Severity Reaction Status Date / Time ciprofloxacin [From Cipro] Allergy Mild LIP Verified 10/31/17 17:38 NUMBNESS ciprofloxacin HCl Allergy Mild LIP Verified 10/31/17 17:38 [From Cipro] NUMBNESS erythromycin base Allergy Unknown VOMITING Verified 10/31/17 17:38 [ERYTHROMYCIN BASE] meperidine [MEPERIDINE] Allergy Unknown ALTERED Verified 10/31/17 17:38 MENTAL STATUS Sulfa (Sulfonamide Allergy Unknown RASH Verified 10/31/17 17:38 Antibiotics) [SULFA (SULFONAMIDE ANTIBIOTICS)] meperidine HCl [From Demerol] AdvReac HYPERSENSIT Verified 10/31/17 17:38 IVITY Travel Screening - Travel/Exposure Within Last 30 Days Have you traveled within the last 30 days?: No Review of Systems Constitutional: Denies: Chills, Fever, Malaise, Weakness Eyes: Denies: Eye discharge ENT: Denies: Congestion, Throat pain Respiratory: Denies: Cough Cardiovascular: Reports: Palpitations. Denies: Chest pain, Syncope Endocrine: Denies: Fatigue Gastrointestinal: Denies: Abdominal pain, Diarrhea, Nausea, Vomiting Genitourinary: Denies: Dysuria, Urgency Musculoskeletal: Denies: Arthralgia, Back pain, Joint swelling, Myalgia Skin: Denies: Bruising, Change in color, Rash Neurological: Denies: Headache, Numbness, Tingling, Tremors, Weakness Psychiatric: Denies: Anxiety Hematological/Lymphatic: Denies: Blood Clots, Easy bleeding, Easy bruising, Swollen glands Past Medical History - SOCIAL HISTORY Smoking Status: Former smoker Alcohol Use: None Drug Use: None - RESPIRATORY Hx Respiratory Disorders: Yes Hx Sleep Apnea: Yes Hx of CPAP: No - CARDIOVASCULAR Hx Cardio Disorders: Yes Hx Abnormal EKG: Yes Hx Cardiac Cath: No Hx Chest Pain: No Hx CHF: No Hx Deep Vein Thrombosis: No Hx Edema: No Hx Heart Attack: No Hx Hypertension: Yes Hx Hypotension: No Hx Irregular Heartbeat: Yes (A-Fib) Hx Palpitations: Yes Hx Pacemaker/Defib: No Hx Vascular Disease: No - NEURO Hx Neuro Disorders: No - GI Hx GI Disorders: Yes Hx Reflux: Yes Hx Ulcer: Yes Hx of Polyps: Yes Comment:: hx of constipation - Hx Genitourinary Disorders: Yes Hx Bladder Problem: Yes (bladder spasms) Comment:: n/a - ENDOCRINE Hx Endocrine Disorders: No Hx Diabetes: No Hx Thyroid Disease: No - MUSCULOSKELETAL Hx Musculoskeletal Disorders: Yes Hx Arthritis: No Hx Back Injury: No Hx Fibromyalgia: No Hx Gout: No Hx Musculoskeletal Disease: No Hx Osteoporosis: No - PSYCH Hx Psych Problems: Yes Hx Anxiety: Yes Hx Behavior Problems: No Hx Depression: Yes Hx Emotional Abuse: No Hx Sexual Abuse: No Hx Suicide Attempt: No - HEMATOLOGY/ONCOLOGY Hx Hematology/Oncology Disorders: No Comment:: Psoriasis Family Medical History Any Significant Family History?: Yes Hx Alcohol Use: Father, Mother Hx Anxiety: Father Hx Diabetes: Grandparents *Diabetes Comment: Both Grandmothers. Hx Heart Disease: Mother *Heart Comment: Atrial fib Hx HTN: Father Hx Stroke: Brother/Sister *Stroke Comment: sister had a stroke. Physical Exam - General General Appearance: Alert, Oriented x3, Cooperative, No acute distress Limitations: No limitations - Head Head exam: Atraumatic, Normocephalic, Normal inspection - Eye Eye exam: Normal appearance. negative: Conjunctival injection, Scleral icterus - ENT ENT exam: Normal exam Ear exam: Normal external inspection Nasal Exam: Normal inspection Mouth exam: Normal external inspection - Neck Neck exam: Normal inspection, Full ROM. negative: Tenderness - Respiratory Respiratory exam: Normal lung sounds bilaterally. negative: Respiratory distress - Cardiovascular Cardiovascular Exam: Irregular rhythm, Tachycardia. negative: Regular rate, Normal rhythm Peripheral Pulses: 2+: Radial (R), Radial (L) - GI/Abdominal GI/Abdominal exam: Soft. negative: Tenderness - Rectal Rectal exam: Deferred - exam: Deferred - Extremities Extremities exam: Normal inspection, Full ROM, Normal capillary refill. negative: Tenderness - Back Back exam: Reports: Normal inspection, Full ROM. Denies: Muscle spasm, Rash noted, Tenderness - Neurological Neurological exam: Alert, Normal gait, Oriented X3, Reflexes normal - Psychiatric Psychiatric exam: Normal affect, Normal mood - Skin Skin exam: Dry, Intact, Normal color, Warm Course Vital Signs 12/24/17 20:15 Temperature 97.8 F Pulse Rate 68 Respiratory 20 Rate Blood Pressure 159/130 Pulse Ox 98 - Reevaluation(s) Reevaluation #1: EKG 2020 rate 115 afib, intervals normal, axis L, ST NS changes inferior. Prior was on 11/29. NSR 12/24/17 20:42 12/24/17 21:35 The labs were reviewed No acute changes The patient is on the Cardizem drip after IVP Cardizem Still in atrial fibrillation 12/24/17 21:44 HF [facility] will be contacted where her concrete paver Bharati [phone] 12/24/17 21:45 She now appears on the monitor to have converted to NSR. 2nd EKG ordered 12/24/17 22:11 EKG 2152 NSR, rate 69, intervals normal, axis normal, ST normal DC home She is to call her PCP and Inside Sales Coordinator tomorrow Medical Decision Making - Lab Data Result diagrams: 12/24/17 20:36 12/24/17 20:36 Disposition Disposition: Discharge Clinical Impression: Atrial fibrillation Disposition: Home, Self-Care Condition: (1) Good Instructions: Heart Palpitations (ED), A-fib (Atrial Fibrillation) (ED) Additional Instructions: Call your Inside Sales Coordinator first thing in the morning to discuss your atrial fibrillation returning and the use of Xarelto Forms: Patient Portal Access Time of Disposition: 22:12 Quality - Quality Measures Quality Measures: N/A - Blood Pressure Screening Does Patient Have Any of the Following: Active Dx of HTN Blood Pressure Classification: Hypertensive Reading Systolic Measurement: 159 Diastolic Measurement: 130 Screening for High Blood Pressure: Patient Exclusion, Hx of HTN [G9744]
[2017-12-24] MEDS ORDERED: DILTIAZEM HCL 125 MG in 0.9 % SODIUM CHLORIDE 100ML 100 ML IV SCH (20:45)
[2017-12-24 20:49] LABS: BASO % 0.3 % (0-6); GRAN % 64.9 % (47-80); HEMATOCRIT 49.7 % (35.0-47.0); HEMOGLOBIN 16.1 gm/dl (11.6-16.0); LYMPH % 24.8 % (16-45); MEAN CELL VOLUME 93.6 fl (81-97); MEAN CORPUSCULAR HEMOGLOBIN 30.3 pg (27-33); MEAN CORPUSCULAR HGB CONC 32.4 g/dl (32-36); MEAN PLATELET VOLUME 9.4 fl (7.4-10.4); PLATELET COUNT 285 K/uL (130-400); RED BLOOD COUNT 5.31 M/uL (3.80-5.40); RED CELL DISTRIBUTION WIDTH 13.4 % (11.5-14.5); WHITE BLOOD COUNT W/O DIFF 7.1 K/uL (4.2-12.2)
[2017-12-24 20:59] LABS: BLOOD UREA NITROGEN 19 mg/dL (6-20)
[2017-12-24 21:00] LABS: CREATININE 0.8 mg/dL (0.5-0.9); EST GLOMERULAR FILTRATION RATE > 60 mL/min
[2017-12-24 21:02] LABS: GLUCOSE,RANDOM 98 mg/dL (74-109)
[2017-12-24 21:05] LABS: PARTIAL THROMBOPLASTIN TIME 32.7 SECONDS (24.5-39.1)
[2017-12-24] MEDS ORDERED: HEPARIN SODIUM 1000 UNIT/1 ML 10ML VIAL IVP ONE (21:40)
[2017-12-24] MEDS ORDERED: HEPARIN SODIUM/D5W 25,000 UNITS/500 ML BAG IV SCH (21:45)
== END 2017-12-24 22:21 | disposition home or self-care (01) ==
LOC: ER 20:05
DX: I48.91 Unspecified atrial fibrillation (principal); R06.02 Shortness of breath; I10 Essential (primary) hypertension; Z87.891 Personal history of nicotine dependence
CPT/HCPCS: 80048; 83735; 84484; 85025; 85610; 85730; 93005; 93010; 96374; 99284

== ENCOUNTER 2017-12-26 18:05 | Emergency (ER) | payer BC ==
--- NOTE | 2017-12-26 18:57 | Emergency Department Record ---
History of Present Illness - General Chief Complaint: Arrythmia/Palpitations Stated Complaint: AFIB Time Seen by Provider: 12/26/17 18:35 Source: Patient Mode of Arrival: Ambulatory Limitations: No limitations - History of Present Illness Initial Comments: The patient is here due going back into Afib 3-4 hours ago. She has a LONG hx of similar issues and is on Cardizem and Xarelto. The patient was just here in the ER 2 nights ago for the same thing but did convert spontaneously. The patient has been off her Xarelto for 3-4 weeks due to having a uterine biopsy 5 weeks ago and having some bleeding. That bleeding did stop but then she did have some rectal bleeding 3 weeks ago which has since stopped. Due to those episodes she has been reluctant to restart her Xarelto. The patient did talk with her [employer] nurse yesterday but is not sure what they told her. Since developing her Afib she has had no CP, SOB, JOCELYNE, sweating or nausea. MD Complaint: Atrial fibrillation, Irregular heart beat Onset/Timin -: Hour(s) Context: Other Arrythmia History: Atrial fibrillation Associated Symptoms: Anxiety Treatment Prior to Arrival Comment:: 2-81mg aspirin - Related Data Previous Rx's Medication Instructions Recorded Meclizine HCl [Antivert] 25 mg PO BID #10 tab 10/31/17 Allergies Allergy/AdvReac Type Severity Reaction Status Date / Time ciprofloxacin [From Cipro] Allergy Mild LIP Verified 10/31/17 17:38 NUMBNESS ciprofloxacin HCl Allergy Mild LIP Verified 10/31/17 17:38 [From Cipro] NUMBNESS erythromycin base Allergy Unknown VOMITING Verified 10/31/17 17:38 [ERYTHROMYCIN BASE] meperidine [MEPERIDINE] Allergy Unknown ALTERED Verified 10/31/17 17:38 MENTAL STATUS Sulfa (Sulfonamide Allergy Unknown RASH Verified 10/31/17 17:38 Antibiotics) [SULFA (SULFONAMIDE ANTIBIOTICS)] meperidine HCl [From Demerol] AdvReac HYPERSENSIT Verified 10/31/17 17:38 IVITY Travel Screening - Travel/Exposure Within Last 30 Days Have you traveled within the last 30 days?: No - Travel/Exposure Within Last Year Have you traveled outside the [place] in the last year?: No - Additonal Travel Details Have you been exposed to anyone with a communicable illness?: No - Travel Symptoms Symptom Screening: None Review of Systems Constitutional: Denies: Chills, Fever Eyes: Denies: Eye discharge ENT: Denies: Congestion, Other Respiratory: Denies: Dyspnea Cardiovascular: Reports: Arrhythmia, Palpitations. Denies: Chest pain, Dyspnea on exertion Endocrine: Denies: Fatigue Gastrointestinal: Denies: Abdominal pain Genitourinary: Denies: Dysuria Musculoskeletal: Denies: Back pain Past Medical History - SOCIAL HISTORY Smoking Status: Former smoker Alcohol Use: None Drug Use: None - RESPIRATORY Hx Respiratory Disorders: Yes Hx Sleep Apnea: Yes Hx of CPAP: No - CARDIOVASCULAR Hx Cardio Disorders: Yes Hx Abnormal EKG: Yes Hx Cardiac Cath: No Hx Chest Pain: No Hx CHF: No Hx Deep Vein Thrombosis: No Hx Edema: No Hx Heart Attack: No Hx Hypertension: Yes Hx Hypotension: No Hx Irregular Heartbeat: Yes (A-Fib) Hx Palpitations: Yes Hx Pacemaker/Defib: No Hx Vascular Disease: No - NEURO Hx Neuro Disorders: No - GI Hx GI Disorders: Yes Hx Reflux: Yes Hx Ulcer: Yes Hx of Polyps: Yes Comment:: hx of constipation - Hx Genitourinary Disorders: Yes Hx Bladder Problem: Yes (bladder spasms) Comment:: n/a - ENDOCRINE Hx Endocrine Disorders: No Hx Diabetes: No Hx Thyroid Disease: No - MUSCULOSKELETAL Hx Musculoskeletal Disorders: Yes Hx Arthritis: No Hx Back Injury: No Hx Fibromyalgia: No Hx Gout: No Hx Musculoskeletal Disease: No Hx Osteoporosis: No - PSYCH Hx Psych Problems: Yes Hx Anxiety: Yes Hx Behavior Problems: No Hx Depression: Yes Hx Emotional Abuse: No Hx Sexual Abuse: No Hx Suicide Attempt: No - HEMATOLOGY/ONCOLOGY Hx Hematology/Oncology Disorders: No Comment:: Psoriasis Family Medical History Any Significant Family History?: No Hx Alcohol Use: Father, Mother Hx Anxiety: Father Hx Diabetes: Grandparents *Diabetes Comment: Both Grandmothers. Hx Heart Disease: Mother *Heart Comment: Atrial fib Hx HTN: Father Hx Stroke: Brother/Sister *Stroke Comment: sister had a stroke. Physical Exam - General General Appearance: Alert, Oriented x3, Cooperative, No acute distress - Head Head exam: Atraumatic, Normocephalic, Normal inspection - Eye Eye exam: Normal appearance, PERRL - ENT Throat exam: Normal inspection. negative: Tonsillar erythema, Tonsillar exudate - Neck Neck exam: Normal inspection, Full ROM. negative: Tenderness - Respiratory Respiratory exam: Normal lung sounds bilaterally. negative: Respiratory distress - Cardiovascular Cardiovascular Exam: Normal heart sounds, Irregular rhythm - GI/Abdominal GI/Abdominal exam: Soft, Normal bowel sounds. negative: Tenderness - Extremities Extremities exam: Normal inspection, Full ROM, Normal capillary refill. negative: Tenderness - Neurological Neurological exam: Alert. negative: Motor sensory deficit Course Vital Signs 12/26/17 18:06 Temperature 97.6 F Pulse Rate 85 Respiratory 20 Rate Blood Pressure 142/78 Pulse Ox 96 - Reevaluation(s) Reevaluation #1: The patient is doing very well at this time. She is resting comfortably and able to walk around with no problems or difficulty. She is still in Afib with a very controlled rate. Due to the patient being very stable I feel she is OK for discharge on anticoagulation. I did discuss the case with Dr. Ochoa (Cardiology ) from [place] and he would like the patient to receive one shot of Lovenox and restart her Xarelto. The patient understands and will call the office tomorrow for an appointment. 12/26/17 20:08 Medical Decision Making - Data Complexity MDM Data: Labs Ordered and/or Reviewed, EKG Ordered and/or Reviewed - Lab Data Result diagrams: 12/26/17 19:02 12/26/17 19:02 - EKG Data -: EKG Interpreted by Me EKG: No Acute Changes (Afib with a controlled rate.) Disposition Disposition: Discharge Clinical Impression: Atrial fibrillation Qualifiers: Atrial fibrillation type: paroxysmal Qualified Code(s): I48.0 - Paroxysmal atrial fibrillation Disposition: Home, Self-Care Condition: (2) Stable Instructions: Heart Palpitations (ED) Additional Instructions: Please restart your Xarelto as directed and please see your [employer] later this week for recheck. Return to the ER for any worsening symptoms. Forms: Patient Portal Access Time of Disposition: 20:11 Quality - Quality Measures Quality Measures: N/A - Blood Pressure Screening View Details: Yes Does Patient Have Any of the Following: No Blood Pressure Classification: Hypertensive Reading Systolic Measurement: 117 Diastolic Measurement: 93 Screening for High Blood Pressure: < First Hypertensive BP, F/U Documented > [ G8950] First Hypertensive Follow-up Interventions: Referral to alternative/primary care provider.
[2017-12-26 19:07] LABS: BASO % 0.1 % (0-6); EOS % 0.9 % (0-6); GRAN % 67.3 % (47-80); HEMATOCRIT 43.9 % (35.0-47.0); HEMOGLOBIN 14.3 gm/dl (11.6-16.0); LYMPH % 22.8 % (16-45); MEAN CELL VOLUME 95.4 fl (81-97); MEAN CORPUSCULAR HEMOGLOBIN 31.1 pg (27-33); MEAN CORPUSCULAR HGB CONC 32.6 g/dl (32-36); MEAN PLATELET VOLUME 8.9 fl (7.4-10.4); MONO % 8.9 % (0-9); PLATELET COUNT 273 K/uL (130-400); RED CELL DISTRIBUTION WIDTH 13.4 % (11.5-14.5); WHITE BLOOD COUNT W/O DIFF 6.8 K/uL (4.2-12.2)
[2017-12-26 19:19] LABS: BLOOD UREA NITROGEN 16 mg/dL (6-20); PARTIAL THROMBOPLASTIN TIME 30.5 SECONDS (24.5-39.1)
[2017-12-26 19:20] LABS: CREATININE 0.6 mg/dL (0.5-0.9); EST GLOMERULAR FILTRATION RATE > 60 mL/min
[2017-12-26 19:22] LABS: GLUCOSE,RANDOM 111 mg/dL (74-109)
[2017-12-26 19:25] LABS: CREATINE PHOSPHOKINASE 131 U/L (26-192)
[2017-12-26 19:27] LABS: CKMB 2.4 ng/mL (<3.77)
[2017-12-26] MEDS ORDERED: ENOXAPARIN 100 MG/ML SYR SQ ONE (20:08)
== END 2017-12-26 20:31 | disposition home or self-care (01) ==
LOC: ER 18:05
DX: I48.0 Paroxysmal atrial fibrillation (principal); I10 Essential (primary) hypertension; Z79.01 Long term (current) use of anticoagulants; Z87.891 Personal history of nicotine dependence
CPT/HCPCS: 80048; 82550; 82553; 84484; 85025; 85610; 85730; 93005; 93010; 96372; 99284; J1650

== ENCOUNTER 2018-02-05 14:37 | Emergency (ER) | payer BC ==
--- NOTE | 2018-02-05 15:12 | Emergency Department Record ---
History of Present Illness - General Chief Complaint: Arrythmia/Palpitations Stated Complaint: IN & OUT OF AFIB Time Seen by Provider: 02/05/18 14:59 Source: Patient Mode of Arrival: Ambulatory Limitations: No limitations - History of Present Illness Initial Comments: The patient is here due to feeling palpitations at home like her Afib in the past. They lasted about 4 hours but then resolved. The patient now feels completely back to normal. She has a long hx of intermittent AFib. She denied any CP, SOB, or JOCELYNE with it. MD Complaint: Atrial fibrillation, Palpitations Onset/Timin -: Hour(s) Arrythmia History: Atrial fibrillation Associated Symptoms: Denies other symptoms - Related Data Previous Rx's Medication Instructions Recorded Meclizine HCl [Antivert] 25 mg PO BID #10 tab 10/31/17 Allergies Allergy/AdvReac Type Severity Reaction Status Date / Time ciprofloxacin [From Cipro] Allergy Mild LIP Verified 02/05/18 14:47 NUMBNESS ciprofloxacin HCl Allergy Mild LIP Verified 02/05/18 14:47 [From Cipro] NUMBNESS erythromycin base Allergy Unknown VOMITING Verified 02/05/18 14:47 [ERYTHROMYCIN BASE] meperidine [MEPERIDINE] Allergy Unknown ALTERED Verified 02/05/18 14:47 MENTAL STATUS Sulfa (Sulfonamide Allergy Unknown RASH Verified 02/05/18 14:47 Antibiotics) [SULFA (SULFONAMIDE ANTIBIOTICS)] meperidine HCl [From Demerol] AdvReac HYPERSENSIT Verified 02/05/18 14:47 IVITY Travel Screening - Travel/Exposure Within Last 30 Days Have you traveled within the last 30 days?: No Review of Systems Constitutional: Denies: Chills, Fever Eyes: Denies: Eye discharge ENT: Denies: Congestion Respiratory: Denies: Cough, Dyspnea Past Medical History - SOCIAL HISTORY Smoking Status: Former smoker Alcohol Use: None Drug Use: None - RESPIRATORY Hx Respiratory Disorders: Yes Hx Sleep Apnea: Yes Hx of CPAP: No - CARDIOVASCULAR Hx Cardio Disorders: Yes Hx Abnormal EKG: Yes Hx Cardiac Cath: No Hx Chest Pain: No Hx CHF: No Hx Deep Vein Thrombosis: No Hx Edema: No Hx Heart Attack: No Hx Hypertension: Yes Hx Hypotension: No Hx Irregular Heartbeat: Yes (A-Fib) Hx Palpitations: Yes Hx Pacemaker/Defib: No Hx Vascular Disease: No - NEURO Hx Neuro Disorders: No - GI Hx GI Disorders: Yes Hx Reflux: Yes Hx Ulcer: Yes Hx of Polyps: Yes Comment:: hx of constipation - Hx Genitourinary Disorders: Yes Hx Bladder Problem: Yes (bladder spasms) Comment:: n/a - ENDOCRINE Hx Endocrine Disorders: No Hx Diabetes: No Hx Thyroid Disease: No - MUSCULOSKELETAL Hx Musculoskeletal Disorders: Yes Hx Arthritis: No Hx Back Injury: No Hx Fibromyalgia: No Hx Gout: No Hx Musculoskeletal Disease: No Hx Osteoporosis: No - PSYCH Hx Psych Problems: Yes Hx Anxiety: Yes Hx Behavior Problems: No Hx Depression: Yes Hx Emotional Abuse: No Hx Sexual Abuse: No Hx Suicide Attempt: No - HEMATOLOGY/ONCOLOGY Hx Hematology/Oncology Disorders: No Comment:: Psoriasis Family Medical History Any Significant Family History?: Yes Hx Alcohol Use: Father, Mother Hx Anxiety: Father Hx Diabetes: Grandparents *Diabetes Comment: Both Grandmothers. Hx Heart Disease: Mother *Heart Comment: Atrial fib Hx HTN: Father Hx Stroke: Brother/Sister *Stroke Comment: sister had a stroke. Physical Exam - General General Appearance: Alert, Oriented x3, Cooperative, No acute distress - Head Head exam: Atraumatic, Normocephalic, Normal inspection - Eye Eye exam: Normal appearance, PERRL - Neck Neck exam: Normal inspection, Full ROM. negative: Tenderness - Respiratory Respiratory exam: Normal lung sounds bilaterally. negative: Respiratory distress - Cardiovascular Cardiovascular Exam: Regular rate, Normal rhythm, Normal heart sounds - GI/Abdominal GI/Abdominal exam: Soft, Normal bowel sounds. negative: Tenderness - Extremities Extremities exam: Normal inspection, Full ROM, Normal capillary refill. negative: Tenderness - Neurological Neurological exam: Alert, Normal gait. negative: Abnormal gait, Motor sensory deficit Course Vital Signs 02/05/18 14:48 Temperature 98.4 F Pulse Rate 74 Respiratory 20 Rate Blood Pressure 142/87 Pulse Ox 97 - Reevaluation(s) Reevaluation #1: The patient denies any pain, SOB, JOCELYNE, or sweating. She feels completely back to normal now that she is out of the Afib. She is to see her PCP as planned. 02/05/18 15:10 Medical Decision Making - Data Complexity MDM Data: EKG Ordered and/or Reviewed - EKG Data -: EKG Interpreted by Me EKG: No Acute Changes, Normal EKG (NSR at 64. Neg ischemic changes.) Disposition Disposition: Discharge Clinical Impression: Palpitations Disposition: Home, Self-Care Condition: (2) Stable Instructions: Heart Palpitations (ED) Additional Instructions: Continue your regular medicines and return to the ER for any problems. Forms: Patient Portal Access Time of Disposition: 15:11 Quality - Quality Measures Quality Measures: N/A - Blood Pressure Screening View Details: Yes Does Patient Have Any of the Following: No Blood Pressure Classification: Pre-Hypertensive BP Reading Systolic Measurement: 142 Diastolic Measurement: 87 Screening for High Blood Pressure: < Pre-Hypertensive BP, F/U Documented > [ [id number]] Pre-Hypertensive Follow-up Interventions: Referral to alternative/primary care provider.
== END 2018-02-05 15:21 | disposition home or self-care (01) ==
LOC: ER 14:37
DX: R00.2 Palpitations (principal); I48.91 Unspecified atrial fibrillation; Z79.01 Long term (current) use of anticoagulants; Z87.891 Personal history of nicotine dependence; I10 Essential (primary) hypertension
CPT/HCPCS: 93005; 93010; 93041; 99284